=== PATIENT | female | born 1980 | race Caucasian/White ===

== ENCOUNTER → 2018-12-04 20:02 | Outpatient (CLI) | payer OTHER, SELFPAY ==
--- NOTE | 2018-12-04 20:16 | XR_ITS ---
EXAM: XR lumbar spine 6V w bending HISTORY: ITS.REASON: lOW BACK PAIN ORDERING PHYSICIAN: Juju Goldstein PATIENT AGE: 38 years COMPARISON: None FINDINGS: Normal alignment. No fracture or dislocation. No lytic or blastic change. There is mild degenerative disc disease at L5-S1 Incidental vascular calcification noted of the aorta. IMPRESSION: Mild degenerative disc disease L5-S1
== END ==
PROVIDERS: PCP Nurse Practitioner Family; Visit Provider Nurse Practitioner Family
DX: M54.5 Low back pain (principal)
CPT/HCPCS: 72114

== ENCOUNTER → 2019-02-17 08:51 | Outpatient (CLI) | payer OTHER, SELFPAY ==
--- NOTE | 2019-02-17 08:56 | XR_ITS ---
XR hand RT min 3V HISTORY: Posttraumatic pain, follow-up fracture ITS.REASON: 3 views ORDERING PHYSICIAN: Mary Lou Sethi MD PATIENT AGE: 38 years COMPARISON: 02/02/2019 FINDINGS: Comminuted nondisplaced fracture involves the distal aspect of the fifth metacarpal with mild radial and palmar angulation of the distal fracture fragment not significant change. No other abnormalities apparent. IMPRESSION: No change nondisplaced comminuted mildly angulated fracture of the distal aspect of the fifth metacarpal/boxer's fracture
== END ==
PROVIDERS: PCP Nurse Practitioner Family; Visit Provider Orthopaedic Surgery
DX: S62.339A Displaced fracture of neck of unspecified metacarpal bone, initial encounter for closed fracture (principal)
CPT/HCPCS: 73130

== ENCOUNTER → 2019-02-24 10:15 | Outpatient (CLI) | payer OTHER, SELFPAY ==
--- NOTE | 2019-02-24 10:23 | XR_ITS ---
XR hand RT min 3V HISTORY: Follow-up fracture ITS.REASON: rt hand boxer fx followup ORDERING PHYSICIAN: Mary Lou Sethi MD PATIENT AGE: 38 years COMPARISON: 02/17/2019 FINDINGS: Mildly impacted non-displaced fracture involves the distal aspect of the fifth metacarpal consistent with a boxer's fracture unchanged. The distal fracture fragment is angulated toward the radius. IMPRESSION: No change nondisplaced impacted boxer's fracture fifth metacarpal
== END ==
PROVIDERS: PCP Nurse Practitioner Family; Visit Provider Orthopaedic Surgery
DX: S62.331A Displaced fracture of neck of second metacarpal bone, left hand, initial encounter for closed fracture (principal)
CPT/HCPCS: 73130

== ENCOUNTER 2019-03-24 09:00 | Outpatient (RCR) | payer OTHER, SELFPAY | END 2019-04-21 11:14 | disposition home or self-care (01) | LOC: OT 09:00 | PROVIDERS: Visit Provider Physician Assistant Medical | DX: S62.339A Displaced fracture of neck of unspecified metacarpal bone, initial encounter for closed fracture (principal) | CPT/HCPCS: 97110; 97140; 97165 ==

== ENCOUNTER 2020-08-16 13:59 | Emergency (ER) | payer OTHER, SELFPAY ==
[2020-08-16 14:50] VITALS: BP 199/118; PULSE 79; RESP 14; TEMP 36.8; O2SAT 98; BMI 28.0
--- NOTE | 2020-08-16 15:08 | HMH.EDUTC ---
[facility] Disposition Clinical Impression: Viral syndrome, Exposure to COVID-19 virus Pharyngitis Qualifiers: Pharyngitis/tonsillitis etiology: unspecified etiology Qualified Code(s): J02.9 - Acute pharyngitis, unspecified Disposition: Home, Self-Care Condition on Discharge: Good Instructions: Preventing the Spread of Coronavirus Discharge Instructions Additional Instructions: Drink plenty of fluids. Take tylenol for pain or fever. Return if you begin to have difficulty breathing. Follow up with your regular doctor. GO TO THE ER FOR ANY WORSENING SYMPTOMS Prescriptions: Benzonatate [Tessalon Perle 100mg Cap] 100 mg PO TIDP PRN #30 cap PRN Reason: Cough [facility] Azithromycin [Z-Isrrael 250mg Tab*] 250 mg PO UD DOSE PK #6 tab Transmission Status: Received by [facility] Referrals: Valerie Khanna APRN [Primary Care Provider] - Forms: Work/School Release Time of Disposition: 15:17 Medical Decision Making - Medical Records Medical records reviewed: No: I reviewed the patient's medical records. - [place] Inquiry Pt receiving controlled substance: No Vital Signs: 08/16/20 14:50 08/16/20 15:27 Temperature 98.3 F 98.3 F Temperature Source Oral Pulse Rate 79 Pulse Rate [Right Brachial] 79 Respiratory Rate 14 14 Blood Pressure 199/118 H Blood Pressure [Right Arm] 199/118 H Blood Pressure Mean [Right Arm] 145 Blood Pressure Source [Right Arm] Automatic Cuff Blood Pressure Position [Right Arm] Sitting 02 Sat by Pulse Oximetry 98 Oxygen Delivery Method Room Air Orders (Tests/Meds): ORDERS Category Date Time Status Covid-19 Nasal PCR Sendout Subhash Routine Lab 08/16/20 14:45 Received [facility] HPI - General Stated complaint: cough,sore throat,runny nose,achey Time Seen by Provider: 08/16/20 15:08 Mode of Arrival: Ambulatory Source of Information: Patient Limitations: No Limitations Description of Symptoms (Recalled from Triage Doc. by RN): PATIENT REQUESTING COVID TEST D/T EXPOSURE HEENT Symptoms (Recalled from RN notes): No Resp Symptoms (Recalled from RN notes): No Skin Symptoms (Recalled from RN notes): No MS Symptoms (Recalled from RN notes): No Functional Status (Recalled from RN notes): WNL - History of Present Illness Provider Complaint: She c/o sinus congestion, sore throat, cough, and right ear pain for the past 2 days. She denies any documented covid exposure. - Related Data Previous Rx's Medication Instructions Recorded Azithromycin [Z-Isrrael 250mg Tab*] 250 mg PO UD DOSE PK #6 tab 08/16/20 Benzonatate [Tessalon Perle 100mg 100 mg PO TIDP PRN #30 cap 08/16/20 Cap] Allergies Allergy/AdvReac Type Severity Reaction Status Date / Time Penicillins [PENICILLINS] Allergy Mild Verified 02/24/19 11:17 - Worker's Comp Is this a Worker's Comp case?: No [facility] History - Hepatitis A Screen Drug use history?: No High risk sexual behaviors?: No History of sexually transmitted infection?: No Currently employed?: No Childcare worker?: No Do you have indoor plumbing?: Yes Do you have electricity?: Yes Attestation statement:: This patient has been screened for Hepatitis A risk factors. I have reviewed the patient's past medical history: Yes - Social History Smoking Status: Current every day smoker Tobacco Type: cigarettes # Packs/Day (cigarettes): 1 Alcohol Intake: never Occupational Status: other ROS Obtained: Yes All systems reviewed & no additional complaints - Constitutional Constitutional: Reports system reviewed and no additional complaints, except as docu - Eyes Eyes: Reports system reviewed and no additional complaints, except as docu - ENT Ears, Nose, Mouth, and Throat: Reports system reviewed and no additional complaints, except as docu - Cardiovascular Cardiovascular: Reports system reviewed and no additional complaints, except as docu - Respiratory Respiratory: Yes system jesus
[2020-08-16 15:27] VITALS: BP 199/118; PULSE 79; RESP 14; TEMP 36.8; O2SAT 98
[2020-08-18 15:55] LABS: Covid-19 Nasal PCR Sendout Lex Not Detected
== END 2020-08-16 15:29 | disposition home or self-care (01) ==
PROVIDERS: Emergency Provider Nurse Practitioner Family; PCP Nurse Practitioner
DX: Z20.828 Contact with and (suspected) exposure to other viral communicable diseases (principal); B34.9 Viral infection, unspecified; F17.210 Nicotine dependence, cigarettes, uncomplicated; Z88.0 Allergy status to penicillin
CPT/HCPCS: 99201; U0004

== ENCOUNTER 2021-07-18 09:00 | Outpatient (RCR) | payer OTHER, SELFPAY | END 2021-08-15 11:24 | disposition home or self-care (01) | LOC: PT.CARL 09:00 | PROVIDERS: PCP Nurse Practitioner; Visit Provider Orthopaedic Surgery | DX: M54.50 Low back pain, unspecified (principal) | CPT/HCPCS: 97010; 97014; 97110; 97140; 97163; G0283 ==

== ENCOUNTER 2022-07-25 14:24 | Emergency (ER) | payer OTHER, SELFPAY ==
[2022-07-25 16:00] VITALS: BP 141/76; PULSE 61; RESP 18; TEMP 36.8; O2SAT 97; BMI 29.9
--- NOTE | 2022-07-25 16:21 | EXP.UTC ---
Discharge Plan Disposition Patient Disposition: Home, Self-Care Condition: Good Prescriptions Prescriptions: New meclizine 25 mg tablet 25 mg PO TID PRN (Reason: dizziness) Qty: 30 0RF azithromycin [Zithromax Z-Isrrael] 250 mg tablet See Rx Instructions .ROUTE .COMPLEX 5 Days Qty: 6 0RF Rx Instructions: For 250 mg dose pack: take 500 mg today (day 1), then 250 mg for 4 days (days 2-5) methylprednisolone [Medrol (Isrrael)] 4 mg tablets,dose pack See Rx Instructions .Route .COMPLEX 6 Days Qty: 21 0RF Rx Instructions: taper pack; No Action azithromycin 250 MG tablet 250 mg PO UD DOSE PK Qty: 6 0RF Rx Instructions: Take two (2) tablets today, then one (1) tablet days #2 thru #5 benzonatate 100 MG capsule 100 mg PO TIDP PRN (Reason: Cough) Qty: 30 0RF Referrals Follow up/Referrals: Ellen Fox [Primary Care Provider] - See instructions Activity Restrictions/Add. Instructions Additional Instructions/Restrictions: *Monitor Temp, Over the counter Motrin or Tylenol as directed/as needed Tylenol every 4 hours and Motrin every 6 hours (as long as your family doctor has told you that you can take it) for fever or pain. and straight to ER if unable to lower temp less than 101.0 after medication given *Warm salt water gargles may help to soothe the throat *Throat Lozenges? *Warm fluids like tea with honey may help to soothe the throat? *Sleep elevated *Humidifier/Vaporizer *Flonase 2 sprays in each nostril daily but be aware that it may take 2-3 days before you notice improvement *Bromfed may cause drowsiness. Know how it effects you (your child) before driving, caring for small child, or sending your child to school. Not other antihistamines/allergy medications while taking bromfed Your throat swab was sent for culture. Those results are typically sent to your primary care. Be sure to follow up in 2-3 days with your family doctor/primary care physician if no improvement so they can review those result and treat if necessary. If you don?t have a primary care doctor, I recommend you get one but in the mean time, you will have to return to a walk in clinic Follow up IMMEDIATELY for new or worsening symptoms or no Noticeable improvement over the next 48-72 hours. 911 for difficulty breathing or swallowing Clinical Impressions Clinical Impression: Otitis media Stand Alone Forms Stand Alone Forms: Work/School Release Instructions Patient Instructions: Middle Ear Infection, Vertigo Discharge ED Provider: Kylah Quan [facility] HPI General Stated complaint: dizzy, diarrhea Mode of Arrival: Ambulatory Source of Information: Patient Limitations: No Limitations Time Seen by Provider: 07/25/22 16:21 Description of Symptoms (Recalled from Triage Doc. by RN): PATIENT STATES SHE HAS BEEN SICK FOR APPROX 1 WEEK. SHE REPORTS SHE RETURNED TO WORK TODAY AND BECAME DIZZY AND ALMOST PASSED OUT HEENT Symptoms (Recalled from RN notes): Yes Resp Symptoms (Recalled from RN notes): No Skin Symptoms (Recalled from RN notes): No MS Symptoms (Recalled from RN notes): No Functional Status (Recalled from RN notes): WNL History of Present Illness Provider Complaint: Patient states that her son had flu about a week ago and she wasnt feeling well on Sunday States that she didnt feel well over the weekend but thought she was feeling better today and went to work States that she was having some pain and pressure in her left ear and while at work she started feeling bad again and felt dizzy like she was going to pass out but she sit down and she felt better States feels like she may have the flu or ear infection Related Data Previous Rx's Medication Instructions Recorded azithromycin 250 mg tablet 250 mg PO UD DOSE PK #6 tabs 08/16/20 benzonatate 100 mg capsule 100 mg PO TIDP PRN Cough #30 caps 08/16/20 azithromycin 250 mg tablet See Rx Instructions PO .COMPLEX 5 07/25/22 (Zithromax Z-Isrrael) days #
[2022-07-25 16:46] LABS: UTC Influenza A Antigen Negative (Negative); UTC Influenza B Antigen Negative (Negative)
[2022-07-25 16:54] VITALS: BP 141/76; PULSE 61; RESP 18; TEMP 36.8; O2SAT 97
== END 2022-07-25 16:56 | disposition home or self-care (01) ==
PROVIDERS: Emergency Provider Nurse Practitioner; PCP Nurse Practitioner Family
DX: H66.92 Otitis media, unspecified, left ear (principal); R42 Dizziness and giddiness; R19.7 Diarrhea, unspecified; I10 Essential (primary) hypertension; E78.5 Hyperlipidemia, unspecified; F17.210 Nicotine dependence, cigarettes, uncomplicated; Z79.52 Long term (current) use of systemic steroids; Z79.899 Other long term (current) drug therapy; Z88.0 Allergy status to penicillin; Z87.440 Personal history of urinary (tract) infections
CPT/HCPCS: 87804; 99213; G0463

== ENCOUNTER 2023-01-17 08:25 | Emergency (ER) | payer OTHER, SELFPAY ==
[2023-01-17 08:51] VITALS: BP 141/89; PULSE 76; RESP 18; TEMP 36.8; O2SAT 98; BMI 32.7
--- NOTE | 2023-01-17 09:18 | EXP.UTC ---
Discharge Plan Disposition Patient Disposition: Home, Self-Care Condition: Good Prescriptions Prescriptions: New cyclobenzaprine 10 mg tablet 10 mg PO TID PRN (Reason: muscle spasm) Qty: 12 0RF methylprednisolone [Medrol (Isrrael)] 4 mg tablets,dose pack See Rx Instructions .Route .COMPLEX 6 Days Qty: 21 0RF Rx Instructions: taper pack; No Action meclizine 25 mg tablet 25 mg PO TID PRN (Reason: dizziness) Qty: 30 0RF azithromycin [Zithromax Z-Isrrael] 250 mg tablet See Rx Instructions .ROUTE .COMPLEX 5 Days Qty: 6 0RF Rx Instructions: For 250 mg dose pack: take 500 mg today (day 1), then 250 mg for 4 days (days 2-5) methylprednisolone [Medrol (Isrrael)] 4 mg tablets,dose pack See Rx Instructions .Route .COMPLEX 6 Days Qty: 21 0RF Rx Instructions: taper pack; azithromycin 250 MG tablet 250 mg PO UD DOSE PK Qty: 6 0RF Rx Instructions: Take two (2) tablets today, then one (1) tablet days #2 thru #5 benzonatate 100 MG capsule 100 mg PO TIDP PRN (Reason: Cough) Qty: 30 0RF Referrals Follow up/Referrals: Valerie Khanna APRN [Primary Care Provider] - See instructions Activity Restrictions/Add. Instructions Additional Instructions/Restrictions: *Take Ibuprofen as prescribed with meal as needed for pain/inflammation *Not additional anti-inflammatory like motrin, aleve, advil with the above amount of ibuprofen. You can still take Tylenol every 4 hours as needed if you need something else for pain *Ice 20 minutes every 2 hours for the first 48 hours after the initial injury followed by moist heat every 20 minutes 3-4 times a day to affected area *Muscle relaxer every 8 hours as needed for muscle spasms but remember, it WILL cause drowsiness You cannot take it and work, drive, operate machinery or care for small children. *Keep this area active, no movement leads to more stiffness, However take it easy and avoid heavy lifting pushing or pulling *Follow up with you family doctor if no improvement for further treatment Clinical Impressions Clinical Impression: Low back pain with left-sided sciatica Qualifiers: Chronicity: unspecified Back pain laterality: left Qualified Code(s): M54.42 - Lumbago with sciatica, left side Stand Alone Forms Stand Alone Forms: Work/School Release Instructions Patient Instructions: Low Back Pain, DI for Sciatica, DI for Back Pain With Sciatica Discharge ED Provider: Kylah Quan [facility] General Stated complaint: Back pain Mode of Arrival: Ambulatory Source of Information: Patient Limitations: No Limitations Time Seen by Provider: 01/17/23 09:19 Description of Symptoms (Recalled from Triage Doc. by RN): pt states she is having lower L sharp back pain radiating down her leg. pt states she has a hx of sciatica. HEENT Symptoms (Recalled from RN notes): No Resp Symptoms (Recalled from RN notes): No Skin Symptoms (Recalled from RN notes): No MS Symptoms (Recalled from RN notes): Yes Functional Status (Recalled from RN notes): wnl History of Present Illness Provider Complaint: Patient states that she has a history of sciatica States that for the last few days she has been having sharp like pain in her left lower back/buttock area that goes into her her left upper leg States that it feels like it did when she had sciatica States that she is out of her muscle relaxers but took 800mg of Ibuprofen this morning prior to arrival Related Data Previous Rx's Medication Instructions Recorded azithromycin 250 mg tablet 250 mg PO UD DOSE PK #6 tabs 08/16/20 benzonatate 100 mg capsule 100 mg PO TIDP PRN Cough #30 caps 08/16/20 azithromycin 250 mg tablet See Rx Instructions PO .COMPLEX 5 07/25/22 (Zithromax Z-Isrrael) days #6 tabs meclizine 25 mg tablet 25 mg PO TID PRN dizziness #30 tabs 07/25/22 methylprednisolone 4 mg tablets in See Rx Instructions .Route 07/25/22 a dose pack (Medrol (Isrrael)) .COMPLEX 6 days #21 tabs cyclobenzaprine 10 mg tablet 10 mg PO TI
[2023-01-17 09:23] LABS: Apearance,Urine Clear (Clear); Bilirubin,Urine Negative (Negative); Blood, Urine Negative (Negative); Color,Urine Yellow (Yellow); Glucose,Urine (UA) Negative (Negative); Ketones,Urine Negative (Negative); PH,Urine 6.5 (5.0-8.5); Protein,Urine Negative (Negative); UTC Leukocyte Esterase,Urine Negative (Negative); UTC Nitrate,Urine Negative (Negative); Urobilinogen,Urine 0.2 EU/dl (0.2)
[2023-01-17 09:45] VITALS: BP 141/89; PULSE 73; RESP 18; TEMP 36.8
== END 2023-01-17 09:59 | disposition home or self-care (01) ==
PROVIDERS: Emergency Provider Nurse Practitioner; PCP Nurse Practitioner
DX: M54.42 Lumbago with sciatica, left side (principal); I10 Essential (primary) hypertension; E78.5 Hyperlipidemia, unspecified; F17.210 Nicotine dependence, cigarettes, uncomplicated
CPT/HCPCS: 81003; 96372; 99212; 99214; G0463

== ENCOUNTER 2024-05-28 02:36 | Emergency (ER) | payer OTHER, SELFPAY ==
[2024-05-28] VITALS (14 sets, daily range): BP systolic 176–228; BP diastolic 92–118; PULSE 65–88; RESP 14–22; TEMP 36.4–37.1; O2SAT 96–99; BMI 28.8
--- NOTE | 2024-05-28 02:35 | ECG_ITS ---
APPROVED REPORT Exam: Resting ECG HR:85 bpm ECG Measurements Heart Rate 85 AXES IN 159 P 63 QRSd 89 QRS 29 QT 377 T 32 QTc 419 Conclusion SINUS RHYTHM MINIMAL ST DEPRESSION [0.025+ mV ST DEPRESSION] BORDERLINE ECG No STEMI Electronically signed by : PELON ZUÑIGA, 05/28/2024 06:32:37
--- NOTE | 2024-05-28 02:42 | XR_ITS ---
PROCEDURE INFORMATION: Exam: XR Chest Exam date and time: 05/28/2024 2:44 AM Age: 43 years old Clinical indication: Pain; Chest pressure; Additional info: Cp TECHNIQUE: Imaging protocol: Radiologic exam of the chest. Views: 2 views. COMPARISON: No relevant prior studies available. FINDINGS: Tubes, catheters and devices: Overlying monitoring leads. Lungs: Few bilateral lower lung field linear opacities likely atelectatic. No lobar consolidation. Pleural spaces: No pleural effusion. No pneumothorax. Heart/Mediastinum: Cardiac silhouette not enlarged. Bones/joints: Bones unremarkable. IMPRESSION: No evidence of pneumonia. Few bilateral lower lung linear opacities most likely secondary to atelectasis.
[2024-05-28] MEDS: LABETALOL 20MG/4ML SYRINGE 10 MG IV ×2 (02:49→03:25)
[2024-05-28] MEDS: ASPIRIN 81MG CHEWABLE TABLET 324 MG PO (02:49)
--- NOTE | 2024-05-28 02:49 | [facility].EDCP ---
Discharge Plan Disposition Patient Disposition: Home, Self-Care Condition: Good Prescriptions Prescriptions: New hydrochlorothiazide 25 mg tablet 25 mg PO DAILY Qty: 14 0RF No Action meclizine 25 mg tablet 25 mg PO TID PRN (Reason: dizziness) Qty: 30 0RF azithromycin [Zithromax Z-Isrrael] 250 mg tablet See Rx Instructions .ROUTE .COMPLEX 5 Days Qty: 6 0RF Rx Instructions: For 250 mg dose pack: take 500 mg today (day 1), then 250 mg for 4 days (days 2-5) methylprednisolone [Medrol (Isrrael)] 4 mg tablets,dose pack See Rx Instructions .Route .COMPLEX 6 Days Qty: 21 0RF Rx Instructions: taper pack; azithromycin 250 MG tablet 250 mg PO UD DOSE PK Qty: 6 0RF Rx Instructions: Take two (2) tablets today, then one (1) tablet days #2 thru #5 benzonatate 100 MG capsule 100 mg PO TIDP PRN (Reason: Cough) Qty: 30 0RF cyclobenzaprine 10 mg tablet 10 mg PO TID PRN (Reason: muscle spasm) Qty: 12 0RF methylprednisolone [Medrol (Isrrael)] 4 mg tablets,dose pack See Rx Instructions .Route .COMPLEX 6 Days Qty: 21 0RF Rx Instructions: taper pack; Referrals Follow up/Referrals: Provider,Referral, MD [Primary Care Provider] - See instructions Activity Restrictions/Add. Instructions Additional Instructions/Restrictions: You were evaluated in the ER and are appropriate for discharge at this time. Take your metoprolol twice daily, morning and night. You already received a dose of this in the ER this morning. Continue taking your other home medications as prescribed. Also take the newly prescribed hydrochlorothiazide as directed. Follow-up with the cardiology office with Conchis Walters at 10:30 AM tomorrow 05/29/2024. Their phone number is [phone]. Their office is in the specialty clinic here in the hospital. Also follow-up with your primary care doctor in a few days to discuss your symptoms and your new medication changes. Return to the ER with new, worsening, or otherwise concerning symptoms. Clinical Impressions Clinical Impression: Chest pain, Hypertension Print Language Print Language: Vietnamese Discharge ED Provider: Hayder Bal General Chief Complaint: Chest Pain Stated Complaint: Chest Pain Time Seen by Provider: 05/28/24 02:41 Mode of Arrival: Ambulatory Source of Information: Patient Limitations: No Limitations Description of Symptoms (Recalled from ER Triage Doc. by RN): Patient presents to ED with chest pain that started around 0130 tonight. Patient states it is mostly in her right chest but will radiate to her back/left side of chest. Patient denies any injury. History of Present Illness HPI narrative: 43-year-old female with history of hypertension presents to the ER with complaints of chest pain starting approximately an hour prior to arrival. Patient states it woke her up with pain in the right side of her chest radiating to her back into the left side of the chest. Patient states she got up when the pain woke her up, went downstairs and took an antacid and ibuprofen. Did not initially provide relief so she came to the ER for evaluation. Patient reports taking metoprolol as well as some other medication for her blood pressure. She states she did take her medications tonight like she is supposed to. Patient states since arriving in the ER her pain has started to improve. She does not have worse pain with deep inspiration but did note that her pain was worse with activity. Patient states she had similar episode approximately 5 years ago and was evaluated in [place] where she had a normal stress test. Patient did report associated nausea with her symptoms earlier but the nausea has since resolved. No fevers, cough, dysuria, hematuria, shortness of breath, dizziness, or other associated symptoms. Related Data Previous Rx's ?Medication ?Instructions ?Recorded azithromycin 250 mg tablet 250 mg PO UD DOSE PK #6 tabs 08/16/20 benzonatate 100 mg capsule 100 mg PO TIDP PRN Cough #30 caps 08/16/20 azithromycin 250 mg tablet See Rx Instructions PO .COMPLEX 5 07/25/22 (Zithromax Z-Isrrael) days #6 tabs meclizine 25 mg tablet 25 mg PO TID PRN dizziness #30 tabs 07/25/22 methylprednisolone 4 mg tablets in See Rx Instructions .Route 07/25/22 a dose pack (Medrol (Isrrael)) .COMPLEX 6 days #21 tabs cyclobenzaprine 10 mg tablet 10 mg PO TID PRN muscle spasm #12 01/17/23 tabs methylprednisolone 4 mg tablets in See Rx Instructions .Route 01/17/23 a dose pack (Medrol (Isrrael)) .COMPLEX 6 days #21 tabs hydrochlorothiazide 25 mg tablet 25 mg PO DAILY #14 tabs 05/28/24 Allergies Allergy/AdvReac Type Severity Reaction Status Date / Time Penicillins [PENICILLINS] Allergy Mild Verified 01/17/23 08:56 [facility] Disclaimer: The information contained in this section may have been updated after the patient was seen, as this information can be updated by other users. Medical History (Updated 05/28/24 @ 06:25 by Hayder Bal MD) Urinary tract infection Hyperlipidemia Hypertension Social History (Updated 07/25/22 @ 16:14 by Lizzie Lassiter RN) Smoking Status: Current every day smoker tobacco type: cigarettes packs per day: 1 alcohol intake: never current occupational status: other Travel in the last 8 weeks: None ROS Obtained: Yes All systems reviewed & no additional complaints except as documented Positive ROS per HPI Physical Exam General General appearance: alert and in no apparent distress Head Head exam: atraumatic and normocephalic Eye Eye exam: Present PERRL and EOMI ENT ENT exam: Present mucous membranes moist Neck Neck exam: Present normal inspection and full ROM Chest Chest inspection: Present symmetric chest wall rise; Absent tenderness Respiratory Respiratory exam: Present normal lung sounds bilaterally; Absent respiratory distress, wheezes or stridor Cardiovascular Cardiovascular exam: Present regular rate and normal rhythm Abdominal Exam Abdominal exam: Present soft; Absent distention, tenderness, guarding or rebound Extremities Exam Extremities exam: Present full ROM and other (2+ pulses in all extremities); Absent edema Neurological Exam Neurological exam: Present alert and oriented X3; Absent motor sensory deficit Psychiatric Psychiatric exam: Present normal affect and normal mood Skin Skin exam: Present warm and dry HEART Score HEART Score HEART Score assessment performed?: Yes History (anamnesis): Slightly suspicious ECG: Non-specific disturbance Age: 45-65 years Risk factors: 1-2 risk factors Troponin: </= normal limit HEART Score: 3 Critical Care Critical Care Time Critical Care Time: Yes Attestation: On 05/28/24, the high probability of a clinically significant, sudden or life threatening deterioration of the following system(s) (cardiac) required my full and direct attention, intervention and personal management. The time I documented below is in addition to time spent performing reported procedures but includes the following listed in this critical care notation. Total Time Total Critical Care Time: 35 Medical Decision Making Medical Records Medical records reviewed: Yes I reviewed the patient's medical records. MR Comment: Patient evaluated in urgent care for left low back pain in January 2023 prescribed cyclobenzaprine and Medrol pack at that time. Patient also has a history of boxer's fracture in 2019. [place] Inquiry Pt receiving controlled substance: No Vital Signs Vital Signs: 05/28/24 02:37 05/28/24 02:49 05/28/24 02:59 Temperature 97.6 F Temperature Source Oral Pulse Rate 75 Pulse Rate [Right Brachial] 88 Respiratory Rate 18 14 Blood Pressure 228/118 H 195/103 H Blood Pressure [Right Arm] 228/115 H Blood Pressure Mean 158 Blood Pressure Mean [Right Arm] 152 Blood Pressure Source Blood Pressure Source [Right Arm] Automatic Cuff Blood Pressure Position Blood Pressure Position [Right Arm] Supine 02 Sat by Pulse Oximetry 99 98 Oxygen Delivery Method Room Air 05/28/24 03:22 05/28/24 03:22 05/28/24 03:25 Temperature Temperature Source Pulse Rate 68 Pulse Rate [Right Brachial] Respiratory Rate 18 Blood Pressure 208/106 H 208/106 H 208/106 H Blood Pressure [Right Arm] Blood Pressure Mean 133 Blood Pressure Mean [Right Arm] Blood Pressure Source Blood Pressure Source [Right Arm] Blood Pressure Position Blood Pressure Position [Right Arm] 02 Sat by Pulse Oximetry 97 Oxygen Delivery Method 05/28/24 03:31 05/28/24 03:54 05/28/24 03:57 Temperature Temperature Source Pulse Rate 67 65 Pulse Rate [Right Brachial] Respiratory Rate 18 17 Blood Pressure 188/95 H 196/96 H 196/96 H Blood Pressure [Right Arm] Blood Pressure Mean 126 125 Blood Pressure Mean [Right Arm] Blood Pressure Source Blood Pressure Source [Right Arm] Blood Pressure Position Blood Pressure Position [Right Arm] 02 Sat by Pulse Oximetry 97 98 Oxygen Delivery Method 05/28/24 04:00 05/28/24 04:30 05/28/24 05:00 Temperature Temperature Source Pulse Rate 66 69 70 Pulse Rate [Right Brachial] Respiratory Rate 21 22 17 Blood Pressure 182/102 H 176/92 H 176/100 H Blood Pressure [Right Arm] Blood Pressure Mean 120 125 Blood Pressure Mean [Right Arm] Blood Pressure Source Blood Pressure Source [Right Arm] Blood Pressure Position Blood Pressure Position [Right Arm] 02 Sat by Pulse Oximetry 98 96 96 Oxygen Delivery Method 05/28/24 05:30 05/28/24 05:41 Temperature Temperature Source Pulse Rate 66 72 Pulse Rate [Right Brachial] Respiratory Rate 20 20 Blood Pressure 179/107 H 186/94 H Blood Pressure [Right Arm] Blood Pressure Mean 131 Blood Pressure Mean [Right Arm] Blood Pressure Source Manual Cuff/ Auscultation Blood Pressure Source [Right Arm] Blood Pressure Position Supine Blood Pressure Position [Right Arm] 02 Sat by Pulse Oximetry 97 97 Oxygen Delivery Method Room Air Lab Data Labs: Lab Results 05/28/24 02:40: WBC 13.2 H, RBC 5.27, Hgb 16.4 H, Hct 51.3 H, MCV 97.4, MCH 31.1, MCHC 31.9, RDW 13.8, Plt Count 225, MPV 9.2, Neut % (Auto) 61.5, Lymph % (Auto) 29.1, [place] % (Auto) 6.3, Eos % (Auto) 2.0, Baso % (Auto) 1.1, Neut # (Auto) 8.1 H, Lymph # (Auto) 3.8, [place] # (Auto) 0.8, Eos # (Auto) 0.3, Baso # (Auto) 0.2, PT 10.0 L, INR 0.88 L, Sodium 138, Potassium 3.1 L, Chloride 109 H, Carbon Dioxide 25, Anion Gap 7.1, BUN 11, Creatinine 0.70, Estimated Creat Clear 138, Estimated GFR 90, Est GFR ( Amer) 109, Glucose 126 H, Calcium 9.1, Total Bilirubin 0.5, AST 26, ALT 30, Alkaline Phosphatase 94, Troponin I < 0.01, Total Protein 7.6, Albumin 4.3, Globulin 3.3 H, Albumin/Globulin Ratio 1.3 05/28/24 05:40: Troponin I < 0.01 05/28/24 02:40 05/28/24 02:40 Response Orders (Tests/Meds): ED MEDICATIONS Discontinued Medications Generic Name Dose Route Start Last Admin Trade Name Freq PRN Reason Stop Dose Admin Amlodipine Besylate 5 mg 05/28/24 05:46 05/28/24 05:50 Amlodipine 10mg Tablet PO 05/28/24 05:47 Not Given ONCE ONE Amlodipine Besylate 5 mg 05/28/24 05:49 05/28/24 05:50 Amlodipine 5mg Tablet PO 05/28/24 05:50 5 mg ONCE ONE Administration Aspirin 324 mg 05/28/24 02:42 05/28/24 02:49 Aspirin 81mg Chewable Tablet PO 05/28/24 02:43 324 mg ONCE ONE Administration Labetalol HCl 10 mg 05/28/24 02:42 05/28/24 02:49 Labetalol 20mg/4ml Syringe IV 05/28/24 02:43 10 mg ONCE ONE Administration Labetalol HCl 10 mg 05/28/24 03:22 05/28/24 03:25 Labetalol 20mg/4ml Syringe IV 05/28/24 03:23 10 mg ONCE ONE Administration Metoprolol Tartrate 50 mg 05/28/24 05:46 05/28/24 05:49 Metoprolol Tartrate 50mg Tablet PO 05/28/24 05:47 50 mg ONCE ONE Administration Potassium Chloride 40 meq 05/28/24 03:24 05/28/24 03:25 Potassium Chloride 20meq Tab PO 05/28/24 03:25 40 meq ONCE ONE Administration ORDERS Category Date Time Status XR chest 2V Stat Exams 05/28/24 02:42 Completed CMP [Comprehensive Metabolic Panel] Stat Lab 05/28/24 02:40 Completed Complete Blood Count Auto Diff Stat Lab 05/28/24 02:40 Completed PT INR [Prothrombin Time INR] Stat Lab 05/28/24 02:40 Completed Troponin I Q3H Lab 05/28/24 02:40 Completed Troponin I Q3H Lab 05/28/24 05:40 Completed Troponin I Q3H Lab 05/28/24 08:45 Ordered [facility] Narrative Medical Decision Narrative: In summary, this 43-year-old female presents to the emergency department today with chest pain in the setting of comorbidities of hypertension which increases her overall morbidity and risk of cardiac event. On initial evaluation patient is hypertensive but otherwise stable, well-appearing, cardiopulmonary exam is reassuring, no peripheral edema, no chest wall tenderness, remainder of exam benign. Differential diagnosis includes but is not limited to ACS, I considered PE however patient is PERC negative and does not require further workup of this at this time, hypertensive urgency/emergency, endorgan damage, also considered arrhythmia, electrolyte abnormality, esophageal spasm. Based on these concerns, I ordered cardiac workup, serum labs. ECG personally interpreted demonstrates normal sinus rhythm, rate 85, normal axis, normal DE and QTc, trace ST depressions in the inferior leads as well as lead V5, V6, however these are extremely subtle, no STEMI. Patient received aspirin, IV labetalol for treatment. Labetalol was administered for concerns of significant hypertension causing symptoms. After labetalol, patient's blood pressure improved to 197 systolic initially, however shortly thereafter was back above 200 and patient received another dose of labetalol. She did report resolved pain after the first dose. Labs personally reviewed demonstrate mild leukocytosis, hemoglobin slightly elevated at 16.4, normal platelets, mild hypokalemia, patient is receiving oral repletion, initial troponin undetectably low at less than 0.01, CMP otherwise nonactionable. Patient placed into ED observation at 0325 for serial troponins to rule out evolving AK and to preclude unnecessary admission. XR personally interpreted demonstrates no acute intrathoracic abnormality, see radiology read for final interpretation. After second dose of labetalol, patient has maintained blood pressures in the upper 180s systolics. She continues to be asymptomatic. I further reviewed medications with her, she states she takes losartan 100 mg nightly, metoprolol 50 mg in the morning, amlodipine 5 mg in the morning, as well as atorvastatin and daily aspirin. Patient received a dose of metoprolol and amlodipine in the ER. Repeat troponin also undetectably low at less than 0.01. Since patient had difficulty control hypertension in the ER and was symptomatic from her hypertension despite being compliant with her home medications, I called Dr. Avalos and had a discussion with him over the phone regarding her current medications. He recommends patient increase her metoprolol to twice daily and adding hydrochlorothiazide 25 mg daily as well as outpatient follow-up with the cardiology clinic at 10:30 AM tomorrow 05/29/2024 with Conchis Walters. Patient is appropriate for discharge at this time. She continues to be asymptomatic. During observation in the ER she had no concerning changes in her vitals. Patient was given instructions on symptomatic management, instructions about her new prescription changes, follow up instructions, and return precautions for the emergency department. Patient indicated understanding and was discharged in stable condition. Total time in ED observation 3 hours.
[2024-05-28 02:55] LABS: Basophils # 0.2 K/mm3 (0-0.2); Basophils % 1.1 % (0.1-2.0); Eosinophils # 0.3 K/mm3 (0.0-0.4); Hematocrit 51.3 % (37.0-47.0); Hemoglobin 16.4 g/dL (12.2-16.2); Lymphocytes # 3.8 K/mm3 (0.7-4.5); Lymphocytes % 29.1 % (10-50); Mean Corpuscular HGB Conc 31.9 g/dL (31.8-35.4); Mean Corpuscular Hemoglobin 31.1 pg (27.0-31.2); Mean Corpuscular Volume 97.4 fl (81-99); Mean Platelet Volume 9.2 fl (7.4-10.4); Monocytes # 0.8 K/mm3 (0.1-1.0); Monocytes % 6.3 % (1.7-9.3); Neutrophils # 8.1 K/mm3 (1.8-7.8); Neutrophils % 61.5 % (37.0-80.0); Platelet Count 225 K/mm3 (142-424); Red Blood Count 5.27 M/mm3 (4.20-5.40); Red Cell Distribution Width 13.8 % (11.5-17.5); White Blood Count 13.2 K/mm3 (4.8-10.8)
[2024-05-28 02:57] LABS: Albumin Level 4.3 g/dl (3.5-5.0); Chloride 109 mmol/L (98-107); Potassium 3.1 mmoL/L (3.5-5.1); Sodium 138 mmol/L (136-145)
[2024-05-28 03:00] LABS: Alanine Aminotransferase 30 U/L (12-78); Albumin/Globulin Ratio 1.3 (1.1-1.8); Alkaline Phosphatase 94 U/L (38-126); Anion Gap 7.1 mEq/L (5-15); Aspartate Amino Transferase 26 U/L (14-36); Bilirubin,Total 0.5 mg/dl (0.2-1.3); Blood Urea Nitrogen 11 mg/dl (7-17); Calcium 9.1 mg/dl (8.4-10.2); Carbon Dioxide 25 mmol/L (22.0-30.0); Creatinine Clearance Estimated 138 mL/min (50-200); Estimated Glomerular Filt Rate 90 ml/min (>60); GFR (African American) 109 ML/MIN (>60); Globulin 3.3 g/dL (1.3-3.2); Glucose 126 mg/dl (74-100); INR 0.88 (0.9-1.1); Total Protein,Serum 7.6 g/dl (6.3-8.2)
[2024-05-28 03:16] LABS: Troponin I < 0.01 ng/ml (0.00-0.034)
[2024-05-28] MEDS: POTASSIUM CHLORIDE 20MEQ TAB 40 MEQ PO (03:25)
[2024-05-28] MEDS: METOPROLOL TARTRATE 50MG TABLET 50 MG PO (05:49)
[2024-05-28] MEDS: AMLODIPINE 5MG TABLET 5 MG PO (05:50)
[2024-05-28 06:08] LABS: Troponin I < 0.01 ng/ml (0.00-0.034)
== END 2024-05-28 06:31 | disposition home or self-care (01) ==
PROVIDERS: Emergency Provider Emergency Medicine
DX: E87.6 Hypokalemia (principal); R07.9 Chest pain, unspecified; I10 Essential (primary) hypertension; E78.5 Hyperlipidemia, unspecified; F17.210 Nicotine dependence, cigarettes, uncomplicated
CPT/HCPCS: 71046; 80053; 84484; 85025; 85610; 93005; 96374; 96376; 99284

== ENCOUNTER 2024-06-05 13:33 | Outpatient (CLI) | payer OTHER, SELFPAY ==
--- NOTE | 2024-06-05 13:35 | CA_ITS ---
APPROVED REPORT EXAM: Comprehensive 2D, Doppler, and color-flow Echocardiogram Charter Coordinator: Shannen Pinto CRT Ht: 5 ft 8 in Wt: 199lbs BSA: 2.04 BP: 174/93 mmHg Indications: Abnormal ECG, Chest Pain, Dizziness and Vertigo, Fatigue, Hyperlipidemia, Hypertension/HDD, smoker 2D Dimensions Left Atrium 3.77 cm LVEF (Chavez's) 55.70 % LVOT 2.12 cm (M/F) 1.5-2.5 LV Volume 77.40 mL LA Volume 41.50 mL LA Volume Index 20.30 mL/m2 (M/F) 16-34 EF AP4 59.60 % EF AP2 57.0 % EF BP 55.7 % GL Strain -17.2 % M-Mode Dimensions RVDd 2.04 cm (0.9-2.6) LVDd 5.05 cm (3.5-5.7) Ao Diam 3.08 cm (2.0-3.7) LVDs 3.18 cm (3.5-5.7) IVSd 1.31 cm (0.6-1.1) PWd 0.95 cm (0.6-1.1) EF (Teich) 66.70% FS 37.00% EDV (Teich) 121.00 mL TAPSE 2.79 (<1.7) ESV (Teich) 40.30 mL LV Diastology MED E' 8.4 (>= 7 cm/sec) MED A' 12.60 cm/s LAT E' 7.7 (>= 10 cm/sec) LAT A' 9.20 cm/s Aortic Valve AoV Peak Peter. 158.0 (50-130 cm/s) AO Peak GR. 10.10 mmHg Tricuspid Valve TR P. Velocity 248.00 cm/s RAP Estimate 10.00 mmHg RVSP 34.60 mmHg Left Ventricle The left ventricle is normal size. The left ventricular systolic function is normal. The left ventricular ejection fraction is within the normal range. There is normal left ventricular wall thickness. There is normal LV segmental wall motion. The left ventricular diastolic function is normal. LVEF is 55%. Right Ventricle The right ventricle is normal size. The right ventricular systolic function is normal. Atria The left atrium size is normal. The right atrium size is normal. There is no Doppler evidence of interatrial shunt. Aortic Valve The aortic valve opens well. There is no aortic valvular stenosis. No aortic regurgitation is present. Mitral Valve The mitral valve is normal in structure. No evidence of mitral valve stenosis. There is no mitral valve regurgitation noted. Tricuspid Valve The tricuspid valve leaflets are thin and pliable. Trace tricuspid regurgitation. There is insufficient TR jet to estimate RVSP. Pulmonic Valve The pulmonary valve is normal in structure. Trace pulmonic regurgitation. Great Vessels The aortic root is normal in size. The ascending aorta is normal in size. IVC is normal in size and collapses >50% with inspiration. Pericardium There is no pericardial effusion. Other Information Study Quality: Adequate Conclusion Normal biventricular systolic function. No significant valvular stenosis or regurgitation. Electronically signed by : Chelsea Gimenez MD 06/08/2024 01:48:22
== END 2024-06-05 23:59 | disposition home or self-care (01) ==
LOC: RT 13:33
PROVIDERS: PCP Nurse Practitioner; Visit Provider Nurse Practitioner Family
DX: R07.89 Other chest pain (principal); R94.31 Abnormal electrocardiogram [ECG] [EKG]; R42 Dizziness and giddiness; I99.8 Other disorder of circulatory system
CPT/HCPCS: 93306

== ENCOUNTER 2024-06-10 11:41 | Outpatient (CLI) | payer OTHER, SELFPAY ==
--- NOTE | 2024-06-10 11:42 | CT_ITS ---
APPROVED REPORT Administrative Staff Supervisor: CLINICAL INDICATION Chest Pain TECHNIQUE Image Acquisition: A 128 slice MDCT scanner ([employer] View) was used for data acquisition. A noncontrast coronary calcium scan was performed. A CT attenuation threshold of 130 Hounsfield units (HU) was used for the detection of calcium in contiguous voxels of 1 sq mm in area to be counted as individual lesions. Bolus tracking in the ascending aorta with a threshold of 180 HU was performed. Immediately afterwards, ECG synchronized cardiac CT was then performed from the cardiac base to apex using retrospective gating with ECG tube current modulation. A total of 85 mL of Isovue 370 mg/mL contrast medium was administered at 5 mL/sec followed by a saline flush using a biphasic injection protocol. A tube voltage of 120 KVp was used. The patient received the following medications prior to the cardiac CT. 0.8 mg of sublingual nitroglycerin The average heart rate at the time of acquisition was 58 bpm and regular. Image Reconstruction Transaxial images were reconstructed at 0.67 mm slide thickness. Data was reviewed interactively on an advanced workstation capable of 2 and 3-dimensional displays in all conventional reconstruction formats, including multiplanar reformations, maximum intensity projections, curved multiplanar reformations, and volume rendered reconstructions. When applicable, selected routine images describing the relevant coronary anatomy and pathology were saved and sent to PACS. Complications None Technical Quality Overall image quality was good. Coronary artery opacification was adequate. Total DLP (Dose-Length Product) is 1933.4 mGy-cm. The reported value represents the total of one or more individual components during the CT acquisition of this date and at this time, and as such, the same value may appear in more than one CT report depending on the interpreting/reporting physicians. COMPARISON None FINDINGS CT Coronary Calcium Scoring LMA (Left Main Artery) = 0 LAD (Left Anterior Descending) = 89 LCX (Left Coronary Circumflex) = 33 RCA (Right Coronary Artery) = 3 Total Calcium Score = 126 using the AJ-130 method. The observed calcium score of 126 is at 99th percentile for subjects of the same age, sex, and race/ethnicity. The interpretation of the calcium heart score is based on the following continuum*: 0 = no calcified plaque detected (risk of coronary artery disease is very low ??? less than 5%) 1-10 = calcium detected in extremely minimal levels (risk of coronary diseases is still low ??? less than 10%) 11-100 = mild levels of plaque detected with certainty (mild or minimal narrowing of heart arteries is likely) 101-400 = definite,at least moderate levels of plaque detected (relatively high risk of a heart attack within 3-5 years) >401-999 = extensive levels of plaque detected (high risk of heart attack, high levels of vascular disease are present, high likelihood of at least one significant coronary narrowing) *The calcium heart score quantifies the burden of coronary calcification/plaque in the coronary arteries. The calcium heart score is not able to evaluate the presence or burden of non-calcified (i.e. soft) plaque. There is also moderate calcification in the descending thoracic aorta. Coronary CT Angiography The coronary arterial system is right dominant. Quantitative Stenosis Grading: Left Main (LM): The left main originates normally from the left sinus of Valsalva. The LM bifurcates into the left anterior descending artery and left circumflex artery. The LM is patent with no evidence of atherosclerosis. Left Anterior Descending (LAD) and Diagonal Branches: The LAD gives off 2 diagonal branch(es). There is mixed calcified/noncalcified plaque in the proximal LAD segment at the bifurcation with the first diagonal branch, with up to 50-70% luminal stenosis. There is no evidence of LAD-myocardial bridge. Left Circumflex (LCX) and Obtuse Marginals (OM): The LCX gives off 1 Obtuse Marginal (OM) branch(es). There is mixed calcified/noncalcified plaque in the proximal LCx segment with up to 70-90% luminal stenosis. Right Coronary Artery (RCA): The RCA originates normally from the right sinus of Valsalva. The RCA gives off a posterior descending artery (PDA) and posterolateral (PL) branches. There is a focus of calcified plaque in the proximal RCA segment, with no evidence of luminal stenosis. Non-Coronary Cardiac Findings: Analysis of the left ventricular (LV) structure and function was performed after 3-D reconstruction of the LV from axial images, with user-corrected automatic contouring for assessment of LV volumes and user-defined reconstruction from oblique planes for measurement of 3-D cardiac structure and function. -The left ventricle systolic function is normal. -There is no left atrial appendage filling defect. Two right pulmonary veins and two left pulmonary veins drain normally into the left atrium. -No pericardial thickening or calcification. -Central and branch pulmonary arteries in the [id number] are unremarkable. -Thoracic aorta within the visualized thoracic aortic-branches in the [id number] is unremarkable. Extracardiac Structures No significant extra-cardiac findings. Note, however, that this study is focused on the cardiac findings. IMPRESSION -Presence of coronary calcification with an Agatston score = 126 using the AJ-130 method. -The observed calcium score of 126 is at 99th percentile for subjects of the same age, sex, and race/ethnicity. -Moderate to severe plaque in the proximal LAD and proximal LCx segments, with possible flow-limiting atherosclerosis. -CAD-RADS 4A. Management recommendations per ACC/AHA guidelines*, as clinically appropriate. -Moderate calcification in the descending thoracic aorta. *Recommendations: CAD RADS 0: Reassurance. Consider non-atherosclerotic causes of chest pain. CAD RADS 1: Consider non-atherosclerotic causes of chest pain. Consider preventive therapy and risk factor modification. CAD RADS 2: Consider non-atherosclerotic causes of chest pain. Consider preventive therapy and risk factor modification, particularly for patients with nonobstructive plaque in multiple segments. CAD RADS 3: Consider further functional testing. Consider symptom-guided anti-ischemic and preventive pharmacotherapy as well as risk factor modification per published guideline statements. CAD RADS 4A: Consider further functional testing or invasive coronary angiography with revascularization per published guideline statements. Consider symptom-guided anti-ischemic and preventive pharmacotherapy as well as risk factor modification per published guideline statements. CAD RADS 4B: Invasive coronary angiography recommended with revascularization per published guideline statements. Consider symptom-guided anti-ischemic and preventive pharmacotherapy as well as risk factor modification per published guideline statements. CAD RADS 5: Consider invasive angiography and/or viability assessment with revascularization per published guideline statements. Consider symptom-guided anti-ischemic and preventive pharmacotherapy as well as risk factor modification per published guideline statements. CRITICAL RESULT None COMMUNICATION Per this written report The coronary and cardiac findings of this CCTA were reviewed, reported, and signed by Toni Gimenez MD (Tire Mechanic) Conclusion Electronically signed by : Chelsea Gimenez MD 06/11/2024 13:03:19
[2024-06-10 11:49] VITALS: BMI 24.3
[2024-06-10 11:58] VITALS: BP 159/68; PULSE 68; RESP 16; O2SAT 98
[2024-06-10] MEDS: METOPROLOL TARTRATE 25MG TABLET *IVABRADINE+METOPROLOL REGIMINE 25 MG PO (12:04)
[2024-06-10 12:08] LABS: Urine Pregnancy, HCG Qual. Negative (Negative)
[2024-06-10 12:16] LABS: Chloride 113 mmol/L (98-107); Potassium 3.3 mmoL/L (3.5-5.1); Sodium 139 mmol/L (136-145)
[2024-06-10 12:19] LABS: Anion Gap 5.3 mEq/L (5-15); Blood Urea Nitrogen 17 mg/dl (7-17); Calcium 9.3 mg/dl (8.4-10.2); Carbon Dioxide 24 mmol/L (22.0-30.0); Creatinine Clearance Estimated 102 mL/min (50-200); Estimated Glomerular Filt Rate 78 ml/min (>60); GFR (African American) 94 ML/MIN (>60); Glucose 99 mg/dl (74-100)
[2024-06-10 12:34] VITALS: BP 172/91; PULSE 62; RESP 16; O2SAT 95
[2024-06-10] MEDS: NITROGLYCERIN 0.4MG SL TABLET 0.8 MG SL (12:34)
[2024-06-10 12:37] VITALS: BP 164/102; PULSE 60; RESP 16; O2SAT 97
[2024-06-10 12:40] VITALS: BP 143/81; PULSE 64; RESP 16; O2SAT 96
[2024-06-10 12:43] VITALS: BP 137/73
[2024-06-10] MEDS: SODIUM CHLORIDE 0.9% 10ML SYR (RAD ONLY) 10 ML IV (12:52)
[2024-06-10] MEDS: IOPAMIDOL-370 (76%);100ML BOTTLE 85 ML IV (12:52)
[2024-06-10] MEDS: 0.9 % SODIUM CHLORIDE 50 ML VIAL IV (12:52)
[2024-06-10 12:56] VITALS: BP 143/83; PULSE 54; RESP 16; O2SAT 97
== END 2024-06-10 12:59 | disposition home or self-care (01) ==
PROVIDERS: PCP Physician Assistant; Visit Provider Nurse Practitioner Family
DX: R07.89 Other chest pain (principal); R94.31 Abnormal electrocardiogram [ECG] [EKG]; R42 Dizziness and giddiness; I99.8 Other disorder of circulatory system
CPT/HCPCS: 75574; 80048; 81025; Q9967

== ENCOUNTER 2024-07-10 08:23 | Day surgery (SDC) | payer OTHER, SELFPAY ==
[2024-07-10] VITALS (13 sets, daily range): BP systolic 121–156; BP diastolic 61–93; PULSE 51–72; RESP 16–18; TEMP 36.9; O2SAT 92–99; BMI 30.2
--- NOTE | 2024-07-10 07:16 | IR_ITS ---
APPROVED REPORT Patient Location: Outpatient Press Cutter: Andrew Parish, RT (R) PROCEDURES Left heart catheterization Left ventriculogram Selective coronary angiogram Bilateral selective renal angiogram Drug-eluting stent deployment to the first obtuse marginal artery INDICATION Abnormal CCTA, Angina pectoris, History of malignant hypertension suspected renal artery stenosis with renovascular hypertension Informed consent was obtained prior to the procedure. COMPLICATIONS NONE Estimated Blood Loss: LESS THAN 10 ML TECHNIQUE One percent lidocaine used to anesthetize the right anterior aspect of the wrist. The right radial artery was accessed via the Seldinger technique. A 6 [place]an sheath was placed in the right radial artery. 2.5 mg of Verapamil, 800 mcg of nitroglycerin, 1mg Lidocaine and 5000 U Heparin were given through the arterial sheath. Due to tortuosity in the antecubital region the catheter would not pass through that area. Because of this 1% lidocaine was used anesthetize the right groin the right femoral artery was accessed via the center technique and a 4 [place]an sheath is placed in the right femoral artery. A JL 4 JR4 catheter was used to perform left heart catheterization left ventriculogram selective coronary angiography as well as bilateral selective renal angiography. At the end of the procedure the 4 [place]an sheath was exchanged for a 6 [place]an sheath therapeutic Was administered giving a therapeutic ACT and a JL 4 guide catheter was placed in the left main artery followed by a Choice PT extra-support wire placed down the circumflex artery. A 2.5 x 22 mm Edson frontier stent was deployed at 16 cherry reducing the severe stenosis to 0%. ABBY-3 flow was present before and after the procedure. At the end the procedure the apparatus was removed the groin is reprepped closure change sheath was removed and hemostasis was achieved using Perclose device patient was transferred to the postop holding in stable condition ANGIOGRAPHIC RESULTS The left main artery Normal The left anterior descending artery Has a proximal concentric smooth 30% stenosis. The mid LAD then has a concentric 50% stenosis immediately after a large second diagonal artery. There is an additional mid vessel 30% stenosis along a tortuous bend. The first diagonal artery is medium in size and has an ostial 30% stenosis while a much larger caliber second diagonal artery has an ostial proximal concentric 60 to 70% stenosis. The second diagonal artery is nearly the same size as the mid LAD. The circumflex artery Is a nondominant yet still large vessel with a long concentric 30% proximal stenosis. A large first obtuse marginal artery has a proximal concentric 70% stenosis The right coronary artery Is a dominant vessel and has proximal 10 to 20% stenoses with distal 10% luminal regularities The CALLAHAN ventriculogram reveals Hyperdynamic at 70% The left ventricular end-diastolic pressure Elevated at 25 mmHg Bilateral renal arteries are singular and normal IMPRESSION Moderate to severe disease in the mid LAD involving a large second diagonal artery as described above which is best managed medically for the time being unless recalcitrant angina Severe disease in a large first obtuse marginal artery with successful stenting reducing the lesion to 0% with 1 drug-eluting stent Hyperdynamic ventricle Elevated LVEDP PLAN 1. Effient and aspirin 2. Recommend medical management for the mid LAD and large second diagonal artery. Bifurcating stents would be required in the LAD is not at the point where it requires revascularization. Currently patient's blood pressure remains elevated as does her LVEDP. There should be significant room to better control blood pressure and maximize antianginal medications and treating these lesions medically. If patient fails medical management revascularization can be considered in the future 3. Cardiac rehabilitation 4. Avoidance of tobacco products 5. LDL less than 55 to achieve this high-intensity statin Electronically signed by : Hipolito Avalos MD 07/10/2024 11:57:15
[2024-07-10 09:06] LABS: Basophils # 0.2 K/mm3 (0-0.2); Basophils % 1.3 % (0.1-2.0); Eosinophils # 0.4 K/mm3 (0.0-0.4); Hematocrit 49.1 % (37.0-47.0); Hemoglobin 16.7 g/dL (12.2-16.2); Lymphocytes # 3.1 K/mm3 (0.7-4.5); Lymphocytes % 27.6 % (10-50); Mean Corpuscular Hemoglobin 31.3 pg (27.0-31.2); Mean Corpuscular Volume 91.9 fl (81-99); Mean Platelet Volume 8.2 fl (7.4-10.4); Monocytes # 0.8 K/mm3 (0.1-1.0); Monocytes % 6.6 % (1.7-9.3); Neutrophils % 61.4 % (37.0-80.0); Platelet Count 226 K/mm3 (142-424); Red Blood Count 5.34 M/mm3 (4.20-5.40); Red Cell Distribution Width 13.6 % (11.5-17.5); White Blood Count 11.3 K/mm3 (4.8-10.8)
[2024-07-10 09:26] LABS: Chloride 108 mmol/L (98-107); Potassium 3.9 mmoL/L (3.5-5.1); Sodium 140 mmol/L (136-145)
[2024-07-10 09:28] LABS: Blood Urea Nitrogen 15 mg/dl (7-17); Creatinine Clearance Estimated 145 mL/min (50-200); Estimated Glomerular Filt Rate 90 ml/min (>60); GFR (African American) 109 ML/MIN (>60)
[2024-07-10 09:29] LABS: Anion Gap 9.9 mEq/L (5-15); Carbon Dioxide 26 mmol/L (22.0-30.0); Glucose 107 mg/dl (74-100)
[2024-07-10 10:25] LABS: HCG Qualitative, Serum Negative (Negative)
[2024-07-10] MEDS: diphenhydrAMINE 50MG/ML VIAL 50 MG IV (10:48)
[2024-07-10] MEDS: LIDOCAINE 1% 10ML MDV 20 ML IJ (10:48)
[2024-07-10] MEDS: VERAPAMIL 2.5MG/ML 2ML VIAL 2.5 MG IV (10:48)
[2024-07-10] MEDS: HEPARIN 1,000 UNITS/ML 10ML VIAL (CATH LAB) 10000 UNIT IV ×3 (10:48→11:43)
[2024-07-10] MEDS: HEPARIN 1,000 UNITS/500ML NS (CATH LAB) 3000 UNIT IV (10:49)
[2024-07-10] MEDS: NITROGLYCERIN 800MCG/8ML SYR (CATH LAB) 800 MCG IA (10:49)
[2024-07-10] MEDS: 0.9 % SODIUM CHLORIDE 500 ML 25 ML IV (10:50)
[2024-07-10] MEDS: PRASUGREL 10MG TAB 60 MG PO (11:39)
[2024-07-10] MEDS: MIDAZOLAM HCL 1MG/ML 5ML VIAL 1 MG IV (11:40)
[2024-07-10] MEDS: FENTANYL 100MCG/2ML VIAL 50 MCG IV (11:41)
[2024-07-10 13:44] LABS: CATHL Activated Clotting Time 223 SEC (74-125)
[2024-07-10] MEDS: IOPAMIDOL-370 (76%);100ML BOTTLE 105 ML IV (13:53)
== END 2024-07-10 14:55 | disposition home or self-care (01) ==
PROVIDERS: PCP Nurse Practitioner; Visit Provider Internal Medicine
DX: I25.118 Atherosclerotic heart disease of native coronary artery with other forms of angina pectoris (principal); I10 Essential (primary) hypertension; Z79.899 Other long term (current) drug therapy; I70.1 Atherosclerosis of renal artery; I15.0 Renovascular hypertension; F17.210 Nicotine dependence, cigarettes, uncomplicated; E78.5 Hyperlipidemia, unspecified; R93.1 Abnormal findings on diagnostic imaging of heart and coronary circulation; R06.02 Shortness of breath; Z82.49 Family history of ischemic heart disease and other diseases of the circulatory system
CPT/HCPCS: 36252; 80048; 84703; 85025; 85347; 92928; 93458; 99152; 99153; C1725; C1760; C1769; C1874; C1894; C9600; J1200; J1644; J2250; J3010; Q9967

== ENCOUNTER 2024-07-24 10:06 | Outpatient (CLI) | payer OTHER, SELFPAY ==
[2024-07-24 10:52] LABS: Basophils # 0.1 K/mm3 (0-0.2); Basophils % 0.9 % (0.1-2.0); Eosinophils # 0.3 K/mm3 (0.0-0.4); Eosinophils % 2.6 % (0.1-12.0); Hemoglobin 15.7 g/dL (12.2-16.2); Lymphocytes # 3.1 K/mm3 (0.7-4.5); Lymphocytes % 25.6 % (10-50); Mean Corpuscular HGB Conc 34.2 g/dL (31.8-35.4); Mean Corpuscular Hemoglobin 31.4 pg (27.0-31.2); Mean Corpuscular Volume 91.9 fl (81-99); Mean Platelet Volume 7.8 fl (7.4-10.4); Monocytes # 0.9 K/mm3 (0.1-1.0); Monocytes % 7.1 % (1.7-9.3); Neutrophils # 7.8 K/mm3 (1.8-7.8); Neutrophils % 63.9 % (37.0-80.0); Platelet Count 258 K/mm3 (142-424); Red Cell Distribution Width 13.7 % (11.5-17.5); White Blood Count 12.2 K/mm3 (4.8-10.8)
[2024-07-24 11:09] LABS: Anion Gap 11.2 mEq/L (5-15); Blood Urea Nitrogen 10 mg/dl (7-17); Calcium 9.2 mg/dl (8.4-10.2); Carbon Dioxide 24 mmol/L (22.0-30.0); Chloride 109 mmol/L (98-107); Estimated Glomerular Filt Rate 108 ml/min (>60); GFR (African American) 131 ML/MIN (>60); Glucose 80 mg/dl (74-100); Potassium 4.2 mmoL/L (3.5-5.1); Sodium 140 mmol/L (136-145)
== END 2024-07-24 23:59 | disposition home or self-care (01) ==
PROVIDERS: PCP Nurse Practitioner; Visit Provider Nurse Practitioner Family
DX: I25.118 Atherosclerotic heart disease of native coronary artery with other forms of angina pectoris (principal); R53.83 Other fatigue; I10 Essential (primary) hypertension; E78.2 Mixed hyperlipidemia; Z72.0 Tobacco use
CPT/HCPCS: 36415; 80048; 85025

== ENCOUNTER 2024-07-30 09:22 | Outpatient (RCR) | payer OTHER, SELFPAY | END 2024-07-30 23:59 | disposition home or self-care (01) | LOC: PT 09:22 | PROVIDERS: Visit Provider Internal Medicine | DX: Z98.890 Other specified postprocedural states (principal); Z95.5 Presence of coronary angioplasty implant and graft | CPT/HCPCS: 93798 ==

== ENCOUNTER 2024-08-20 11:50 | Outpatient (CLI) | payer OTHER, SELFPAY ==
[2024-08-20 13:07] LABS: Alanine Aminotransferase 16 U/L (12-78); Albumin Level 4.3 g/dl (3.5-5.0); Alkaline Phosphatase 66 U/L (38-126); Anion Gap 15.6 mEq/L (5-15); Aspartate Amino Transferase 26 U/L (14-36); Bilirubin,Direct 0.6 mg/dl (0.0-0.4); Bilirubin,Indirect 0.2 mg/dL (0.0-0.9); Bilirubin,Total 0.8 mg/dl (0.2-1.3); Bilirubin,Unconjugated 0.2 mg/dL (0.0-1.1); Blood Urea Nitrogen 17 mg/dl (7-17); Calcium 9.5 mg/dl (8.4-10.2); Carbon Dioxide 22 mmol/L (22.0-30.0); Chloride 105 mmol/L (98-107); Chol/HDL Ratio 6.9 (1-3.5); Cholesterol 257 mg/dl (140-200); Estimated Glomerular Filt Rate 68 ml/min (>60); GFR (African American) 82 ML/MIN (>60); Glucose 109 mg/dl (74-100); HDL Cholesterol 37 mg/dl (40-60); Potassium 4.6 mmoL/L (3.5-5.1); Sodium 138 mmol/L (136-145); Total Protein,Serum 7.2 g/dl (6.3-8.2); Triglycerides 176 mg/dl (30-150); VLDL Cholesterol 35 mg/dL (0-40)
[2024-08-20 13:17] LABS: Direct LDL Cholesterol 189.11 mg/dL (100-129)
== END 2024-08-20 23:59 | disposition home or self-care (01) ==
PROVIDERS: PCP Nurse Practitioner; Visit Provider Nurse Practitioner Family
DX: R06.83 Snoring (principal); I10 Essential (primary) hypertension; E78.2 Mixed hyperlipidemia; I25.118 Atherosclerotic heart disease of native coronary artery with other forms of angina pectoris; Z72.0 Tobacco use
CPT/HCPCS: 36415; 80048; 80061; 80076

== ENCOUNTER 2024-08-25 09:17 | Outpatient (CLI) | payer OTHER, SELFPAY ==
[2024-08-25 10:08] LABS: Chloride 107 mmol/L (98-107); Potassium 3.9 mmoL/L (3.5-5.1); Sodium 139 mmol/L (136-145)
[2024-08-25 10:11] LABS: Alanine Aminotransferase 17 U/L (12-78); Alkaline Phosphatase 75 U/L (38-126); Anion Gap 11.9 mEq/L (5-15); Aspartate Amino Transferase 22 U/L (14-36); Bilirubin,Direct 0.4 mg/dl (0.0-0.4); Bilirubin,Indirect 0.1 mg/dL (0.0-0.9); Bilirubin,Total 0.5 mg/dl (0.2-1.3); Blood Urea Nitrogen 21 mg/dl (7-17); Carbon Dioxide 24 mmol/L (22.0-30.0); Chol/HDL Ratio 5.8 (1-3.5); Cholesterol 193 mg/dl (140-200); Estimated Glomerular Filt Rate 60 ml/min (>60); GFR (African American) 73 ML/MIN (>60); HDL Cholesterol 33 mg/dl (40-60); Total Protein,Serum 6.7 g/dl (6.3-8.2); Triglycerides 135 mg/dl (30-150); VLDL Cholesterol 27 mg/dL (0-40)
[2024-08-25 10:12] LABS: Calcium 9.5 mg/dl (8.4-10.2); Glucose 92 mg/dl (74-100)
[2024-08-25 10:28] LABS: Direct LDL Cholesterol 139.26 mg/dL (100-129)
== END 2024-08-25 23:59 | disposition home or self-care (01) ==
LOC: LAB 09:17
PROVIDERS: Nurse Practitioner Family; PCP Nurse Practitioner; Visit Provider Nurse Practitioner
DX: R06.83 Snoring (principal); I25.118 Atherosclerotic heart disease of native coronary artery with other forms of angina pectoris; R06.02 Shortness of breath; R42 Dizziness and giddiness; E78.2 Mixed hyperlipidemia; R94.31 Abnormal electrocardiogram [ECG] [EKG]; I15.0 Renovascular hypertension; I11.9 Hypertensive heart disease without heart failure; Z72.0 Tobacco use
CPT/HCPCS: 36415; 80048; 80061; 80076

== ENCOUNTER → 2024-10-13 09:50 | Outpatient (CLI) | payer OTHER, SELFPAY | LOC: SL 10-16 09:51 | PROVIDERS: Visit Provider Nurse Practitioner Family | DX: R06.83 Snoring (principal); I10 Essential (primary) hypertension; E78.2 Mixed hyperlipidemia; I25.118 Atherosclerotic heart disease of native coronary artery with other forms of angina pectoris | CPT/HCPCS: G0399 ==

== ENCOUNTER 2024-10-14 12:40 | Outpatient (CLI) | payer OTHER, SELFPAY ==
--- NOTE | 2024-10-14 | CA_ITS ---
APPROVED REPORT Exam: Pharmacologic Technologist: Pepper Jarvis Ht: 5 ft 8 in Wt: 203 lbs BSA: 2.06 m2 HR: 70 bpm BP: 147/86 mmHg Stress Test Details Test: Lexiscan HR Resting HR: 70 bpm Max Heart Rate (APMHR): 175.227610 bpm Max HR Achieved: 99 bpm Target HR (85% APMHR): 148.096273 bpm % of APMHR: 56.57 Recovery HR: 83 bpm BP Resting BP: 147.0/86.0 mmHg Max BP: 147.0/86.0 mmHg Recovery BP: 133.0/79.0 mmHg ECG Resting ECG: Sinus rhythm Stress ECG Conclusion Symptoms: Nausea, dyspnea Arrhythmias/Ectopy: - ST-T Changes: Less than [address] depression. Conclusion: EKG portion unremarkable due to Lexiscan infusion. Electronically signed by : Chelsea Gimenez MD 10/15/2024 11:32:33
--- NOTE | 2024-10-14 12:46 | NM_ITS ---
APPROVED REPORT Exam: Nuclear Stress Test Indication: chest pain..soa..fatigue Patient Location: Outpatient Stress Tech: Pepper Jarvis NM Tech:Ashleigh Mariscal, ARRT, RT (R)(N) Ht: 5 ft 8 in Wt: 200 lbs Bra Size: 38c HR: 71 bpm BP: 147/86 mmHg BSA: 2.04 m2 TID: 1.26 BMI: 30.4 History: chest pain..soa..fatigue Procedure: Patient received 0.4 mg of intravenous Lexiscan, resting heart rate 71 bpm, resting blood pressure 147/86 mmHg, with Lexiscan maximum heart rate achieved was 104 bpm which is 85 % of the maximum predicted heart rate and blood pressure was 145/76 mmHg. With Lexiscan, patient denied any complaint of chest pain. Cardiac Stress and Resting SPECT Images: Cardiac Stress and Resting SPECT images were obtained using technetium 99m Myoview 32.1 mCi stress and 10.56 mCi at rest. Resting and stress imaging in supine and prone positions demonstrate no evidence of fixed or reversible perfusion defects. There is increase in transient ischemic dilatation ratio (TID 1.26), suggestive of possible multivessel disease or balanced ischemia. Gated imaging demonstrates normal global and regional LV systolic function. LVEF is calculated at 64%. Conclusion: No evidence of fixed or reversible perfusion defects. There is increase in transient ischemic dilatation ratio (TID 1.26), suggestive of possible multivessel disease or balanced ischemia. Gated imaging demonstrates normal global and regional LV systolic function. LVEF is calculated at 64%. Electronically signed by : Chelsea Gimenez MD 10/15/2024 11:25:41
[2024-10-14] MEDS: ISOTOPE MYOVIEW (PER STUDY) 1 DOSE IV (13:56)
[2024-10-14] MEDS: SODIUM CHLORIDE 0.9% 10ML SYR (RAD ONLY) 10 ML IV ×2 (13:56)
[2024-10-14] MEDS: REGADENOSON 0.4MG/5ML SYRINGE 0.4 MG IV (13:56)
== END 2024-10-14 23:59 | disposition home or self-care (01) ==
LOC: RAD 12:41
PROVIDERS: PCP Nurse Practitioner; Visit Provider Nurse Practitioner Family
DX: I25.10 Atherosclerotic heart disease of native coronary artery without angina pectoris (principal); R06.02 Shortness of breath
CPT/HCPCS: 78452; 93017; 93018; A9502; J2785

== ENCOUNTER 2024-11-04 08:08 | Day surgery (SDC) | payer OTHER, SELFPAY ==
[2024-11-04] VITALS (17 sets, daily range): BP systolic 85–155; BP diastolic 50–97; PULSE 58–78; RESP 18–20; O2SAT 90–97; BMI 31.3
--- NOTE | 2024-11-04 07:21 | IR_ITS ---
APPROVED REPORT Patient Location: Outpatient Computer Installation Engineer: Andrew Parish, RT (R) PROCEDURES Left heart catheterization Left ventriculogram Selective coronary angiogram Drug-eluting stent deployment to the proximal LAD extending into the second diagonal artery Angioplasty to the mid LAD INDICATION Known coronary artery disease, Worsening angina pectoris, Abnormal Myoview Informed consent was obtained prior to the procedure. COMPLICATIONS None Estimated Blood Loss: Less than 10 mls TECHNIQUE One percent lidocaine was used to anesthetize the right groin. The right femoral artery was accessed via the Seldinger technique. A 4-Scottish sheath was placed in the right femoral artery. The JL-4 and JR-4 catheter was also used to perform left heart catheterization left ventriculogram and selective coronary angiogram. At the end of the diagnostic angiogram therapeutic heparin was administered giving a therapeutic ACT and the guide catheter was placed in the left main artery followed by wire down the LAD and diagonal artery. A 2.5 x 26 mm Edson frontier stent was placed in the proximal LAD extending into the second diagonal artery and then deployed at 18 cherry. An additional 2.75 x 12 mm noncompliant balloon was then deployed in the ostial proximal segment of the first diagonal artery at 22 cherry to post dilate. A wire was then placed back through the side struts and into the LAD proper. A 2.5 x 12 mm compliant balloon was then deployed at 15 cherry to open the struts going into the LAD. An additional 3 mm x 12 mm noncompliant balloon was then deployed at 24 and then 26 cherry in the proximal portion of the 2.5 mm stent within the LAD. Excellent angiograph results were obtained with ABBY-3 flow being present before and after the procedure. At the end of the procedure the apparatus was removed the sheath was removed and hemostasis was achieved using TR banding patient was transferred to the postop holding in stable condition ANGIOGRAPHIC RESULTS The left main artery Normal The left anterior descending artery Is proximally normal and then gives rise to a small first diagonal artery which has an ostial 50% stenosis followed by a larger second diagonal artery which has a proximal concentric 80 to 90% stenosis. The LAD then has 40 to 50% stenosis distal to the second diagonal artery followed by an additional 30% stenosis along a tortuous bend The circumflex artery Is nondominant and has proximal concentric 40% stenosis with a stent in the large first obtuse marginal artery which is widely patent free of in-stent restenosis with excellent proximal distal transitioning. The circumflex artery does give rise to a small ramus intermedius which is widely patent The right coronary artery Is dominant and has proximal 20% stenosis The CALLAHAN ventriculogram reveals Normal 65% The left ventricular end-diastolic pressure 10 mmHg IMPRESSION Coronary disease as described above Successful stenting of the proximal LAD extending into a large second diagonal artery severe disease reduced to 0% with 1 drug-eluting stent Angioplasty to the mid LAD Normal ejection fraction Normal LVEDP PLAN 1. Dual antiplatelet therapy 2. Cardiac rehabilitation 3. Avoidance of tobacco products 4. Risk factor modification 5. LDL less than 55 to be achieved with high intensity statin Electronically signed by : Hipolito Avalos MD 11/04/2024 11:48:05
[2024-11-04 08:44] LABS: Basophils # 0.1 K/mm3 (0-0.2); Basophils % 0.4 % (0.1-2.0); Eosinophils # 0.4 K/mm3 (0.0-0.4); Eosinophils % 3.3 % (0.1-12.0); Hematocrit 44.8 % (37.0-47.0); Lymphocytes # 3.3 K/mm3 (0.7-4.5); Lymphocytes % 28.3 % (10-50); Mean Corpuscular HGB Conc 33.5 g/dL (31.8-35.4); Mean Corpuscular Hemoglobin 31.4 pg (27.0-31.2); Mean Corpuscular Volume 93.7 fl (81-99); Mean Platelet Volume 10.6 fl (7.4-10.4); Monocytes % 8.9 % (1.7-9.3); Neutrophils # 6.8 K/mm3 (1.8-7.8); Neutrophils % 58.5 % (37.0-80.0); Platelet Count 215 K/mm3 (142-424); Red Blood Count 4.78 M/mm3 (4.20-5.40); Red Cell Distribution Width 13.5 % (11.5-17.5); White Blood Count 11.6 K/mm3 (4.8-10.8)
[2024-11-04 09:22] LABS: Chloride 105 mmol/L (98-107)
[2024-11-04 09:23] LABS: Potassium 3.4 mmoL/L (3.5-5.1); Sodium 139 mmol/L (136-145)
[2024-11-04 09:26] LABS: Anion Gap 10.4 mEq/L (5-15); Blood Urea Nitrogen 12 mg/dl (7-17); Calcium 8.7 mg/dl (8.4-10.2); Carbon Dioxide 27 mmol/L (22.0-30.0); Creatinine Clearance Estimated 130 mL/min (50-200); Estimated Glomerular Filt Rate 77 ml/min (>60); GFR (African American) 93 ML/MIN (>60); Glucose 103 mg/dl (74-100)
[2024-11-04] MEDS: HEPARIN 1,000 UNITS/500ML NS (CATH LAB) 3000 UNIT IV (09:56)
[2024-11-04] MEDS: diphenhydrAMINE 50MG/ML VIAL 50 MG IV (09:56)
[2024-11-04] MEDS: 0.9 % SODIUM CHLORIDE 500 ML 25 ML IV (10:05)
[2024-11-04] MEDS: FENTANYL 100MCG/2ML VIAL 50 MCG IV (10:16)
[2024-11-04] MEDS: MIDAZOLAM HCL 1MG/ML 5ML VIAL 1 MG IV (10:16)
[2024-11-04] MEDS: LIDOCAINE 1% 10ML MDV 20 ML IJ (10:20)
[2024-11-04] MEDS: HEPARIN 1,000 UNITS/ML 10ML VIAL (CATH LAB) 10000 UNIT IV (10:35)
[2024-11-04] MEDS: PRASUGREL 10MG TAB 10 MG PO (11:00)
[2024-11-04] MEDS: ASPIRIN 81MG CHEWABLE TABLET 81 MG PO (11:00)
[2024-11-04] MEDS: IOPAMIDOL-370 (76%);100ML BOTTLE 110 ML IV (12:28)
[2024-11-04 12:42] LABS: CATHL Activated Clotting Time 369 SEC (74-125)
[2024-11-04] MEDS: ONDANSETRON 4MG/2ML VIAL 4 MG IV (14:36)
== END 2024-11-04 15:05 | disposition home or self-care (01) ==
PROVIDERS: PCP Nurse Practitioner; Visit Provider Internal Medicine
DX: I25.118 Atherosclerotic heart disease of native coronary artery with other forms of angina pectoris (principal); I77.1 Stricture of artery; I10 Essential (primary) hypertension; F17.210 Nicotine dependence, cigarettes, uncomplicated; E78.5 Hyperlipidemia, unspecified; Z79.899 Other long term (current) drug therapy
CPT/HCPCS: 80048; 85025; 85347; 92928; 92929; 93458; 99152; 99153; C1725; C1760; C1769; C1874; C1894; C9600; C9601; J1200; J1644; J2250; J2405; J3010; Q9967

== ENCOUNTER 2024-11-11 09:58 | Outpatient (CLI) | payer OTHER, SELFPAY ==
[2024-11-11 10:59] LABS: Basophils # 0.1 K/mm3 (0-0.2); Basophils % 0.5 % (0.1-2.0); Eosinophils # 0.5 K/mm3 (0.0-0.4); Hematocrit 43.3 % (37.0-47.0); Hemoglobin 14.2 g/dL (12.2-16.2); Lymphocytes # 3.4 K/mm3 (0.7-4.5); Lymphocytes % 25.8 % (10-50); Mean Corpuscular HGB Conc 32.8 g/dL (31.8-35.4); Mean Corpuscular Hemoglobin 31.1 pg (27.0-31.2); Mean Platelet Volume 10.8 fl (7.4-10.4); Monocytes % 7.8 % (1.7-9.3); Neutrophils # 8.1 K/mm3 (1.8-7.8); Neutrophils % 61.5 % (37.0-80.0); Platelet Count 241 K/mm3 (142-424); Red Blood Count 4.56 M/mm3 (4.20-5.40); Red Cell Distribution Width 13.6 % (11.5-17.5); White Blood Count 13.2 K/mm3 (4.8-10.8)
[2024-11-11 11:17] LABS: Chloride 105 mmol/L (98-107); Potassium 3.8 mmoL/L (3.5-5.1); Sodium 138 mmol/L (136-145)
[2024-11-11 11:20] LABS: Anion Gap 13.8 mEq/L (5-15); Blood Urea Nitrogen 13 mg/dl (7-17); Calcium 9.1 mg/dl (8.4-10.2); Carbon Dioxide 23 mmol/L (22.0-30.0); Estimated Glomerular Filt Rate 77 ml/min (>60); GFR (African American) 93 ML/MIN (>60); Glucose 96 mg/dl (74-100)
== END 2024-11-11 23:59 | disposition home or self-care (01) ==
LOC: LAB 09:58
PROVIDERS: PCP Nurse Practitioner; Visit Provider Internal Medicine
DX: Z95.5 Presence of coronary angioplasty implant and graft (principal)
CPT/HCPCS: 36415; 80048; 85025

== ENCOUNTER 2024-11-18 12:43 | Outpatient (RCR) | payer OTHER, SELFPAY | END 2025-02-24 14:00 | disposition home or self-care (01) | LOC: CR 12:43 | PROVIDERS: Visit Provider Nurse Practitioner Family | DX: I25.118 Atherosclerotic heart disease of native coronary artery with other forms of angina pectoris (principal) ==

== ENCOUNTER 2024-11-25 13:13 | Emergency (ER) | payer OTHER, SELFPAY ==
[2024-11-25] VITALS (15 sets, daily range): BP systolic 103–135; BP diastolic 59–92; PULSE 57–74; RESP 15–22; TEMP 36.7; O2SAT 95–99; BMI 30.4
--- NOTE | 2024-11-25 13:17 | XR_ITS ---
FINAL REPORT CLINICAL HISTORY: CP, SOA COMPARISON: None FINDINGS: A single portable view of the chest was obtained. The heart size and pulmonary vascularity are within normal limits. The mediastinum is within normal limits. No acute pulmonary abnormality is identified. The bony thorax is intact. IMPRESSION: No active cardiopulmonary disease. Reviewed, Interpreted and Dictated by Villa Stoctkon MD Transcribed by Marissa Mariano Authenticated and [facility]
--- NOTE | 2024-11-25 13:17 | ECG_ITS ---
APPROVED REPORT Exam: Resting ECG HR:70 bpm ECG Measurements Heart Rate 70 AXES AZ 159 P 63 QRSd 80 QRS 64 QT 386 T 62 QTc 406 Conclusion SINUS RHYTHM MINIMAL ST DEPRESSION [0.025+ mV ST DEPRESSION] BORDERLINE ECG Electronically signed by : GRACIELA REYES, 11/28/2024 10:59:31
--- NOTE | 2024-11-25 13:18 | ED_ITS ---
Discharge Plan Disposition Patient Disposition: Home, Self-Care Condition: Good Prescriptions Prescriptions: No Action ibuprofen 800 mg tablet 800 mg PO ONCE aspirin 81 mg tablet,delayed release (DR/EC) 81 mg PO DAILY pantoprazole [Protonix] 40 mg tablet,delayed release (DR/EC) 40 mg PO DAILY Qty: 30 5RF amlodipine [Norvasc] 5 mg tablet 5 mg PO DAILY Qty: 30 2RF isosorbide mononitrate 60 mg tablet extended release 24 hr 60 mg PO DAILY Qty: 90 2RF ranolazine 1,000 mg tablet extended release 12 hr 1,000 mg PO BID Qty: 60 5RF furosemide [Lasix] 40 mg tablet 20 mg PO DAILY Qty: 30 5RF metoprolol succinate 50 mg tablet extended release 24 hr 75 mg PO BID 30 Days Qty: 90 5RF meclizine 25 mg tablet 25 mg PO TID PRN (Reason: dizziness) Qty: 90 0RF rosuvastatin [Crestor] 40 mg tablet 40 mg PO DAILY Qty: 30 5RF valsartan 320 mg tablet 320 mg PO DAILY Qty: 30 11RF spironolactone 25 mg tablet See Rx Instructions .ROUTE .COMPLEX Qty: 90 3RF Dose Instruction: TAKE 1 TABLET BY MOUTH DAILY Rx Instructions: TAKE 1 TABLET BY MOUTH DAILY prasugrel HCl [Effient] 10 mg Tablet 10 mg PO DAILY Qty: 30 6RF Referrals Follow up/Referrals: Valerie Khanna APRN [Primary Care Provider] - See instructions Toni Gimenez MD [Staff Physician] - See instructions (Dr. Avalos follow-up in clinic at 1 PM tomorrow for chest pain recent stent placement) Activity Restrictions/Add. Instructions Additional Instructions/Restrictions: Follow-up with cardiology tomorrow in clinic continue to take all medications as prescribed return to the emergency department any worsening chest pain or shortness of breath. Clinical Impressions Clinical Impression: Chest pain Print Language Print Language: Colombian Discharge ED Provider: Sg Flores General Adult HPI <[address] - Last Filed: 11/25/24 17:38> General Chief complaint: Chest Pain Stated complaint: CP Time Seen by Provider: 11/25/24 13:15 Mode of Arrival: Ambulatory Source of Information: Patient Limitations: No Limitations History of Present Illness HPI narrative: 44-year-old female presents to the emergency department with chest pain that is located centrally/substernally, with some occasional radiation down to the patient's left shoulder and left arm, wrapped it is a burning , currently a 4 out of 10 pain. Patient states the pain started yesterday morning while she was washing dishes , she denies any fever or chills, does admit to hot flashes , admits to shortness of breath, denies any abdominal pain nausea vomiting constipation diarrhea no urinary type symptomatology, no melena no hematemesis, no hemoptysis, maximal pain was an 8 out of 10 yesterday. Patient has other past coronary artery stent was placed in July 2024, on dual antiplatelet therapy with Plavix and aspirin daily, other past medical history consistent with hypertension, hyperlipidemia, current everyday smoker, GERD, Onset (ago): day(s) Related Data Home Medications ?Medication ?Instructions ?Recorded ?Confirmed aspirin 81 mg tablet,delayed 81 mg PO DAILY 05/29/24 11/26/24 release ibuprofen 800 mg tablet 800 mg PO ONCE 05/29/24 11/26/24 Previous Rx's ?Medication ?Instructions ?Recorded prasugrel HCl 10 mg tablet 10 mg PO DAILY #30 tabs 07/10/24 (Effient) ranolazine 1,000 mg 1,000 mg PO BID #60 tabs 08/12/24 tablet,extended release,12 hr rosuvastatin 40 mg tablet (Crestor) 40 mg PO DAILY #30 tabs 08/20/24 furosemide 40 mg tablet (Lasix) 20 mg (1/2 x 40 mg) PO DAILY #30 08/25/24 tabs amlodipine 5 mg tablet (Norvasc) 5 mg PO DAILY #30 tabs 09/02/24 pantoprazole 40 mg tablet,delayed 40 mg PO DAILY #30 tabs 09/02/24 release (Protonix) isosorbide mononitrate 60 mg 60 mg PO DAILY #90 tabs 10/08/24 tablet,extended release 24 hr valsartan 320 mg tablet 320 mg PO DAILY #30 tabs 10/20/24 spironolactone 25 mg tablet See Rx Instructions .Route 11/11/24 .COMPLEX #90 tabs meclizine 25 mg tablet 25 mg PO TID PRN dizziness #90 tabs 11/26/24 metoprolol succinate 50 mg 75 mg (1.5 x 50 mg) PO BID 30 days 11/26/24 tablet,extended release 24 hr #90 tabs Allergies Allergy/AdvReac Type Severity Reaction Status Date / Time Penicillins (PENICILLINS) Allergy Mild Unknown Verified 11/26/24 13:30 allergy reaction isosorbide AdvReac Intermediate Headache Verified 11/26/24 13:30 PFSH <[address] - Last Filed: 11/25/24 17:38> [facility] Disclaimer: The information contained in this section may have been updated after the patient was seen, as this information can be updated by other users. Medical History (Updated 11/26/24 @ 13:56 by Tripp Yang RN) Vertigo Near syncope Coronary artery disease SOB (shortness of breath) on exertion Typical angina Abnormal findings on diagnostic imaging of heart and coronary circulation Urinary tract infection Hyperlipidemia Hypertension Surgical History S/P cardiac cath Social History Smoking Status: Current every day smoker tobacco type: cigarettes packs per day: 1 alcohol intake: never current occupational status: other Travel in the last 8 weeks: None Other Medical History Have you received the Flu Vaccine for this season: No Have you received the Pneumonia Vaccine: No <[address] - Last Filed: 11/25/24 17:38> ROS Obtained: Yes All systems reviewed & no additional complaints except as documented Physical Exam <[address] - Last Filed: 11/25/24 17:38> General General appearance: alert and in no apparent distress Head Head exam: atraumatic and normocephalic Eye Eye exam: Present normal appearance, PERRL and EOMI Neck Neck exam: Present full ROM; Absent meningismus Chest Chest inspection: Present normal inspection Respiratory Respiratory exam: Absent respiratory distress, wheezes, stridor, accessory muscle use or prolonged expiratory phase Cardiovascular Cardiovascular exam: Present normal rhythm and other (Pulses equal and symmetric in bilateral upper and lower extremities) Abdominal Exam Abdominal exam: Absent distention, tenderness, guarding, rebound or rigidity Extremities Exam Extremities exam: Absent edema Neurological Exam Neurological exam: Present alert Psychiatric Psychiatric exam: Present normal affect Skin Skin exam: Present warm and dry Medical Decision Making <[address] - Last Filed: 11/25/24 17:38> Medical Records Medical records reviewed: Yes I reviewed the patient's medical records. Screening: Per USPSTF and CDC recommendations, given the prevalence of disease in our region, it is our hospital?s policy to screen for HIV and viral Hepatitis for all patients aged 18 and over and those with ongoing risk factors. [place] Inquiry Pt receiving controlled substance: No [place] was queried for this patient: No Vital Signs: 11/25/24 13:20 11/25/24 14:05 11/25/24 14:30 Temperature 98.1 F Temperature Source Oral Pulse Rate 58 L 60 Pulse Rate [Left] 74 Respiratory Rate 18 16 Blood Pressure 103/59 L 119/69 Blood Pressure [Right Arm] 120/80 Blood Pressure Mean 80 Blood Pressure Mean [Right Arm] 93 Blood Pressure Source [Right Arm] Automatic Cuff Blood Pressure Position [Right Arm] Sitting 02 Sat by Pulse Oximetry 99 96 Oxygen Delivery Method Room Air Room Air 11/25/24 15:00 11/25/24 15:01 11/25/24 15:16 Temperature Temperature Source Pulse Rate 64 62 62 Pulse Rate [Left] Respiratory Rate 21 21 18 Blood Pressure 131/79 116/67 122/79 Blood Pressure [Right Arm] Blood Pressure Mean Blood Pressure Mean [Right Arm] Blood Pressure Source [Right Arm] Blood Pressure Position [Right Arm] 02 Sat by Pulse Oximetry 95 95 96 Oxygen Delivery Method Room Air Room Air Room Air 11/25/24 15:30 11/25/24 15:45 11/25/24 16:01 Temperature Temperature Source Pulse Rate 60 63 62 Pulse Rate [Left] Respiratory Rate 15 15 16 Blood Pressure 134/78 127/79 122/78 Blood Pressure [Right Arm] Blood Pressure Mean Blood Pressure Mean [Right Arm] Blood Pressure Source [Right Arm] Blood Pressure Position [Right Arm] 02 Sat by Pulse Oximetry 97 98 95 Oxygen Delivery Method Room Air Room Air Room Air 11/25/24 16:30 11/25/24 16:45 11/25/24 17:00 Temperature Temperature Source Pulse Rate 61 60 59 L Pulse Rate [Left] Respiratory Rate 21 22 Blood Pressure 118/92 H 125/88 122/82 Blood Pressure [Right Arm] Blood Pressure Mean Blood Pressure Mean [Right Arm] Blood Pressure Source [Right Arm] Blood Pressure Position [Right Arm] 02 Sat by Pulse Oximetry 97 96 97 Oxygen Delivery Method Room Air Room Air Room Air 11/25/24 17:15 11/25/24 17:30 11/25/24 17:48 Temperature 98.1 F Temperature Source Pulse Rate 58 L 57 L 61 Pulse Rate [Left] Respiratory Rate 19 17 16 Blood Pressure 135/82 122/83 132/78 Blood Pressure [Right Arm] Blood Pressure Mean 106 104 Blood Pressure Mean [Right Arm] Blood Pressure Source [Right Arm] Blood Pressure Position [Right Arm] 02 Sat by Pulse Oximetry 97 99 Oxygen Delivery Method Room Air Room Air Lab Data Lab results reviewed: Yes I reviewed the patient's lab results. Lab Results 11/25/24 13:41: WBC 13.3 H, RBC 4.63, Hgb 14.4, Hct 43.3, MCV 93.5, MCH 31.1, MCHC 33.3, RDW 13.3, Plt Count 257, MPV 10.5 H, Neut % (Auto) 58.8, Lymph % (Auto) 27.2, Dawes % (Auto) 9.3, Eos % (Auto) 4.0, Baso % (Auto) 0.3, Neut # (Auto) 7.8, Lymph # (Auto) 3.6, Dawes # (Auto) 1.2 H, Eos # (Auto) 0.5 H, Baso # (Auto) 0.0, PT 10.5, INR 0.93, D-Dimer 0.41, Sodium 135 L, Potassium 3.9, Chloride 107, Carbon Dioxide 20 L, Anion Gap 11.9, BUN 14, Creatinine 0.90, Estimated Creat Clear 112, Estimated GFR 67, Est GFR ( Amer) 82, Glucose 104 H, Calcium 8.9, Magnesium 1.9, Total Bilirubin 0.3, AST 51 H, ALT 22, Alkaline Phosphatase 74, Total Creatine Kinase 65, Troponin I < 0.01, Total Protein 7.0, Albumin 4.3, Globulin 2.7, Albumin/Globulin Ratio 1.6, Lipase 81, HCV Ab BRODIE w/Rflx PCR Qn Negative, HIV Ag/Ab Combo Qual Negative 11/25/24 16:16: Troponin I < 0.01 11/25/24 13:41 11/25/24 13:41 Orders (Tests/Meds): ED MEDICATIONS Discontinued Medications Generic Name Dose Route Start Last Admin Trade Name Freq PRN Reason Stop Dose Admin Morphine Sulfate 2 mg 11/25/24 16:00 11/25/24 16:24 Morphine 2mg/Ml Syringe IV 11/25/24 16:01 2 mg ONCE ONE Administration Ondansetron HCl 4 mg 11/25/24 16:01 11/25/24 16:24 Ondansetron 4mg/2ml Vial IV 11/25/24 16:02 4 mg ONCE ONE Administration ORDERS Category Date Time Status XR chest portable Stat Exams 11/25/24 13:17 Completed CK [Creatine Kinase] Stat Lab 11/25/24 13:41 Completed Complete Blood Count Auto Diff Stat Lab 11/25/24 13:41 Completed Comprehensive Metabolic Panel Stat Lab 11/25/24 13:41 Completed D-Dimer Stat Lab 11/25/24 13:41 Completed HIV Combo Stat Lab 11/25/24 13:41 Completed Hepatitis C Ab Qual. W/ RFX Stat Lab 11/25/24 13:41 Completed Lipase Stat Lab 11/25/24 13:41 Completed Magnesium Stat Lab 11/25/24 13:41 Completed PT INR [Prothrombin Time INR] Stat Lab 11/25/24 13:41 Completed Troponin I Q3H Lab 11/25/24 16:16 Completed Troponin I Stat Lab 11/25/24 13:41 Completed HEART Score History (anamnesis): Slightly suspicious ECG: Normal Age: 45-65 years Risk factors: 3 or more risk factors Troponin: </= normal limit HEART Score: 3 Medical Decision Narrative: 44-year-old female presents to the emergency department with chest pain, differential diagnosis to include but not limited to, ACS, cardiac arrhythmia, electrolyte disturbance, GERD, gastritis, pneumothorax, PE, pneumonia, costochondritis, anxiety type reaction, panic attack. I discussed patient case with attending physician Dr. Flores. Obtain basic laboratory studies, troponin and proBNP, EKG, chest x-ray, D-dimer, coagulation studies, for further evaluation/characterization, if 2 mg IV morphine for pain, and 4 mg IV Zofran for nausea. I along with the attending physician reviewed the patient's EKG at 1318, NSR at 70 bpm OH interval within normals, QT interval within normal limits, there is some minimal ST depression present in several leads however no contiguous lead, no ST elevations concerning for STEMI at this time. CBC is noted for minimal leukocytosis at 13.3, was unremarkable CBC. Coagulation studies within normal limits. D-dimer 0.41, negative for VTE or PE Reviewed the patient's chest x-ray along the corresponding radiologic report no active cardiopulmonary disease. Second troponin is within normal limits. Reexamination of the patient at approximately 5:25 PM, patient is currently chest pain-free and, 0 out of 10 chest pain. Discussed this patient's case with Dr. Avalos the on-call learning support specialist at 5:29 PM he recommends follow-up in the cardiology clinic tomorrow, if 2 troponins and EKGs are negative she is cleared to be discharged home. Will continue all her medications as prescribed. Patient voiced understanding agree with current treatment plan/discharge plan. Patient is otherwise remained hemodynamically stable without her time in the emergency department is currently chest pain-free upon discharge. Heart score is 3. <Sg Flores MD - Last Filed: 11/27/24 18:04> Vital Signs: 11/25/24 13:20 11/25/24 14:05 11/25/24 14:30 Temperature 98.1 F Temperature Source Oral Pulse Rate 58 L 60 Pulse Rate [Left] 74 Respiratory Rate 18 16 Blood Pressure 103/59 L 119/69 Blood Pressure [Right Arm] 120/80 Blood Pressure Mean 80 Blood Pressure Mean [Right Arm] 93 Blood Pressure Source [Right Arm] Automatic Cuff Blood Pressure Position [Right Arm] Sitting 02 Sat by Pulse Oximetry 99 96 Oxygen Delivery Method Room Air Room Air 11/25/24 15:00 11/25/24 15:01 11/25/24 15:16 Temperature Temperature Source Pulse Rate 64 62 62 Pulse Rate [Left] Respiratory Rate 21 21 18 Blood Pressure 131/79 116/67 122/79 Blood Pressure [Right Arm] Blood Pressure Mean Blood Pressure Mean [Right Arm] Blood Pressure Source [Right Arm] Blood Pressure Position [Right Arm] 02 Sat by Pulse Oximetry 95 95 96 Oxygen Delivery Method Room Air Room Air Room Air 11/25/24 15:30 11/25/24 15:45 11/25/24 16:01 Temperature Temperature Source Pulse Rate 60 63 62 Pulse Rate [Left] Respiratory Rate 15 15 16 Blood Pressure 134/78 127/79 122/78 Blood Pressure [Right Arm] Blood Pressure Mean Blood Pressure Mean [Right Arm] Blood Pressure Source [Right Arm] Blood Pressure Position [Right Arm] 02 Sat by Pulse Oximetry 97 98 95 Oxygen Delivery Method Room Air Room Air Room Air 11/25/24 16:30 11/25/24 16:45 11/25/24 17:00 Temperature Temperature Source Pulse Rate 61 60 59 L Pulse Rate [Left] Respiratory Rate 21 22 Blood Pressure 118/92 H 125/88 122/82 Blood Pressure [Right Arm] Blood Pressure Mean Blood Pressure Mean [Right Arm] Blood Pressure Source [Right Arm] Blood Pressure Position [Right Arm] 02 Sat by Pulse Oximetry 97 96 97 Oxygen Delivery Method Room Air Room Air Room Air 11/25/24 17:15 11/25/24 17:30 11/25/24 17:48 Temperature 98.1 F Temperature Source Pulse Rate 58 L 57 L 61 Pulse Rate [Left] Respiratory Rate 19 17 16 Blood Pressure 135/82 122/83 132/78 Blood Pressure [Right Arm] Blood Pressure Mean 106 104 Blood Pressure Mean [Right Arm] Blood Pressure Source [Right Arm] Blood Pressure Position [Right Arm] 02 Sat by Pulse Oximetry 97 99 Oxygen Delivery Method Room Air Room Air Lab Data Lab Results 11/25/24 13:41: WBC 13.3 H, RBC 4.63, Hgb 14.4, Hct 43.3, MCV 93.5, MCH 31.1, MCHC 33.3, RDW 13.3, Plt Count 257, MPV 10.5 H, Neut % (Auto) 58.8, Lymph % (Auto) 27.2, Dawes % (Auto) 9.3, Eos % (Auto) 4.0, Baso % (Auto) 0.3, Neut # (Auto) 7.8, Lymph # (Auto) 3.6, Dawes # (Auto) 1.2 H, Eos # (Auto) 0.5 H, Baso # (Auto) 0.0, PT 10.5, INR 0.93, D-Dimer 0.41, Sodium 135 L, Potassium 3.9, Chloride 107, Carbon Dioxide 20 L, Anion Gap 11.9, BUN 14, Creatinine 0.90, Estimated Creat Clear 112, Estimated GFR 67, Est GFR ( Amer) 82, Glucose 104 H, Calcium 8.9, Magnesium 1.9, Total Bilirubin 0.3, AST 51 H, ALT 22, Alkaline Phosphatase 74, Total Creatine Kinase 65, Troponin I < 0.01, Total Protein 7.0, Albumin 4.3, Globulin 2.7, Albumin/Globulin Ratio 1.6, Lipase 81, HCV Ab BRODIE w/Rflx PCR Qn Negative, HIV Ag/Ab Combo Qual Negative 11/25/24 16:16: Troponin I < 0.01 Orders (Tests/Meds): ED MEDICATIONS Discontinued Medications Generic Name Dose Route Start Last Admin Trade Name Freq PRN Reason Stop Dose Admin Morphine Sulfate 2 mg 11/25/24 16:00 11/25/24 16:24 Morphine 2mg/Ml Syringe IV 11/25/24 16:01 2 mg ONCE ONE Administration Ondansetron HCl 4 mg 11/25/24 16:01 11/25/24 16:24 Ondansetron 4mg/2ml Vial IV 11/25/24 16:02 4 mg ONCE ONE Administration ORDERS Category Date Time Status XR chest portable Stat Exams 11/25/24 13:17 Completed CK [Creatine Kinase] Stat Lab 11/25/24 13:41 Completed Complete Blood Count Auto Diff Stat Lab 11/25/24 13:41 Completed Comprehensive Metabolic Panel Stat Lab 11/25/24 13:41 Completed D-Dimer Stat Lab 11/25/24 13:41 Completed HIV Combo Stat Lab 11/25/24 13:41 Completed Hepatitis C Ab Qual. W/ RFX Stat Lab 11/25/24 13:41 Completed Lipase Stat Lab 11/25/24 13:41 Completed Magnesium Stat Lab 11/25/24 13:41 Completed PT INR [Prothrombin Time INR] Stat Lab 11/25/24 13:41 Completed Troponin I Q3H Lab 11/25/24 16:16 Completed Troponin I Stat Lab 11/25/24 13:41 Completed ECG Data Tracing #1: I reviewed this ECG and interpreted as documented below: (Sinus rhythm [address] depression lateral and inferior leads. No reciprocal elevations. OH 159, QRS 80, QTc 406) HEART Score HEART Score: 3 Medical Decision Narrative: 44-year-old female presents to the emergency department with chest pain, differential diagnosis to include but not limited to, ACS, cardiac arrhythmia, electrolyte disturbance, GERD, gastritis, pneumothorax, PE, pneumonia, costochondritis, anxiety type reaction, panic attack. I discussed patient case with attending physician Dr. Flores. Obtain basic laboratory studies, troponin and proBNP, EKG, chest x-ray, D-dimer, coagulation studies, for further evaluation/characterization, if 2 mg IV morphine for pain, and 4 mg IV Zofran for nausea. I along with the attending physician reviewed the patient's EKG at 1318, NSR at 70 bpm OH interval within normals, QT interval within normal limits, there is some minimal ST depression present in several leads however no contiguous lead, no ST elevations concerning for STEMI at this time. CBC is noted for minimal leukocytosis at 13.3, was unremarkable CBC. Coagulation studies within normal limits. D-dimer 0.41, negative for VTE or PE Reviewed the patient's chest x-ray along the corresponding radiologic report no active cardiopulmonary disease. Second troponin is within normal limits. Reexamination of the patient at approximately 5:25 PM, patient is currently chest pain-free and, 0 out of 10 chest pain. Discussed this patient's case with Dr. Avalos the on-call learning support specialist at 5:29 PM he recommends follow-up in the cardiology clinic tomorrow, if 2 troponins and EKGs are negative she is cleared to be discharged home. Will continue all her medications as prescribed. Patient voiced understanding agree with current treatment plan/discharge plan. Patient is otherwise remained hemodynamically stable without her time in the emergency department is currently chest pain-free upon discharge. Heart score is 3. I was consulted by the DANIELLE, and we discussed the complexity of the problems being addressed. I approved the treatment and management plan for this patient's care in the emergency department, thus performing a substantive portion of the medical decision making. Sukhwinder Gutierrez MD I was consulted by the DANIELLE, and we discussed the complexity of the problems being addressed. I approved the treatment and management plan for this patient's care in the Emergency Department, thus performing a substantive portion of the medical decision making. Sg Flores MD <Sukhwinder Gutierrez MD - Last Filed: 11/25/24 23:33> Vital Signs: 11/25/24 13:20 11/25/24 14:05 11/25/24 14:30 Temperature 98.1 F Temperature Source Oral Pulse Rate 58 L 60 Pulse Rate [Left] 74 Respiratory Rate 18 16 Blood Pressure 103/59 L 119/69 Blood Pressure [Right Arm] 120/80 Blood Pressure Mean 80 Blood Pressure Mean [Right Arm] 93 Blood Pressure Source [Right Arm] Automatic Cuff Blood Pressure Position [Right Arm] Sitting 02 Sat by Pulse Oximetry 99 96 Oxygen Delivery Method Room Air Room Air 11/25/24 15:00 11/25/24 15:01 11/25/24 15:16 Temperature Temperature Source Pulse Rate 64 62 62 Pulse Rate [Left] Respiratory Rate 21 21 18 Blood Pressure 131/79 116/67 122/79 Blood Pressure [Right Arm] Blood Pressure Mean Blood Pressure Mean [Right Arm] Blood Pressure Source [Right Arm] Blood Pressure Position [Right Arm] 02 Sat by Pulse Oximetry 95 95 96 Oxygen Delivery Method Room Air Room Air Room Air 11/25/24 15:30 11/25/24 15:45 11/25/24 16:01 Temperature Temperature Source Pulse Rate 60 63 62 Pulse Rate [Left] Respiratory Rate 15 15 16 Blood Pressure 134/78 127/79 122/78 Blood Pressure [Right Arm] Blood Pressure Mean Blood Pressure Mean [Right Arm] Blood Pressure Source [Right Arm] Blood Pressure Position [Right Arm] 02 Sat by Pulse Oximetry 97 98 95 Oxygen Delivery Method Room Air Room Air Room Air 11/25/24 16:30 11/25/24 16:45 11/25/24 17:00 Temperature Temperature Source Pulse Rate 61 60 59 L Pulse Rate [Left] Respiratory Rate 21 22 Blood Pressure 118/92 H 125/88 122/82 Blood Pressure [Right Arm] Blood Pressure Mean Blood Pressure Mean [Right Arm] Blood Pressure Source [Right Arm] Blood Pressure Position [Right Arm] 02 Sat by Pulse Oximetry 97 96 97 Oxygen Delivery Method Room Air Room Air Room Air 11/25/24 17:15 11/25/24 17:30 11/25/24 17:48 Temperature 98.1 F Temperature Source Pulse Rate 58 L 57 L 61 Pulse Rate [Left] Respiratory Rate 19 17 16 Blood Pressure 135/82 122/83 132/78 Blood Pressure [Right Arm] Blood Pressure Mean 106 104 Blood Pressure Mean [Right Arm] Blood Pressure Source [Right Arm] Blood Pressure Position [Right Arm] 02 Sat by Pulse Oximetry 97 99 Oxygen Delivery Method Room Air Room Air Lab Data Lab Results 11/25/24 13:41: WBC 13.3 H, RBC 4.63, Hgb 14.4, Hct 43.3, MCV 93.5, MCH 31.1, MCHC 33.3, RDW 13.3, Plt Count 257, MPV 10.5 H, Neut % (Auto) 58.8, Lymph % (Auto) 27.2, Dawes % (Auto) 9.3, Eos % (Auto) 4.0, Baso % (Auto) 0.3, Neut # (Auto) 7.8, Lymph # (Auto) 3.6, Dawes # (Auto) 1.2 H, Eos # (Auto) 0.5 H, Baso # (Auto) 0.0, PT 10.5, INR 0.93, D-Dimer 0.41, Sodium 135 L, Potassium 3.9, Chloride 107, Carbon Dioxide 20 L, Anion Gap 11.9, BUN 14, Creatinine 0.90, Estimated Creat Clear 112, Estimated GFR 67, Est GFR ( Amer) 82, Glucose 104 H, Calcium 8.9, Magnesium 1.9, Total Bilirubin 0.3, AST 51 H, ALT 22, Alkaline Phosphatase 74, Total Creatine Kinase 65, Troponin I < 0.01, Total Protein 7.0, Albumin 4.3, Globulin 2.7, Albumin/Globulin Ratio 1.6, Lipase 81, HCV Ab BRODIE w/Rflx PCR Qn Negative, HIV Ag/Ab Combo Qual Negative 11/25/24 16:16: Troponin I < 0.01 Orders (Tests/Meds): ED MEDICATIONS Discontinued Medications Generic Name Dose Route Start Last Admin Trade Name Freq PRN Reason Stop Dose Admin Morphine Sulfate 2 mg 11/25/24 16:00 11/25/24 16:24 Morphine 2mg/Ml Syringe IV 11/25/24 16:01 2 mg ONCE ONE Administration Ondansetron HCl 4 mg 11/25/24 16:01 11/25/24 16:24 Ondansetron 4mg/2ml Vial IV 11/25/24 16:02 4 mg ONCE ONE Administration ORDERS Category Date Time Status XR chest portable Stat Exams 11/25/24 13:17 Completed CK [Creatine Kinase] Stat Lab 11/25/24 13:41 Completed Complete Blood Count Auto Diff Stat Lab 11/25/24 13:41 Completed Comprehensive Metabolic Panel Stat Lab 11/25/24 13:41 Completed D-Dimer Stat Lab 11/25/24 13:41 Completed HIV Combo Stat Lab 11/25/24 13:41 Completed Hepatitis C Ab Qual. W/ RFX Stat Lab 11/25/24 13:41 Completed Lipase Stat Lab 11/25/24 13:41 Completed Magnesium Stat Lab 11/25/24 13:41 Completed PT INR [Prothrombin Time INR] Stat Lab 11/25/24 13:41 Completed Troponin I Q3H Lab 11/25/24 16:16 Completed Troponin I Stat Lab 11/25/24 13:41 Completed HEART Score HEART Score: 3 Medical Decision Narrative: 44-year-old female presents to the emergency department with chest pain, differential diagnosis to include but not limited to, ACS, cardiac arrhythmia, electrolyte disturbance, GERD, gastritis, pneumothorax, PE, pneumonia, costochondritis, anxiety type reaction, panic attack. I discussed patient case with attending physician Dr. Flores. Obtain basic laboratory studies, troponin and proBNP, EKG, chest x-ray, D-dimer, coagulation studies, for further evaluation/characterization, if 2 mg IV morphine for pain, and 4 mg IV Zofran for nausea. I along with the attending physician reviewed the patient's EKG at 1318, NSR at 70 bpm OH interval within normals, QT interval within normal limits, there is some minimal ST depression present in several leads however no contiguous lead, no ST elevations concerning for STEMI at this time. CBC is noted for minimal leukocytosis at 13.3, was unremarkable CBC. Coagulation studies within normal limits. D-dimer 0.41, negative for VTE or PE Reviewed the patient's chest x-ray along the corresponding radiologic report no active cardiopulmonary disease. Second troponin is within normal limits. Reexamination of the patient at approximately 5:25 PM, patient is currently chest pain-free and, 0 out of 10 chest pain. Discussed this patient's case with Dr. Avalos the on-call learning support specialist at 5:29 PM he recommends follow-up in the cardiology clinic tomorrow, if 2 troponins and EKGs are negative she is cleared to be discharged home. Will continue all her medications as prescribed. Patient voiced understanding agree with current treatment plan/discharge plan. Patient is otherwise remained hemodynamically stable without her time in the emergency department is currently chest pain-free upon discharge. Heart score is 3. I was consulted by the DANIELLE, and we discussed the complexity of the problems being addressed. I approved the treatment and management plan for this patient's care in the emergency department, thus performing a substantive portion of the medical decision making. Sukhwinder Gutierrez MD Critical Care <[address] - Last Filed: 03/11/25 17:38> Critical Care Time Critical Care Time: No
[2024-11-25 13:54] LABS: Basophils % 0.3 % (0.1-2.0); Eosinophils # 0.5 K/mm3 (0.0-0.4); Hematocrit 43.3 % (37.0-47.0); Hemoglobin 14.4 g/dL (12.2-16.2); Lymphocytes # 3.6 K/mm3 (0.7-4.5); Lymphocytes % 27.2 % (10-50); Mean Corpuscular HGB Conc 33.3 g/dL (31.8-35.4); Mean Corpuscular Hemoglobin 31.1 pg (27.0-31.2); Mean Corpuscular Volume 93.5 fl (81-99); Mean Platelet Volume 10.5 fl (7.4-10.4); Monocytes # 1.2 K/mm3 (0.1-1.0); Monocytes % 9.3 % (1.7-9.3); Neutrophils # 7.8 K/mm3 (1.8-7.8); Neutrophils % 58.8 % (37.0-80.0); Platelet Count 257 K/mm3 (142-424); Red Blood Count 4.63 M/mm3 (4.20-5.40); Red Cell Distribution Width 13.3 % (11.5-17.5); White Blood Count 13.3 K/mm3 (4.8-10.8)
[2024-11-25 14:01] LABS: INR 0.93 (0.9-1.1); Prothrombin Time 10.5 seconds (10.1-12.5)
[2024-11-25 14:18] LABS: D-Dimer 0.41 ug/mL (0.0-0.5)
--- NOTE | 2024-11-25 15:14 | PC.NURSE ---
Called lab to check on CMP/Trop labs that have yet to result; lab reports they are just now placing blood on analyzer. Fadi Paula RN and SIXTO Schmidt aware of this issue.
[2024-11-25 15:23] LABS: Albumin Level 4.3 g/dl (3.5-5.0); Chloride 107 mmol/L (98-107); Potassium 3.9 mmoL/L (3.5-5.1); Sodium 135 mmol/L (136-145)
[2024-11-25 15:26] LABS: Alanine Aminotransferase 22 U/L (12-78); Albumin/Globulin Ratio 1.6 (1.1-1.8); Alkaline Phosphatase 74 U/L (38-126); Anion Gap 11.9 mEq/L (5-15); Aspartate Amino Transferase 51 U/L (14-36); Bilirubin,Total 0.3 mg/dl (0.2-1.3); Blood Urea Nitrogen 14 mg/dl (7-17); Calcium 8.9 mg/dl (8.4-10.2); Carbon Dioxide 20 mmol/L (22.0-30.0); Creatine Kinase 65 U/L (30-135); Creatinine Clearance Estimated 112 mL/min (50-200); Estimated Glomerular Filt Rate 67 ml/min (>60); GFR (African American) 82 ML/MIN (>60); Globulin 2.7 g/dL (1.3-3.2); Glucose 104 mg/dl (74-100); Lipase 81 U/L (23-300)
[2024-11-25 15:27] LABS: Magnesium 1.9 mg/dl (1.6-2.3)
[2024-11-25 15:43] LABS: Troponin I < 0.01 ng/ml (0.00-0.034)
--- NOTE | 2024-11-25 16:18 | PC.NURSE ---
2nd trop sent to lab
[2024-11-25] MEDS: ONDANSETRON 4MG/2ML VIAL 4 MG IV (16:24)
[2024-11-25] MEDS: MORPHINE 2MG/ML SYRINGE 2 MG IV (16:24)
[2024-11-25 17:17] LABS: Troponin I < 0.01 ng/ml (0.00-0.034)
[2024-11-25 20:12] LABS: HIV Combo NEGATIVE (Negative)
[2024-11-25 20:20] LABS: Hepatitis C Ab Qual. W/ RFX NEGATIVE (Negative)
== END 2024-11-25 17:49 | disposition home or self-care (01) ==
PROVIDERS: Physician Assistant; Emergency Provider Emergency Medicine; PCP Nurse Practitioner
DX: R07.9 Chest pain, unspecified (principal); R06.02 Shortness of breath; R23.2 Flushing; F17.210 Nicotine dependence, cigarettes, uncomplicated
CPT/HCPCS: 71045; 80053; 82550; 83690; 83735; 84484; 85025; 85378; 85610; 86803; 87389; 93005; 96374; 96375; 99284; J2270; J2405

== ENCOUNTER 2024-12-04 07:31 | Outpatient (CLI) | payer OTHER, SELFPAY ==
--- NOTE | 2024-12-04 | CA_ITS ---
APPROVED REPORT Exam: Pharmacologic Technologist: Mary Talley Ht: 5 ft 8 in Wt: 206 lbs BSA: 2.07 m2 HR: 61 bpm BP: 151/82 mmHg Rhythm: SR Medical History Cardiac Risk Factors: HTN, Hyperlipidemia, Smoking Stress Test Details HR Resting HR: 61 bpm Max Heart Rate (APMHR): 174 bpm Max HR Achieved: 98 bpm Target HR (85% APMHR): 148 bpm % of APMHR: 56 Recovery HR: 84 bpm BP Resting BP: 151.0/82.0 mmHg Max BP: 141.0/85.0 mmHg Recovery BP: 121.0/76.0 mmHg ECG Resting ECG: SR Stress ECG: No significant ST changes Stress ECG Conclusion During agustin protocol pt experinced SOA, nausea, dizziness, and abdominal pain. ST changes: < 0.[address] depression Ectopy: None Conclusion: Lexiscan administration demonstrating no evidence of significant ST changes Electronically signed by : Chelsea Gimenez MD 12/07/2024 21:24:00
--- NOTE | 2024-12-04 07:34 | NM_ITS ---
APPROVED REPORT Exam: Nuclear Stress Test Indication: chest pain..soa..palpitations..fatigue Patient Location: Outpatient Stress Tech: Mary Talley [place] Tech:Nancy Sanchez YANN RT(R)(N) Ht: 5 ft 8 in Wt: 200 lbs Bra Size: 38c HR: 70 bpm BP: 156/82 mmHg BSA: 2.04 m2 TID: 1.44 BMI: 30.4 History: chest pain..soa..palpitations..fatigue Procedure: Patient received 0.4 mg of intravenous Lexiscan, resting heart rate 70 bpm, resting blood pressure 156/82 mmHg, with Lexiscan maximum heart rate achieved was 94 bpm which is 85 % of the maximum predicted heart rate and blood pressure was 145/81 mmHg. With Lexiscan, patient denied any complaint of chest pain. Cardiac Stress and Resting SPECT Images: Cardiac Stress and Resting SPECT images were obtained using technetium 99m Myoview 30.6 mCi stress and 10.04 mCi at rest. Resting and stress imaging in supine and prone positions demonstrate no evidence of fixed or reversible perfusion defects. There is increase in transit ischemic dilatation ratio (TID 1.44), suggestive of possible multivessel disease or balanced ischemia. Gated imaging demonstrates normal global and regional LV systolic function. LVEF is calculated at 59%. Conclusion: No evidence of fixed or reversible perfusion defects. There is increase in transit ischemic dilatation ratio (TID 1.44), suggestive of possible multivessel disease or balanced ischemia. Gated imaging demonstrates normal global and regional LV systolic function. LVEF is calculated at 59%. In the setting of young age, presence of TID on nuclear stress testing with otherwise normal LV systolic function, further evaluation noninvasively with CCTA suggested prior to proceeding with invasive coronary angiography, if clinically feasible and indicated. Electronically signed by : Chelsea Gimenez MD 12/07/2024 21:13:07
--- NOTE | 2024-12-04 07:42 | CA_ITS ---
APPROVED REPORT EXAM: Comprehensive 2D, Doppler, and color-flow Echocardiogram Butcher Scullion: Lorena French RDCS Ht: 5 ft 8 in Wt: 206lbs BSA: 2.07 BP: 121/75 mmHg Indications: CP,SOA M-Mode Dimensions RVDd 1.98 cm (0.9-2.6) LA Diam 3.47 cm (1.9-4.0) LVDd 5.81 cm (3.5-5.7) LVDs 4.00 cm (3.5-5.7) IVSd 0.77 cm (0.6-1.1) PWd 1.05 cm (0.6-1.1) EF (Teich) 58.10% FS 31.20% EDV (Teich) 167.20 mL TAPSE 2.06 (<1.7) ESV (Teich) 70.00 mL LV Diastology E Decel Time 167 (160-240 msec) E/A Ratio 1.5 Mitral Valve MV E Max Peter. 74.0 (40-130 cm/s) MV A Velocity 48.0 (40-130 cm/s) E/A Ratio 1.54 MV PHT 49.0 ms Left Ventricle The left ventricle is normal size. The left ventricular systolic function is normal. The left ventricular ejection fraction is within the normal range. There is normal left ventricular wall thickness. There is normal LV segmental wall motion. The left ventricular diastolic function is normal. LVEF is 55%. Right Ventricle The right ventricle is normal size. The right ventricular systolic function is normal. Atria The left atrium size is normal. The right atrium size is normal. There is no Doppler evidence of interatrial shunt. Aortic Valve Aortic valve opens well. There is no aortic valvular stenosis. No aortic regurgitation is present. Mitral Valve The mitral valve is normal in structure. No evidence of mitral valve stenosis. Trace mitral regurgitation. Tricuspid Valve Tricuspid valve is grossly normal in structure and function. Trace tricuspid regurgitation. There is insufficient TR jet to estimate RVSP. Pulmonic Valve The pulmonary valve is normal in structure. Trace pulmonic regurgitation. Great Vessels The aortic root is normal in size. IVC is normal in size and collapses >50% with inspiration. Pericardium There is no pericardial effusion. Other Information Study Quality: Adequate Conclusion Normal biventricular systolic function. No significant valvular stenosis or regurgitation. Electronically signed by : Chelsea Gimenez MD 12/09/2024 01:15:55
[2024-12-04] MEDS: REGADENOSON 0.4MG/5ML SYRINGE 0.4 MG IV (09:27)
[2024-12-04] MEDS: SODIUM CHLORIDE 0.9% 10ML SYR (RAD ONLY) 10 ML IV ×2 (09:28)
[2024-12-04] MEDS: ISOTOPE MYOVIEW (PER STUDY) 1 DOSE IV (09:28)
== END 2024-12-04 23:59 | disposition home or self-care (01) ==
LOC: RAD 07:32
PROVIDERS: PCP Nurse Practitioner; Visit Provider Internal Medicine
DX: I25.118 Atherosclerotic heart disease of native coronary artery with other forms of angina pectoris (principal); R06.02 Shortness of breath; R94.31 Abnormal electrocardiogram [ECG] [EKG]
CPT/HCPCS: 78452; 93017; 93018; 93306; A9502; J2785

== ENCOUNTER 2024-12-17 08:33 | Day surgery (SDC) | payer OTHER, SELFPAY ==
[2024-12-17] VITALS (11 sets, daily range): BP systolic 115–172; BP diastolic 70–97; PULSE 62–88; RESP 16–20; O2SAT 92–97; BMI 32.2
--- NOTE | 2024-12-17 07:13 | IR_ITS ---
APPROVED REPORT Patient Location: Outpatient PROCEDURES Right radial arterial access Right retrograde radial artery angiogram left heart catheterization Left ventriculogram Selective coronary angiogram Intravascular ultrasound the proximal right coronary artery Drug-eluting stent deployment to the proximal dominant right coronary INDICATION Coronary artery disease, Angina pectoris, Abnormal stress test, MLA of 2.6 in the proximal dominant right coronary, Informed consent was obtained prior to the procedure. COMPLICATIONS NONE Estimated Blood Loss: LESS THAN 10 ML TECHNIQUE One percent lidocaine used to anesthetize the right anterior aspect of the wrist. The right radial artery was accessed via the Seldinger technique. A 6 Cymraes sheath was placed in the right radial artery. 2.5 mg of Verapamil, 800 mcg of nitroglycerin, 1mg Lidocaine and 5000 U Heparin were given through the arterial sheath. The papa catheter was advanced however would not go beyond the mid radial artery. Retrograde angiography was performed which demonstrated vessel was small tortuous and I felt access would not be simple therefore this access site was abandoned and it was decided to perform groin angiography One percent lidocaine was used to anesthetize the right groin. The right femoral artery was accessed via the Seldinger technique. A 4-Cymraes sheath was placed in the right femoral artery. The JL-4 and JR-4 catheter was also used to perform left heart catheterization left ventriculogram and selective coronary angiogram. At the end the diagnostic procedure the 4 Cymraes sheath was exchanged for a 6 Cymraes sheath and therapeutic heparin is administered giving a therapeutic ACT. A 6 Cymraes JR4 guide catheter was placed in the right coronary followed by Choice PT extra-support wire placed distally. Intravascular ultrasound probe was advanced which demonstrated an eccentric plaque in the proximal dominant right coronary artery producing an MLA of 2.6 mm???. Because of this a 4 mm x 22 mm [place] frontier stent was placed in the proximal right coronary artery at 20 cherry reducing the stenosis. Intravascular ultrasound probe was then readvanced which demonstrated excellent stent apposition and expansion with excellent distal transitioning. At the end of the procedure the apparatus was removed groin is reprepped closure change sheath was removed and hemostasis was achieved using Perclose device patient was transferred to the postop putting in stable condition ANGIOGRAPHIC RESULTS The left main artery Normal The left anterior descending artery Has stents in the proximal segment which are widely patent free of in-stent restenosis with excellent proximal distal transitioning. There is a stent in the ostial proximal diagonal artery which is widely patent with excellent distal transitioning The circumflex artery Nondominant with a proximal smooth 20% stenosis and a 30% ostial stenosis and a large first obtuse marginal artery The right coronary artery Large and dominant and has an angiographic ambiguous TZ possible napkin ringlike lesion which proved to have a stenosis of 80%. The remaining vessel has 20% stenoses is massively large and dominant The CALLAHAN ventriculogram reveals Hyperdynamic at 70% The left ventricular end-diastolic pressure Severely elevated at 30 to 35 mmHg IMPRESSION Widely patent proximal LAD stent extending into the mid LAD and bifurcating into a large first diagonal artery Severe stenosis and a massively large dominant right coronary artery with successful stenting reducing the lesion to 0% with 1 drug-eluting stent Hyperdynamic ventricle Severely elevated LVEDP PLAN 1. Dual antiplatelet therapy 2. Recommend sleep study 3. Cardiac rehabilitation 4. LDL less than 55 to achieve that high intensity statin 5. Avoidance of tobacco products Electronically signed by : Hipolito Avalos MD 12/17/2024 11:26:02
[2024-12-17 09:07] LABS: Basophils # 0.1 K/mm3 (0-0.2); Basophils % 0.5 % (0.1-2.0); Eosinophils # 0.7 K/mm3 (0.0-0.4); Eosinophils % 4.7 % (0.1-12.0); Hematocrit 47.7 % (37.0-47.0); Hemoglobin 15.9 g/dL (12.2-16.2); Lymphocytes # 3.5 K/mm3 (0.7-4.5); Lymphocytes % 23.1 % (10-50); Mean Corpuscular HGB Conc 33.3 g/dL (31.8-35.4); Mean Corpuscular Hemoglobin 31.6 pg (27.0-31.2); Mean Corpuscular Volume 94.8 fl (81-99); Mean Platelet Volume 10.9 fl (7.4-10.4); Monocytes # 1.1 K/mm3 (0.1-1.0); Monocytes % 7.3 % (1.7-9.3); Neutrophils # 9.6 K/mm3 (1.8-7.8); Neutrophils % 63.8 % (37.0-80.0); Platelet Count 256 K/mm3 (142-424); Red Blood Count 5.03 M/mm3 (4.20-5.40); Red Cell Distribution Width 13.6 % (11.5-17.5)
[2024-12-17 09:10] LABS: MANUAL DIFFERENTIAL MANUAL DIFFERENTIAL (MANUAL DIFF)
[2024-12-17 09:28] LABS: Eosinophils % 7 % (0-3); HCG Qualitative, Serum Negative (Negative); Lymphocytes % 29 % (10-50); Monocytes % 7 % (2-9); Neutrophils % 57 % (42-76); Platelet Estimate Normal; RBC Morphology Normal; Total Cells Counted 100
[2024-12-17 09:31] LABS: Chloride 105 mmol/L (98-107); Sodium 140 mmol/L (136-145)
[2024-12-17 09:34] LABS: Blood Urea Nitrogen 19 mg/dl (7-17); Calcium 9.3 mg/dl (8.4-10.2); Carbon Dioxide 25 mmol/L (22.0-30.0); Creatinine Clearance Estimated 119 mL/min (50-200); Estimated Glomerular Filt Rate 67 ml/min (>60); GFR (African American) 82 ML/MIN (>60); Glucose 100 mg/dl (74-100)
[2024-12-17] MEDS: LIDOCAINE 1% 10ML MDV 20 ML IJ (10:43)
[2024-12-17] MEDS: HEPARIN 1,000 UNITS/ML 10ML VIAL (CATH LAB) 10000 UNIT IV (10:43)
[2024-12-17] MEDS: VERAPAMIL 2.5MG/ML 2ML VIAL 2.5 MG IV (10:43)
[2024-12-17] MEDS: HEPARIN 1,000 UNITS/500ML NS (CATH LAB) 3000 UNIT IV (10:43)
[2024-12-17] MEDS: diphenhydrAMINE 50MG/ML VIAL 50 MG IV (10:43)
[2024-12-17] MEDS: 0.9 % SODIUM CHLORIDE 500 ML 25 ML IV (10:44)
[2024-12-17] MEDS: NITROGLYCERIN 800MCG/8ML SYR (CATH LAB) 800 MCG IA (10:44)
[2024-12-17] MEDS: MIDAZOLAM HCL 1MG/ML 5ML VIAL 1 MG IV (11:19)
[2024-12-17] MEDS: FENTANYL 100MCG/2ML VIAL 50 MCG IV (11:19)
[2024-12-17] MEDS: IOPAMIDOL-370 (76%);100ML BOTTLE 100 ML IV (14:41)
[2024-12-17 14:43] LABS: CATHL Activated Clotting Time 346 SEC (74-125)
== END 2024-12-17 14:33 | disposition home or self-care (01) ==
LOC: CATHLAB 08:34
PROVIDERS: PCP Nurse Practitioner; Visit Provider Internal Medicine
DX: I25.118 Atherosclerotic heart disease of native coronary artery with other forms of angina pectoris (principal); R06.02 Shortness of breath; R93.1 Abnormal findings on diagnostic imaging of heart and coronary circulation; R94.31 Abnormal electrocardiogram [ECG] [EKG]; F17.210 Nicotine dependence, cigarettes, uncomplicated; Z88.0 Allergy status to penicillin; Z88.8 Allergy status to other drugs, medicaments and biological substances; Z95.5 Presence of coronary angioplasty implant and graft; Z79.899 Other long term (current) drug therapy; I77.1 Stricture of artery
CPT/HCPCS: 80048; 84703; 85007; 85025; 85027; 85347; 92928; 92978; 93458; 99152; 99153; C1725; C1760; C1769; C1874; C1894; C9600; J1200; J1644; J3010; Q9967

== ENCOUNTER 2024-12-24 10:33 | Outpatient (CLI) | payer OTHER, SELFPAY ==
[2024-12-24 11:28] LABS: Basophils # 0.1 K/mm3 (0-0.2); Basophils % 0.4 % (0.1-2.0); Eosinophils # 0.5 K/mm3 (0.0-0.4); Hematocrit 43.3 % (37.0-47.0); Hemoglobin 14.6 g/dL (12.2-16.2); Lymphocytes # 3.2 K/mm3 (0.7-4.5); Mean Corpuscular HGB Conc 33.7 g/dL (31.8-35.4); Mean Corpuscular Hemoglobin 31.3 pg (27.0-31.2); Mean Corpuscular Volume 92.9 fl (81-99); Mean Platelet Volume 10.5 fl (7.4-10.4); Monocytes % 8.2 % (1.7-9.3); Neutrophils # 7.4 K/mm3 (1.8-7.8); Neutrophils % 60.9 % (37.0-80.0); Platelet Count 263 K/mm3 (142-424); Red Blood Count 4.66 M/mm3 (4.20-5.40); Red Cell Distribution Width 13.3 % (11.5-17.5); White Blood Count 12.1 K/mm3 (4.8-10.8)
[2024-12-24 12:21] LABS: Anion Gap 18.8 mEq/L (5-15); Blood Urea Nitrogen 17 mg/dl (7-17); Calcium 9.3 mg/dl (8.4-10.2); Carbon Dioxide 19 mmol/L (22.0-30.0); Chloride 105 mmol/L (98-107); Estimated Glomerular Filt Rate 67 ml/min (>60); GFR (African American) 82 ML/MIN (>60); Glucose 104 mg/dl (74-100); Potassium 3.8 mmoL/L (3.5-5.1); Sodium 139 mmol/L (136-145)
== END 2024-12-24 23:59 | disposition home or self-care (01) ==
LOC: LAB 10:34
PROVIDERS: PCP Nurse Practitioner; Visit Provider Internal Medicine
DX: Z95.5 Presence of coronary angioplasty implant and graft (principal)
CPT/HCPCS: 36415; 80048; 85025

== ENCOUNTER 2024-12-31 10:59 | Outpatient (CLI) | payer OTHER, SELFPAY ==
[2024-12-31 11:54] LABS: Albumin Level 4.1 g/dl (3.5-5.0)
[2024-12-31 11:54] LABS: Chloride 111 mmol/L (98-107)
[2024-12-31 11:55] LABS: Potassium 3.9 mmoL/L (3.5-5.1); Sodium 141 mmol/L (136-145)
[2024-12-31 11:57] LABS: Alanine Aminotransferase 18 U/L (12-78); Alkaline Phosphatase 76 U/L (38-126); Aspartate Amino Transferase 20 U/L (14-36); Bilirubin,Direct 0.1 mg/dl (0.0-0.4); Bilirubin,Indirect 0.4 mg/dL (0.0-0.9); Bilirubin,Total 0.5 mg/dl (0.2-1.3); Bilirubin,Unconjugated 0.4 mg/dL (0.0-1.1); Chol/HDL Ratio 3.2 (1-3.5); Cholesterol 118 mg/dl (140-200); HDL Cholesterol 37 mg/dl (40-60); Total Protein,Serum 7.1 g/dl (6.3-8.2); Triglycerides 124 mg/dl (30-150); VLDL Cholesterol 25 mg/dL (0-40)
[2024-12-31 11:58] LABS: Anion Gap 11.9 mEq/L (5-15); Blood Urea Nitrogen 17 mg/dl (7-17); Calcium 9.1 mg/dl (8.4-10.2); Carbon Dioxide 22 mmol/L (22.0-30.0); Estimated Glomerular Filt Rate 67 ml/min (>60); GFR (African American) 82 ML/MIN (>60); Glucose 102 mg/dl (74-100)
[2024-12-31 12:09] LABS: Direct LDL Cholesterol 63.11 mg/dL (100-129)
== END 2024-12-31 23:59 | disposition home or self-care (01) ==
LOC: LAB 11:00
PROVIDERS: Nurse Practitioner Family; PCP Nurse Practitioner; Visit Provider Internal Medicine
DX: R07.9 Chest pain, unspecified (principal); E78.2 Mixed hyperlipidemia; I10 Essential (primary) hypertension; I25.118 Atherosclerotic heart disease of native coronary artery with other forms of angina pectoris
CPT/HCPCS: 36415; 80048; 80061; 80076

== ENCOUNTER 2025-01-06 13:45 | Inpatient (IN) | payer OTHER, SELFPAY ==
[2025-01-06] VITALS (53 sets, daily range): BP systolic 109–179; BP diastolic 44–96; PULSE 50–77; RESP 16–22; TEMP 36.7–36.8; O2SAT 93–98; BMI 31.3
--- NOTE | 2025-01-06 11:08 | IR_ITS ---
APPROVED REPORT Patient Location: Emergent Curb Attendant: Andrew Parish, RT (R) PROCEDURES Left heart catheterization Left ventriculogram Selective coronary angiogram Intravascular ultrasound to the dominant right coronary artery Drug-eluting stent deployment to the ostial dominant right coronary artery followed by additional drug-eluting stent deployment to the proximal and mid dominant right coronary INDICATION Acute ST elevation inferior lateral myocardial infarction, Coronary artery disease, Atherosclerotic plaque SCAI INDICATION Dynamic EKG abnormalities. Patient was picked up by EMS and had a normal telemetry strip in field EKG. She then developed chest pain which demonstrated profound and massive ST elevation in leads II, III, aVF, V3 through 6. Based on this a STEMI alert was notified. Patient was brought directly to the Slasher Machine Operator and had no elevation at the time she arrived and was pain-free. Nevertheless cardiac catheterization was performed due to the reported ST elevation myocardial infarction Informed consent was obtained prior to the procedure. COMPLICATIONS NONE Estimated Blood Loss: LESS THAN 10 ML TECHNIQUE One percent lidocaine was used to anesthetize the right groin. The right femoral artery was accessed via the Seldinger technique. A 6-[place] sheath was placed in the right femoral artery. The JL-4 and JR-4 catheter was also used to perform left heart catheterization left ventriculogram and selective coronary angiogram. At the end the diagnostic angiogram therapeutic heparin was administered given a therapeutic ACT and the guide cath was placed in the right coronary followed by Choice PT extra-support wire placed distally. Intravascular sound probe was advanced which demonstrated moderate atheromatous plaque in the ostial proximal segment. There was also additional plaque in the proximal right coronary artery distal to the stent. The stent itself was widely patent with excellent stent apposition and expansion. There was moderate plaque proximal to the RV marginal branch. During the IVUS there was intense spasm in the proximal segment which mimicked the ST elevation myocardial infarction experienced on the EKG in the ambulance. 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 Because of this a 4 mm x 38 mm [place] frontier stent was placed distal to the stent and deployed at 18 cherry in order to reduce all of the plaque and extend into a normal segment. An additional 4 mm x 12 mm [place] frontier stent was placed in the ostial segment which overlapped the stent placed a few weeks ago and then deployed at 20 cherry. Repeat IVUS demonstrated excellent stent apposition with no exposed plaque to the proximal and midportion. Distally at the transition the vessel was widely patent with no plaque. Patient tolerated the procedure well. Then the procedure the apparatus was removed the patient was transferred to the postop putting her in stable condition for sheath removal ANGIOGRAPHIC RESULTS The left main artery Normal The left anterior descending artery Is proximally patent and has mid vessel luminal regularities. The diagonal artery has a stent in the ostial proximal segment which is widely patent and free of in-stent restenosis the remaining mid right coronary artery has a concentric 20% stenosis along a tortuous bend The circumflex artery Is nondominant and patent with a mid vessel 30 to 40% stenosis preceding an obtuse marginal artery stent which is widely patent with excellent distal transitioning The right coronary artery Is dominant and has an ostial 30% plaque followed by widely patent proximal stent which then has additional 30% plaque proven to be at least moderate and concentric by IVUS The CALLAHAN ventriculogram reveals Hyperdynamic 70 to 75% with a small amount of apical obliteration The left ventricular end-diastolic pressure Less than 10 mmHg IMPRESSION Aborted inferior lateral ST elevation myocardial infarction ST elevation myocardial infarction perhaps secondary to recalcitrant Prinzmetal angina versus possible coronary vasospasm at a moderate atheromatous plaque Hyperdynamic ventricle Normal LVEDP which is an interval change from previous heart cath PLAN 1. Continue Effient and aspirin 2. Discontinue bupropion. Patient is on 150 mg twice daily. There are reported cases where this can produce severe coronary vasospasm and mimic ST elevation myocardial infarction. This medicine should be discontinued 3. Continue nitrates and calcium channel blockers 4. There has been a significant interval change in patient's LVEDP with the addition of Bumex. Check creatinine to make sure patient does not become hypovolemic and adjust diuretics accordingly 5. Absolute avoidance of tobacco products 6. Patient is experiencing either a combination of Prinzmetal angina, spasm at a moderate atheromatous plaque possibly tobacco induced, versus coronary vasospasm from bupropion. Bupropion should be discontinued as should avoidance of fall first and secondhand tobacco smoke Electronically signed by : Hipolito Avalos MD 01/06/2025 13:36:15
[2025-01-06] MEDS: HEPARIN 1,000 UNITS/500ML NS (CATH LAB) 3000 UNIT IV (11:23)
[2025-01-06] MEDS: diphenhydrAMINE 50MG/ML VIAL 50 MG IV (11:24)
[2025-01-06] MEDS: 0.9 % SODIUM CHLORIDE 500 ML 25 ML IV (11:24)
[2025-01-06] MEDS: LIDOCAINE 1% 10ML MDV 10 ML IJ (11:24)
[2025-01-06] MEDS: HEPARIN 1,000 UNITS/ML 10ML VIAL (CATH LAB) 5000 UNIT IV (11:58)
[2025-01-06] MEDS: NITROGLYCERIN 800MCG/8ML SYR (CATH LAB) 800 MCG IA (11:58)
[2025-01-06] MEDS: MIDAZOLAM HCL 1MG/ML 5ML VIAL 1 MG IV (12:34)
[2025-01-06] MEDS: FENTANYL 100MCG/2ML VIAL 25 MCG IV (12:34)
[2025-01-06] MEDS: PRASUGREL 10MG TAB 10 MG PO (12:35)
[2025-01-06 12:37] LABS: Basophils % 0.2 % (0.1-2.0); Eosinophils # 0.2 Kmm3 (0.0-0.4); Eosinophils % 1.1 % (0.1-12.0); Hematocrit 42.8 % (37.0-47.0); Hemoglobin 14.5 g/dL (12.2-16.2); Lymphocytes # 1.6 K/mm3 (0.7-4.5); Lymphocytes % 9.5 % (10-50); Mean Corpuscular HGB Conc 33.9 g/dL (31.8-35.4); Mean Corpuscular Hemoglobin 31.2 pg (27.0-31.2); Mean Platelet Volume 11.1 fl (7.4-10.4); Monocytes # 0.8 K/mm3 (0.1-1.0); Neutrophils # 14.1 K/mm3 (1.8-7.8); Neutrophils % 83.8 % (37.0-80.0); Nucleated Red Blood Cells # 0 10^3/uL; Nucleated Red Blood Cells % 0 %; Platelet Count 186 K/mm3 (142-424); Red Blood Count 4.65 M/mm3 (4.20-5.40); Red Cell Distribution Width 13.2 % (11.5-17.5); Red Cell Distribution Width-SD 44.8 fL; White Blood Count 16.9 K/mm3 (4.8-10.8)
[2025-01-06 12:51] LABS: Chloride 111 mmol/L (98-107)
[2025-01-06 12:52] LABS: Potassium 4.4 mmoL/L (3.5-5.1); Sodium 139 mmol/L (136-145)
[2025-01-06 12:54] LABS: Blood Urea Nitrogen 24 mg/dl (7-17); Creatinine Clearance Estimated 118 mL/min (50-200); Estimated Glomerular Filt Rate 67 ml/min (>60); GFR (African American) 82 ML/MIN (>60)
[2025-01-06 12:55] LABS: Anion Gap 11.4 mEq/L (5-15); Calcium 9.1 mg/dl (8.4-10.2); Carbon Dioxide 21 mmol/L (22.0-30.0); Glucose 130 mg/dl (74-100)
--- NOTE | 2025-01-06 13:08 | SUR.PHASEII ---
ACT 258
[2025-01-06] MEDS: IOPAMIDOL-370 (76%);100ML BOTTLE 110 ML IV (13:21)
--- NOTE | 2025-01-06 13:41 | EXP.CARD.CON ---
History of Present Illness History of Present Illness Consult date: 01/06/25 Requesting physician: Louis Navarrete Consult reason: chest pain Chief complaint: STEMI Additional Medical History:: 1. CAD A. CCTA, 05/2024, CAC 126 with mod-severe plaque in prox LAD and prox Cx B. Cardiac cath, 07/10/2024, GONSALO to large first OM. Mod-severe disease mid LAD best treated with medical therapy. Hyperdynamic EF at 70% with LVEDP 25 mmHg. Bilateral renal arteries singular and normal C. Recurrent angina despite norvasc, isosorbide and ranexa D. Subhash myoview, 10/2024, TID of 1.26 with EF of 64% E. C, 10/2024, GONSALO to prox LAD extending into large second diagonal, plain angioplasty of mid LAD. EF 65%. LVEDP 10 mm Hg. F. Subhash myoview, 11/2024, TID of 1.44. EF 59%. G. [facility], 12/17/2024, GONSALO to RCA. Patent LAD stenting extending into the mid LAD and bifurcating into large first diagonal. EF 70% with LVEDP 30-35 mmHg. H. Norvasc and Lasix stopped. Verapamil and Bumex started 12/24/24 with increase in Aldactone. I. STEMI, 01/06/2025, resulting in 2 GONSALO to RCA due to Prinzmetal's angina on top of moderate CAD producing significant obstruction/symptoms/EKG changes. 2. Tobacco use 3. HTN/HHD A. Echo, 05/2024, normal biventricular systolic function, no significant valve disease. B. Echo, 11/2024, normal biventricular systolic function, no significant valve disease. 4. Hyperlipidemia A. On statin therapy History of present illness: Valerie Reese is a 44-year-old female with a medical history significant for CAD with stents, current tobacco smoker, hypertension, hyperlipidemia, GERD who presented via EMS today for progressive chest pains. 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 Dr. Avalos recommended discontinuing Wellbutrin, continue CCB and nitrates. Patient has had multiple stents since June 2024, with smoking as likely culprit. Patient is now very motivated to discontinue smoking. Dr. Avalos recommended admission and monitoring. The above per Dr. Navarrete Events as noted above confirmed with patient. 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 [facility] Disclaimer: The information contained in this section may have been updated after the patient was seen, as this information can be updated by other users. Medical History Diastolic dysfunction Elevated left ventricular end-diastolic pressure (LVEDP) Borderline diabetes Tobacco user Vertigo Near syncope Coronary artery disease SOB (shortness of breath) on exertion Typical angina Abnormal findings on diagnostic imaging of heart and coronary circulation Urinary tract infection Hyperlipidemia Hypertension Surgical History S/P cardiac cath Social History (Updated 01/06/25 @ 16:34 by Phyllis Hanson RN) Smoking Status: Current every day smoker tobacco type: cigarettes packs per day: 1 alcohol intake: never current occupational status: other Travel in the last 8 weeks: None Have you lived/traveled outside US in past 30 days?: No Contact w/someone who lives/traveled outside US past 30 days?: No Exposure to someone with infectious disease in past 14 days?: No Do you have a fever (greater than 100.4 F or 38 C)?: No Have you tested positive for COVID-19: No Exposed to someone with COVID-19 in past 14 days?: No Do you have a sore throat?: No Do you have a cough?: No Do you have any weakness?: No Are you experiencing any nausea/vomitting?: No Do you have any diarrhea?: No Are you experiencing any unusual bleeding?: No Do you have any muscle aches/pain?: No Do you have any abdominal pain?: No Are you experiencing loss of taste or smell?: No Review of Systems Review of Systems Review of systems:: pertinent systems reviewed and negative unless documented below *Cardiovascular Cardiovascular: Reports chest pain Exam Data for Last 24 hours Vital signs and Labs for Last 24 Hours: Pulse Resp BP Pulse Ox O2 Del Method 62 18 133/76 95 Room Air 01/06/25 13:35 01/06/25 13:35 01/06/25 13:35 01/06/25 13:35 01/06/25 13:35 Laboratory Results - last 24 hr 01/06/25 12:30: WBC 16.9 H, RBC 4.65, Hgb 14.5, Hct 42.8, MCV 92.0, MCH 31.2, MCHC 33.9, RDW 13.2, Plt Count 186, MPV 11.1 H, Neut % (Auto) 83.8 H, Lymph % (Auto) 9.5 L, Bladen % (Auto) 5.0, Eos % (Auto) 1.1, Baso % (Auto) 0.2, Neut # (Auto) 14.1 H, Lymph # (Auto) 1.6, Bladen # (Auto) 0.8, Eos # (Auto) 0.2, Baso # (Auto) 0.0, Sodium 139, Potassium 4.4, Chloride 111 H, Carbon Dioxide 21 L, Anion Gap 11.4, BUN 24 H, Creatinine 0.90, Estimated Creat Clear 118, Estimated GFR 67, Est GFR ( Amer) 82, Glucose 130 H, Calcium 9.1 I & O for Last 24 hours: Intake & Output 01/04/25 01/05/25 01/06/25 01/07/25 11:59 11:59 11:59 11:59 Weight 211 lb 10.3 oz Constitutional Constitutional: no acute distress *Routine Respiratory Exam Respiratory: Present CTA bilaterally *Routine Cardiovascular Exam Cardiovascular: Present RRR; Absent murmur, gallop or rubs Meds Home Medications and Allergies Home Medications ?Medication ?Instructions ?Recorded ?Confirmed ?Type aspirin 81 mg tablet,delayed 81 mg PO DAILY 05/29/24 01/06/25 History release prasugrel HCl 10 mg tablet 10 mg PO DAILY #30 tabs 07/10/24 01/06/25 Rx (Effient) rosuvastatin 40 mg tablet (Crestor) 40 mg PO DAILY #30 tabs 08/20/24 01/06/25 Rx pantoprazole 40 mg tablet,delayed 40 mg PO DAILY #30 tabs 09/02/24 01/06/25 Rx release (Protonix) valsartan 320 mg tablet 320 mg PO DAILY #30 tabs 02/03/25 04/22/25 Rx metoprolol succinate 50 mg 75 mg (1.5 x 50 mg) PO BID 30 days 11/26/24 01/06/25 Rx tablet,extended release 24 hr #90 tabs bupropion HCl 150 mg tablet,12 hr 150 mg PO BID #87 tabs 12/24/24 01/06/25 Rx sustained-release (Wellbutrin SR) ranolazine 500 mg tablet,extended 500 mg PO BID #180 tabs 12/24/24 01/06/25 Rx release,12 hr verapamil 240 mg 24 hr 240 mg PO DAILY #90 caps 12/24/24 01/06/25 Rx capsule,extended release bumetanide 2 mg tablet 2 mg PO DAILY #30 tabs 12/31/24 01/06/25 Rx spironolactone 100 mg tablet 100 mg PO DAILY #30 tabs 12/31/24 01/06/25 Rx (Aldactone) isosorbide mononitrate 60 mg 60 mg PO BID #60 tabs 01/06/25 Rx tablet,extended release 24 hr meclizine 25 mg tablet 25 mg PO TIDP PRN dizziness 01/06/25 01/06/25 History nicotine 1 patch transdermal Q24H 01/06/25 01/06/25 History 21mg/24hr-14mg/24hr-7mg/24hr daily transderm patches,sequentl New Prescriptions to Start Prescriptions: isosorbide mononitrate Hipolito Avalos Allergies Allergy/AdvReac Type Severity Reaction Status Date / Time Penicillins (PENICILLINS) Allergy Mild Unknown Verified 12/31/24 11:25 allergy reaction Assessment and Plan *Assessment and plan (1) STEMI (ST elevation myocardial infarction): Status: Acute Qualifiers: Involved coronary artery: right coronary artery Qualified Code(s): I21.11 - ST elevation (STEMI) myocardial infarction involving right coronary artery Category: Medical Code(s): I21.3 - ST elevation (STEMI) myocardial infarction of unspecified site (2) Tobacco user: Status: Acute Category: Social Hx Code(s): Z72.0 - Tobacco use (3) Hypertension: Status: Acute Qualifiers: Hypertension type: primary hypertension Qualified Code(s): I10 - Essential (primary) hypertension Category: Medical Code(s): I10 - Essential (primary) hypertension (4) Hyperlipidemia: Status: Acute Qualifiers: Hyperlipidemia type: mixed hyperlipidemia Qualified Code(s): E78.2 - Mixed hyperlipidemia Category: Medical Code(s): E78.5 - Hyperlipidemia, unspecified (5) Borderline diabetes: Status: Acute Category: Medical Code(s): R73.03 - Prediabetes (6) Elevated left ventricular end-diastolic pressure (LVEDP): Status: Acute Category: Medical Code(s): R94.30 - Abnormal result of cardiovascular function study, unspecified (7) Diastolic dysfunction: Status: Acute Category: Medical Code(s): I51.89 - Other ill-defined heart diseases Plan 1. STEMI -GONSALO to RCA -ASA and effient -check echo from today -stop verapamil -start norvasc and metoprolol -continue isosorbide mononitrate 60 mg daily and ranexa 500 mg twice daily -continue valsartan 2. Tobacco use -continue buproprion 3. Hyperlipidemia -continue Crestor 40 mg daily 4. HTN/HHD -continue valsartan 320 mg daily - Add metoprolol succinate 25 mg daily and Norvasc 5 mg daily - Continue Bumex that reduced to 1 mg daily and spironolactone reduced to 50 mg daily Monitor for a total of 48 hours Follow renal functions and adjust blood pressure meds as needed
--- NOTE | 2025-01-06 13:55 | HMH.PHAINT1 ---
Pharmacy Intervention Comments: MEDICATION RECONCILIATION COMPLETED ON PATIENT USING EXTERNAL FILL HISTORY FROM PHARMACY AND LIST FROM CARDIOLOGY OFFICE. -GANGA BARRETO, SAMID
[2025-01-06 14:14] LABS: CATHL Activated Clotting Time 365 SEC (74-125)
[2025-01-06] MEDS: PROTAMINE SULFATE 50MG/5ML VIAL (CATH LAB) 20 MG IV (14:40)
[2025-01-06] MEDS: METOPROLOL SUCCINATE XL 25MG TABLET 25 MG PO (16:08)
[2025-01-06] MEDS: AMLODIPINE 5MG TABLET 5 MG PO (16:08)
[2025-01-06] MEDS: ISOSORBIDE MONO 60MG TAB.ER.24H 60 MG PO (16:10)
[2025-01-06] MEDS: ACETAMINOPHEN 325MG TAB 650 MG PO (16:18)
[2025-01-06] MEDS: NICOTINE 21MG/24HR PATCH 21 MG TD (17:27)
--- NOTE | 2025-01-06 17:55 | P.HP_ITS ---
History of Present Illness *Admission Date: 01/06/25 *Reason for visit:: STEMI *History of present illness: Valerie Reese is a 44-year-old female with a medical history significant for CAD with stents, current tobacco smoker, hypertension, hyperlipidemia, GERD who presented via EMS today for progressive chest pains. 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 Dr. Avalos recommended discontinuing Wellbutrin, continue CCB and nitrates. Patient has had multiple stents since June 2024, with smoking as likely culprit. Patient is now very motivated to discontinue smoking. Dr. Avalos recommended admission and monitoring. [facility] Disclaimer: The information contained in this section may have been updated after the patient was seen, as this information can be updated by other users. Medical History Diastolic dysfunction Elevated left ventricular end-diastolic pressure (LVEDP) Borderline diabetes Tobacco user Vertigo Near syncope Coronary artery disease SOB (shortness of breath) on exertion Typical angina Abnormal findings on diagnostic imaging of heart and coronary circulation Urinary tract infection Hyperlipidemia Hypertension Surgical History S/P cardiac cath Social History (Updated 01/06/25 @ 16:34 by Phyllis Hanson RN) Smoking Status: Current every day smoker tobacco type: cigarettes packs per day: 1 alcohol intake: never current occupational status: other Travel in the last 8 weeks: None Have you lived/traveled outside US in past 30 days?: No Contact w/someone who lives/traveled outside US past 30 days?: No Exposure to someone with infectious disease in past 14 days?: No Do you have a fever (greater than 100.4 F or 38 C)?: No Have you tested positive for COVID-19: No Exposed to someone with COVID-19 in past 14 days?: No Do you have a sore throat?: No Do you have a cough?: No Do you have any weakness?: No Are you experiencing any nausea/vomitting?: No Do you have any diarrhea?: No Are you experiencing any unusual bleeding?: No Do you have any muscle aches/pain?: No Do you have any abdominal pain?: No Are you experiencing loss of taste or smell?: No Other Medical History Have you received the Flu Vaccine for this season: No Have you received the Pneumonia Vaccine: No Meds Home Medications and Allergies Home Medications ?Medication ?Instructions ?Recorded ?Confirmed ?Type aspirin 81 mg tablet,delayed 81 mg PO DAILY 05/29/24 01/06/25 History release prasugrel HCl 10 mg tablet 10 mg PO DAILY #30 tabs 07/10/24 01/06/25 Rx (Effient) rosuvastatin 40 mg tablet (Crestor) 40 mg PO DAILY #30 tabs 08/20/24 01/06/25 Rx pantoprazole 40 mg tablet,delayed 40 mg PO DAILY #30 tabs 09/02/24 01/06/25 Rx release (Protonix) valsartan 320 mg tablet 320 mg PO DAILY #30 tabs 10/20/24 01/06/25 Rx metoprolol succinate 50 mg 75 mg (1.5 x 50 mg) PO BID 30 days 11/26/24 01/06/25 Rx tablet,extended release 24 hr #90 tabs bupropion HCl 150 mg tablet,12 hr 150 mg PO BID #87 tabs 12/24/24 01/06/25 Rx sustained-release (Wellbutrin SR) ranolazine 500 mg tablet,extended 500 mg PO BID #180 tabs 12/24/24 01/06/25 Rx release,12 hr verapamil 240 mg 24 hr 240 mg PO DAILY #90 caps 12/24/24 01/06/25 Rx capsule,extended release bumetanide 2 mg tablet 2 mg PO DAILY #30 tabs 12/31/24 01/06/25 Rx spironolactone 100 mg tablet 100 mg PO DAILY #30 tabs 12/31/24 01/06/25 Rx (Aldactone) isosorbide mononitrate 60 mg 60 mg PO BID #60 tabs 01/06/25 Rx tablet,extended release 24 hr meclizine 25 mg tablet 25 mg PO TIDP PRN dizziness 01/06/25 01/06/25 History nicotine 1 patch transdermal Q24H 01/06/25 01/06/25 History 21mg/24hr-14mg/24hr-7mg/24hr daily transderm patches,sequentl New Prescriptions to Start Prescriptions: isosorbide mononitrate Hipolito Avalos Allergies Allergy/AdvReac Type Severity Reaction Status Date / Time Penicillins (PENICILLINS) Allergy Mild Unknown Verified 12/31/24 11:25 allergy reaction Exam Data for Last 24 hours Vital signs and Labs for Last 24 Hours: Temp Pulse Resp BP Pulse Ox O2 Del Method 98.2 F 56 L 20 119/71 98 Room Air 01/06/25 16:00 01/06/25 17:15 01/06/25 17:15 01/06/25 17:15 01/06/25 17:15 01/06/25 17:15 Laboratory Results - last 24 hr 01/06/25 11:48: Activated Clotting Time 365 H* 01/06/25 12:30: WBC 16.9 H, RBC 4.65, Hgb 14.5, Hct 42.8, MCV 92.0, MCH 31.2, MCHC 33.9, RDW 13.2, Plt Count 186, MPV 11.1 H, Neut % (Auto) 83.8 H, Lymph % (Auto) 9.5 L, Harper % (Auto) 5.0, Eos % (Auto) 1.1, Baso % (Auto) 0.2, Neut # (Auto) 14.1 H, Lymph # (Auto) 1.6, Harper # (Auto) 0.8, Eos # (Auto) 0.2, Baso # (Auto) 0.0, Sodium 139, Potassium 4.4, Chloride 111 H, Carbon Dioxide 21 L, Anion Gap 11.4, BUN 24 H, Creatinine 0.90, Estimated Creat Clear 118, Estimated GFR 67, Est GFR ( Amer) 82, Glucose 130 H, Calcium 9.1 I & O for Last 24 hours: Intake & Output 01/03/25 01/04/25 01/05/25 01/06/25 23:59 23:59 23:59 23:59 Weight 96 kg Constitutional Constitutional: no acute distress and obese *Routine HEENT Exam Head: Present normocephalic Eye: Present EOMI and PERRL ENT: Present mucous membranes moist *Routine Neck Exam Neck: Present supple; Absent lymphadenopathy *Routine Respiratory Exam Respiratory: Present CTA bilaterally *Routine Cardiovascular Exam Cardiovascular: Present RRR *Routine Abdominal Exam Abdominal: Present soft and normoactive bowel sounds; Absent tenderness *Routine Rectal Exam Rectal:: deferred *Routine Genitalia Exam Genitalia:: deferred *Routine Extremities Exam Extremities: Absent cyanosis, clubbing or edema *Routine Skin Exam Skin: Present warm; Absent rash *Routine Neurological Exam Neurological: Present alert and oriented X3 Assessment and Plan *Assessment and plan (1) STEMI (ST elevation myocardial infarction): Status: Acute Qualifiers: Involved coronary artery: right coronary artery Qualified Code(s): I21. 11 - ST elevation (STEMI) myocardial infarction involving right coronary artery Category: Medical Code(s): I21.3 - ST elevation (STEMI) myocardial infarction of unspecified site Plan Valerie Reese is a 44-year-old female with a medical history significant for CAD with stents, current tobacco smoker, hypertension, hyperlipidemia, GERD who presented via EMS today for progressive chest pains. 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 Dr. Avalos recommended discontinuing Wellbutrin, continue CCB and nitrates. Patient has had multiple stents since June 2024, with smoking as likely culprit. Patient is now very motivated to discontinue smoking. Dr. Avalos recommended admission and monitoring. #STEMI #Prinzmetal angina versus coronary vasospasm #Elevated LVEDP #History of CAD with stents #Hypertension, hyperlipidemia ? Cardiology consulted, s/p [facility] with GONSALO x 2 to RCA to areas with moderate arthrosclerotic plaque likely causing vasospasms. Prinzmetal angina versus coronary vasospasm at moderate arthrosclerotic plaque. Dr. Avalos recommended discontinuing Wellbutrin, continue CCB and nitrates. ? Patient continues to smoke, but is now very motivated to discontinue. at bedside is supportive. ? Patient has had multiple stents since June 2024, with smoking as most likely ongoing risk factor. ? Continue aspirin 81 mg, prasugrel 10 mg, atorvastatin 40 mg, metoprolol succinate 25 mg, ranolazine 500 mg twice daily, Imdur 60 mg, valsartan 320 mg, spironolactone 50 mg. ? Cardiology started amlodipine 5 mg, stopped verapamil. ? Continue Bumex 1 mg for elevated LVEDP. ? LDL 63, follow-up TSH and A1c. ? Follow-up morning CBC, CMP. ? Follow-up ECHO. ? Continuous cardiac telemetry. #Tobacco use disorder ? Nicotine patch 21 mg daily. Full code DVT prophylaxis: Lovenox 40 mg
[2025-01-06] MEDS: RANOLAZINE 500MG ER TABLET 500 MG PO (20:40)
[2025-01-06] MEDS: PANTOPRAZOLE 40MG TABLET 40 MG PO (20:40)
[2025-01-06] MEDS: ATORVASTATIN 40MG TABLET 80 MG PO (20:40)
[2025-01-06 21:34] LABS: Free T4 (Free Thyroxine) 1.03 ng/dl (0.78-2.19)
[2025-01-06 21:44] LABS: Thyroid Stimulating Hormone 0.58 uIU/mL (0.465-4.68)
[2025-01-07] VITALS: BP 105/61; PULSE 58; PULSE 60; RESP 16; TEMP 36.6; O2SAT 96
[2025-01-07] MEDS: ACETAMINOPHEN 325MG TAB 650 MG PO ×2 (01:20→12:30)
[2025-01-07 01:23] LABS: Adenovirus,PCR Not Detected (NotDetected); Bordetella Pertussis Not Detected (NotDetected); Chlamydophila Pneumoniae, PCR Not Detected (NotDetected); Coronavirus 19, PCR Not Detected (NotDetected); Coronavirus 229E Not Detected (NotDetected); Coronavirus NL63 Not Detected (NotDetected); Coronavirus OC43 Not Detected (NotDetected); Coronovirus HKU1,PCR Not Detected (NotDetected); Human Metapneumovirus Not Detected (NotDetected); Influenza A, PCR Not Detected (NotDetected); Influenza AH1, 2009 Not Detected (NotDetected); Influenza AH1, PCR Not Detected (NotDetected); Influenza AH3,PCR Not Detected (NotDetected); Influenza B, PCR Not Detected (NotDetected); Mycoplasma Pneumoniae, PCR Not Detected (NotDetected); Parainfluenza 1, PCR Not Detected (NotDetected); Parainfluenza 2, PCR Not Detected (NotDetected); Parainfluenza 3, PCR Not Detected (NotDetected); Parainfluenza 4, PCR Not Detected (NotDetected); Respiratory Syncytial Virus Not Detected (NotDetected)
[2025-01-07 02:55] LABS: Rhinovirus/Enterovirus Detected (NotDetected)
[2025-01-07 04:00] VITALS: BP 100/55; PULSE 60; RESP 16; TEMP 36.5; O2SAT 96; BMI 29.6
--- NOTE | 2025-01-07 04:00 | PC.NURSE ---
Patient is alert and oriented x4. She was observed to have eyes closed, respirations even and unlabored on room air, and no apparent distress throughout the majority of the night. Her mother has remained at the bedside. Right femoral/groin cath site was accessed; no bleeding or drainage was noted from the site. Dressing remains clean, dry, and intact. Pulses +2. Skin temperature of the right lower extremity is consistently warm. The patient has not had any complaints of pain within the area. Patient was able to sit up from lying flat at 21:30 this shift; purewick also removed per patient's request. Post-angio assessments and vital sign assessments were completed during this shift. She ambulated independently to the bathroom without difficulties or complaints of dizziness/lightheadedness. No chest pain. She did complain of a headache at one point during this shift; Tylenol was given per NOV. Scheduled medications were also administered as appropriately per NOV. Auscultation of her heart, lungs, and bowels were within normal findings. Sinus bradycardia/normal sinus rhythm on telemetry. Other vital signs stable. Respiratory panel was collected during this shift; results came back positive for Entero/Rhinovirus. Droplet precautions initiated. At this time, the patient is resting in bed without any further complaints. No new needs at this time. Call light within reach.
[2025-01-07 06:24] LABS: Hemoglobin A1C 5.5 % (4.0-6.0)
[2025-01-07 06:27] LABS: Basophils # 0.1 K/mm3 (0-0.2); Basophils % 0.3 % (0.1-2.0); Eosinophils # 0.3 Kmm3 (0.0-0.4); Eosinophils % 2.2 % (0.1-12.0); Hematocrit 41.4 % (37.0-47.0); Hemoglobin 13.9 g/dL (12.2-16.2); Lymphocytes # 3.7 K/mm3 (0.7-4.5); Lymphocytes % 24.3 % (10-50); Mean Corpuscular HGB Conc 33.6 g/dL (31.8-35.4); Mean Corpuscular Hemoglobin 31.3 pg (27.0-31.2); Mean Corpuscular Volume 93.2 fl (81-99); Mean Platelet Volume 11.1 fl (7.4-10.4); Monocytes # 1.2 K/mm3 (0.1-1.0); Monocytes % 8.2 % (1.7-9.3); Neutrophils # 9.8 K/mm3 (1.8-7.8); Neutrophils % 64.7 % (37.0-80.0); Nucleated Red Blood Cells # 0 10^3/uL; Nucleated Red Blood Cells % 0 %; Platelet Count 183 K/mm3 (142-424); Red Blood Count 4.44 M/mm3 (4.20-5.40); Red Cell Distribution Width 13.1 % (11.5-17.5); Red Cell Distribution Width-SD 44.8 fL; White Blood Count 15.2 K/mm3 (4.8-10.8)
[2025-01-07 06:28] LABS: Albumin Level 3.8 g/dl (3.5-5.0); Chloride 112 mmol/L (98-107)
[2025-01-07 06:29] LABS: Potassium 4.1 mmoL/L (3.5-5.1); Sodium 138 mmol/L (136-145)
[2025-01-07 06:31] LABS: Alanine Aminotransferase 16 U/L (12-78); Alkaline Phosphatase 83 U/L (38-126); Anion Gap 11.1 mEq/L (5-15); Aspartate Amino Transferase 38 U/L (14-36); Bilirubin,Total 0.6 mg/dl (0.2-1.3); Blood Urea Nitrogen 15 mg/dl (7-17); Carbon Dioxide 19 mmol/L (22.0-30.0); Creatinine Clearance Estimated 112 mL/min (50-200); Estimated Glomerular Filt Rate 67 ml/min (>60); GFR (African American) 82 ML/MIN (>60)
[2025-01-07 06:32] LABS: Albumin/Globulin Ratio 1.2 (1.1-1.8); Calcium 8.6 mg/dl (8.4-10.2); Globulin 3.2 g/dL (1.3-3.2); Glucose 101 mg/dl (74-100)
[2025-01-07 08:00] VITALS: BP 108/51; PULSE 58; PULSE 80; RESP 18; TEMP 36.4; O2SAT 98
--- NOTE | 2025-01-07 08:48 | EXP.CARD.PN ---
Subjective Subjective Date: 01/07/25 Time: 08:48 Principal diagnosis: STEMI Interval history: 44 yo WF in bed in NAD. Results of cath discussed with patient. Encouraged smoking cessation. Pt is wearing nicotine patch. Exam Data for Last 24 hours Vital signs and Labs for Last 24 Hours: Temp Pulse Resp BP Pulse Ox O2 Del Method 97.7 F 60 16 100/55 L 96 Room Air 01/07/25 04:00 01/07/25 04:00 01/07/25 04:00 01/07/25 04:00 01/07/25 04:00 01/07/25 07:16 Laboratory Results - last 24 hr 01/06/25 11:48: Activated Clotting Time 365 H* 01/06/25 12:30: WBC 16.9 H, RBC 4.65, Hgb 14.5, Hct 42.8, MCV 92.0, MCH 31.2, MCHC 33.9, RDW 13.2, Plt Count 186, MPV 11.1 H, Neut % (Auto) 83.8 H, Lymph % (Auto) 9.5 L, Evangeline % (Auto) 5.0, Eos % (Auto) 1.1, Baso % (Auto) 0.2, Neut # (Auto) 14.1 H, Lymph # (Auto) 1.6, Evangeline # (Auto) 0.8, Eos # (Auto) 0.2, Baso # (Auto) 0.0, Sodium 139, Potassium 4.4, Chloride 111 H, Carbon Dioxide 21 L, Anion Gap 11.4, BUN 24 H, Creatinine 0.90, Estimated Creat Clear 118, Estimated GFR 67, Est GFR ( Amer) 82, Glucose 130 H, Calcium 9.1 01/06/25 18:31: TSH 0.58, Free T4 1.03 01/07/25 01:15: Chlamy pneumoniae PCR Not detected, Adenovirus (PCR) Not detected, B. pertussis DNA (PCR) Not detected, Coronavirus OC43 (PCR) Not detected, Coronavirus HKU1 (PCR) Not detected, Coronavirus 229E (PCR) Not detected, SARS-CoV-2 (PCR) Not detected, Coronavirus NL63 (PCR) Not detected, Human Metapneumovir PCR Not detected, Influenza A (H1) PCR Not detected, Influ A (H1N1/09) PCR Not detected, Influenza A (H3) PCR Not detected, Influenza Type A (PCR) Not detected, Influenza Type B (PCR) Not detected, M. pneumoniae (PCR) Not detected, Parainfluenza 1 (PCR) Not detected, Parainfluenza 2 (PCR) Not detected, Parainfluenza 3 (PCR) Not detected, Parainfluenza 4 (PCR) Not detected, RSV (PCR) Not detected, Entero/Rhino (PCR) Detected A 01/07/25 06:07: WBC 15.2 H, RBC 4.44, Hgb 13.9, Hct 41.4, MCV 93.2, MCH 31.3 H, MCHC 33.6, RDW 13.1, Plt Count 183, MPV 11.1 H, Neut % (Auto) 64.7, Lymph % (Auto) 24.3, Evangeline % (Auto) 8.2, Eos % (Auto) 2.2, Baso % (Auto) 0.3, Neut # (Auto) 9.8 H, Lymph # (Auto) 3.7, Evangeline # (Auto) 1.2 H, Eos # (Auto) 0.3, Baso # (Auto) 0.1, Sodium 138, Potassium 4.1, Chloride 112 H, Carbon Dioxide 19 L, Anion Gap 11.1, BUN 15 D, Creatinine 0.90, Estimated Creat Clear 112, Estimated GFR 67, Est GFR ( Amer) 82, Glucose 101 H D, Hemoglobin A1c 5.5, Calcium 8.6, Magnesium 2.0, Total Bilirubin 0.6, AST 38 H, ALT 16, Alkaline Phosphatase 83, Total Protein 7.0, Albumin 3.8, Globulin 3.2, Albumin/Globulin Ratio 1.2 I & O for Last 24 hours: Intake & Output 01/04/25 01/05/25 01/06/25 01/07/25 11:59 11:59 11:59 11:59 Intake Total 222 / 222 Output Total 0 / 0 Balance 222 / 222 Weight 211 lb 10.3 oz 200 lb Constitutional Constitutional: no acute distress *Routine Respiratory Exam Respiratory: Present CTA bilaterally *Routine Cardiovascular Exam Cardiovascular: Present RRR Progress Note: A&P Assessment and plan (1) STEMI (ST elevation myocardial infarction): Status: Acute (2) Tobacco user: Status: Acute (3) Hypertension: Status: Acute (4) Hyperlipidemia: Status: Acute (5) Borderline diabetes: Status: Acute (6) Elevated left ventricular end-diastolic pressure (LVEDP): Status: Acute (7) Diastolic dysfunction: Status: Acute Assessment and Plan Assessment and Plan for All Diagnoses:: 1. STEMI -GONSALO to RCA -ASA and effient -echo results pending -stopped verapamil -started norvasc and metoprolol -continue isosorbide mononitrate 60 mg daily and ranexa 500 mg twice daily -hold valsartan in favor of anti-spasmodic meds 2. Tobacco use -nicotine patch in place 3. Hyperlipidemia -continue Crestor 40 mg daily 4. HTN/HHD - on metoprolol succinate 25 mg daily and Norvasc 5 mg daily - Continue Bumex but reduced to 1 mg daily and spironolactone reduced to 50 mg daily - hold valsartan for now due to low BP Monitor overnight with plans for discharge tomorrow
[2025-01-07] MEDS: BUMETANIDE 1 MG TABLET PO (08:49)
[2025-01-07] MEDS: ENOXAPARIN 40MG/0.4ML SYRINGE 40 MG SUBCUT (08:49)
[2025-01-07] MEDS: RANOLAZINE 500MG ER TABLET 500 MG PO ×2 (08:49→20:38)
[2025-01-07] MEDS: SPIRONOLACTONE 25MG TABLET 50 MG PO (08:49)
[2025-01-07] MEDS: METOPROLOL SUCCINATE XL 25MG TABLET 25 MG PO (08:56)
[2025-01-07] MEDS: AMLODIPINE 5MG TABLET 5 MG PO (08:56)
[2025-01-07] MEDS: ASPIRIN EC 81MG TABLET 81 MG PO (08:56)
[2025-01-07] MEDS: NICOTINE 21MG/24HR PATCH 21 MG TD (08:57)
[2025-01-07] MEDS: PRASUGREL 10MG TAB 10 MG PO (09:04)
[2025-01-07] MEDS: ISOSORBIDE MONO 60MG TAB.ER.24H 60 MG PO (09:04)
[2025-01-07 12:00] VITALS: BP 99/64; PULSE 54; PULSE 60; RESP 18; TEMP 36.9; O2SAT 98
[2025-01-07 16:00] VITALS: BP 91/54; PULSE 58; PULSE 70; RESP 16; TEMP 36.8; O2SAT 98
--- NOTE | 2025-01-07 16:09 | EXP.ACUTE.PN ---
Subjective *Date: 01/07/25 *Time: 16:09 Interval history: Patient feeling better this morning. Still has some mild chest comfort. Able on room air. No nausea or vomiting. Denies shortness of breath. Medical Exam Vital signs and Labs for Last 24 Hours: Vital Signs Temp Pulse Pulse Resp BP BP Pulse Ox 01/07/25 15:00 01/07/25 13:00 01/07/25 12:00 98.4 F 54 L 18 99/64 L 98 01/07/25 12:00 60 01/07/25 11:00 01/07/25 09:00 01/07/25 08:00 80 01/07/25 08:00 97.5 F L 58 L 18 108/51 L 98 01/07/25 07:16 01/07/25 06:50 01/07/25 05:00 01/07/25 04:00 97.7 F 60 16 100/55 L 96 01/07/25 04:00 60 01/07/25 03:00 01/07/25 01:00 01/07/25 00:00 97.8 F 58 L 16 105/61 L 96 01/07/25 00:00 60 01/06/25 23:00 01/06/25 22:45 61 18 119/69 98 01/06/25 21:45 54 L 19 115/56 L 97 01/06/25 21:00 01/06/25 20:45 52 L 20 118/63 97 01/06/25 20:00 98.1 F 56 L 16 117/66 98 01/06/25 20:00 57 L 17 97 01/06/25 20:00 50 L 01/06/25 19:45 56 L 18 114/63 97 01/06/25 18:50 01/06/25 18:45 57 L 20 118/70 97 01/06/25 18:15 58 L 21 115/60 97 01/06/25 17:45 54 L 20 109/63 L 98 01/06/25 17:15 56 L 20 119/71 98 01/06/25 16:45 58 L 18 126/72 98 01/06/25 16:39 01/06/25 16:30 60 18 124/70 98 01/06/25 16:15 61 20 138/82 98 O2 Del Method 01/07/25 15:00 Room Air 01/07/25 13:00 Room Air 01/07/25 12:00 Room Air 01/07/25 12:00 01/07/25 11:00 Room Air 01/07/25 09:00 Room Air 01/07/25 08:00 01/07/25 08:00 Room Air 01/07/25 07:16 Room Air 01/07/25 06:50 Room Air 01/07/25 05:00 Room Air 01/07/25 04:00 Room Air 01/07/25 04:00 01/07/25 03:00 Room Air 01/07/25 01:00 Room Air 01/07/25 00:00 Room Air 01/07/25 00:00 01/06/25 23:00 Room Air 01/06/25 22:45 Room Air 01/06/25 21:45 Room Air 01/06/25 21:00 Room Air 01/06/25 20:45 Room Air 01/06/25 20:00 Room Air 01/06/25 20:00 Room Air 01/06/25 20:00 01/06/25 19:45 Room Air 01/06/25 18:50 Room Air 01/06/25 18:45 Room Air 01/06/25 18:15 Room Air 01/06/25 17:45 Room Air 01/06/25 17:15 Room Air 01/06/25 16:45 Room Air 01/06/25 16:39 Room Air 01/06/25 16:30 Room Air 01/06/25 16:15 Room Air Intake and Output 01/07/25 01/07/25 01/07/25 07:59 15:59 23:59 Intake Total 222 / 1072 850 / 1072 Output Total 0 / 0 0 / 0 Balance 222 / 1072 850 / 1072 Intake: Intake, Oral Amount 222 / 1072 850 / 1072 Output: Output, Urine Amount 0 / 0 0 / 0 Other: Number of Unmeasured Voids 1 0 Weight 90.718 kg Patient Weight 01/07/25 23:59 Weight 90.718 kg Laboratory Results - last 24 hr 01/06/25 18:31: TSH 0.58, Free T4 1.03 01/07/25 01:15: Chlamy pneumoniae PCR Not detected, Adenovirus (PCR) Not detected, B. pertussis DNA (PCR) Not detected, Coronavirus OC43 (PCR) Not detected, Coronavirus HKU1 (PCR) Not detected, Coronavirus 229E (PCR) Not detected, SARS-CoV-2 (PCR) Not detected, Coronavirus NL63 (PCR) Not detected, Human Metapneumovir PCR Not detected, Influenza A (H1) PCR Not detected, Influ A (H1N1/09) PCR Not detected, Influenza A (H3) PCR Not detected, Influenza Type A (PCR) Not detected, Influenza Type B (PCR) Not detected, M. pneumoniae (PCR) Not detected, Parainfluenza 1 (PCR) Not detected, Parainfluenza 2 (PCR) Not detected, Parainfluenza 3 (PCR) Not detected, Parainfluenza 4 (PCR) Not detected, RSV (PCR) Not detected, Entero/Rhino (PCR) Detected A 01/07/25 06:07: WBC 15.2 H, RBC 4.44, Hgb 13.9, Hct 41.4, MCV 93.2, MCH 31.3 H, MCHC 33.6, RDW 13.1, Plt Count 183, MPV 11.1 H, Neut % (Auto) 64.7, Lymph % (Auto) 24.3, [place] % (Auto) 8.2, Eos % (Auto) 2.2, Baso % (Auto) 0.3, Neut # (Auto) 9.8 H, Lymph # (Auto) 3.7, [place] # (Auto) 1.2 H, Eos # (Auto) 0.3, Baso # (Auto) 0.1, Sodium 138, Potassium 4.1, Chloride 112 H, Carbon Dioxide 19 L, Anion Gap 11.1, BUN 15 D, Creatinine 0.90, Estimated Creat Clear 112, Estimated GFR 67, Est GFR ( Amer) 82, Glucose 101 H D, Hemoglobin A1c 5.5, Calcium 8.6, Magnesium 2.0, Total Bilirubin 0.6, AST 38 H, ALT 16, Alkaline Phosphatase 83, Total Protein 7.0, Albumin 3.8, Globulin 3.2, Albumin/Globulin Ratio 1.2 I & O for Labs for Last 24 Hours: Intake & Output 01/04/25 01/05/25 01/06/25 01/07/25 23:59 23:59 23:59 23:59 Intake Total 1072 / 1072 Output Total 0 / 0 0 / 0 Balance 0 / 222 2 / 1072 Weight 96 kg 90.718 kg Constitutional: Present no acute distress, obese, chronically ill appearing and cooperative Head: Present atraumatic and normocephalic ENT: Present normal exam Respiratory: Present normal respiratory effort; Absent rhonchi, wheezes or crackles Cardiac: Present Reg Rate and Rhythm Comment:: mild sternal tenderness to palpation GI: Present soft and normal bowel sounds; Absent distention or tenderness Extremities: Present normal inspection and full ROM Skin: Present intact; Absent erythema Neuro: Present Grossly Intact, alert, awake, oriented x 3 and moves all extremities Assessment and Plan *Assessment and plan (1) STEMI (ST elevation myocardial infarction): Status: Acute Qualifiers: Involved coronary artery: right coronary artery Qualified Code(s): I21.11 - ST elevation (STEMI) myocardial infarction involving right coronary artery Category: Medical Code(s): I21.3 - ST elevation (STEMI) myocardial infarction of unspecified site (2) Diastolic dysfunction: Status: Acute Category: Medical Code(s): I51.89 - Other ill-defined heart diseases (3) Elevated left ventricular end-diastolic pressure (LVEDP): Status: Acute Category: Medical Code(s): R94.30 - Abnormal result of cardiovascular function study, unspecified (4) Tobacco user: Status: Acute Category: Social Hx Code(s): Z72.0 - Tobacco use (5) Chest pain: Status: Acute Category: Medical Code(s): R07.9 - Chest pain, unspecified (6) Coronary artery disease: Status: Acute Qualifiers: Coronary Disease-Associated Artery/Lesion type: [place] artery [place] vs. transplanted heart: [place] heart Associated angina: with other forms of angina Qualified Code(s): I25.118 - Atherosclerotic heart disease of [place] coronary artery with other forms of angina pectoris Category: Medical Code(s): I25.10 - Atherosclerotic heart disease of [place] coronary artery without angina pectoris (7) Hypertension: Status: Acute Qualifiers: Hypertension type: primary hypertension Qualified Code(s): I10 - Essential (primary) hypertension Category: Medical Code(s): I10 - Essential (primary) hypertension (8) Hyperlipidemia: Status: Acute Qualifiers: Hyperlipidemia type: mixed hyperlipidemia Qualified Code(s): E78.2 - Mixed hyperlipidemia Category: Medical Code(s): E78.5 - Hyperlipidemia, unspecified Plan Valerie Reese is a 44-year-old female with a medical history significant for CAD with stents, current tobacco smoker, hypertension, hyperlipidemia, GERD who presented via EMS today for progressive chest pains. 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 Dr. Avalos recommended discontinuing Wellbutrin, continue CCB and nitrates. Patient has had multiple stents since June 2024, with smoking as likely culprit. Patient is now very motivated to discontinue smoking. Dr. Avalos recommended admission and monitoring. Pain improving. Monitoring for 24 more hours due to medication adjustments and need for close monitoring. Anticipate discharge tomorrow. Cardiology continues to support care. 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 Cardiology consulted, s/p [facility] with GONSALO x 2 to RCA to areas with moderate arthrosclerotic plaque likely causing vasospasms. Prinzmetal angina versus coronary vasospasm at moderate arthrosclerotic plaque. Dr. Avalos recommended discontinuing Wellbutrin. -Discussed case with cardiology this morning, recommend holding valsartan today due to soft blood pressures. Continue metoprolol succinate 25 mg daily, Norvasc 5 mg daily, isosorbide mononitrate 60 mg daily and Ranexa 500 mg twice daily. ? Patient continues to smoke, but is now very motivated to discontinue. at bedside is supportive. ? Patient has had multiple stents since June 2024, with smoking as most likely ongoing risk factor. ? Continue aspirin 81 mg, prasugrel 10 mg, atorvastatin 40 mg ? Continue Bumex 1 mg daily and spironolactone 50 mg daily for elevated LVEDP. - A1c 5.5, TSH 0.58. No thyroid disease or diabetes. Hyperlipidemia: Continue Crestor 40 mg daily #Tobacco use disorder ? Nicotine patch 21 mg daily. Full code DVT prophylaxis: Lovenox 40 mg Cardiac diet
--- NOTE | 2025-01-07 19:27 | CA_ITS ---
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 Limited windows are obtained. The left ventricle is normal in size. There is increased LV wall thickness. There is normal global LV systolic function. LVEF is 60%. Electronically signed by : Chelsea Gimenez MD 01/07/2025 12:40:04
[2025-01-07 20:00] VITALS: BP 90/56; PULSE 60; RESP 18; TEMP 36.8; O2SAT 96
[2025-01-07] MEDS: PANTOPRAZOLE 40MG TABLET 40 MG PO (20:38)
[2025-01-07] MEDS: ATORVASTATIN 40MG TABLET 80 MG PO (20:38)
[2025-01-07] MEDS: SODIUM CHLORIDE 0.9% 10ML FLUSH SYRINGE 10 ML IV (20:44)
[2025-01-08] VITALS: BP 86/47; PULSE 60; PULSE 64; RESP 16; TEMP 36.7; O2SAT 96
[2025-01-08] MEDS: ACETAMINOPHEN 325MG TAB 650 MG PO (01:10)
[2025-01-08 04:00] VITALS: BP 107/57; PULSE 56; PULSE 60; RESP 14; TEMP 36.4; O2SAT 96; BMI 31.6
--- NOTE | 2025-01-08 05:00 | PC.NURSE ---
Pt is alert and orientated x 4. Pt is on room air. Pt. states that she feels better. Pt. denies chest pain or SOB. right femoral groin site with dressing in place. dressing is clean, dry and intact. Pt. has +2 pulses in all extremities. Pt. states that the site is a little sore. Pt. c/o some spasm type mild chest pain. Pt. offered Hydrocodone for pain but refused and requested Tylenol instead. Pt. medicated with Tylenol. Minimal effect of pain relief. Pt. sleeping on and off this shift. Pt. is has no other c/o's. Personal items and call dowd in reach.
[2025-01-08 06:13] LABS: Basophils % 0.4 % (0.1-2.0); Eosinophils # 0.4 Kmm3 (0.0-0.4); Eosinophils % 3.5 % (0.1-12.0); Hematocrit 41.5 % (37.0-47.0); Hemoglobin 13.7 g/dL (12.2-16.2); Lymphocytes # 3.8 K/mm3 (0.7-4.5); Lymphocytes % 33.9 % (10-50); Mean Corpuscular Hemoglobin 30.5 pg (27.0-31.2); Mean Corpuscular Volume 92.4 fl (81-99); Mean Platelet Volume 11.1 fl (7.4-10.4); Monocytes % 8.4 % (1.7-9.3); Neutrophils # 6.1 K/mm3 (1.8-7.8); Neutrophils % 53.5 % (37.0-80.0); Nucleated Red Blood Cells # 0 10^3/uL; Nucleated Red Blood Cells % 0 %; Platelet Count 182 K/mm3 (142-424); Red Blood Count 4.49 M/mm3 (4.20-5.40); Red Cell Distribution Width 13.1 % (11.5-17.5); Red Cell Distribution Width-SD 44.3 fL; White Blood Count 11.3 K/mm3 (4.8-10.8)
[2025-01-08 06:28] LABS: Albumin Level 3.8 g/dl (3.5-5.0); Chloride 109 mmol/L (98-107); Sodium 138 mmol/L (136-145)
[2025-01-08 06:29] LABS: Potassium 3.9 mmoL/L (3.5-5.1)
[2025-01-08 06:31] LABS: Alanine Aminotransferase 18 U/L (12-78); Albumin/Globulin Ratio 1.3 (1.1-1.8); Alkaline Phosphatase 78 U/L (38-126); Anion Gap 8.9 mEq/L (5-15); Aspartate Amino Transferase 26 U/L (14-36); Bilirubin,Total 0.4 mg/dl (0.2-1.3); Blood Urea Nitrogen 13 mg/dl (7-17); Carbon Dioxide 24 mmol/L (22.0-30.0); Creatinine Clearance Estimated 108 mL/min (50-200); Estimated Glomerular Filt Rate 60 ml/min (>60); GFR (African American) 72 ML/MIN (>60); Total Protein,Serum 6.8 g/dl (6.3-8.2)
[2025-01-08 06:32] LABS: Calcium 8.9 mg/dl (8.4-10.2); Glucose 92 mg/dl (74-100)
[2025-01-08 06:49] LABS: Magnesium 1.9 mg/dl (1.6-2.3)
--- NOTE | 2025-01-08 07:46 | EXP.DC.SUM ---
General Admission date:: 01/06/25 Discharge date: 01/08/25 HPI HPI HPI: Valerie Reese is a 44-year-old female with a medical history significant for CAD with stents, current tobacco smoker, hypertension, hyperlipidemia, GERD who presented via EMS today for progressive chest pains. 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 with GONSALO x 2 to RCA to areas with moderate arthrosclerotic plaque likely causing vasospasms versus Prinzmetal angina. Dr. Avalos recommended discontinuing Wellbutrin, continue CCB and nitrates. Patient has had multiple stents since June 2024, with smoking as likely culprit. Patient is now very motivated to discontinue smoking. Dr. Avalos recommended admission and monitoring. Hospital Course Hospital Course Hospital Course: Valerie Reese is a 44-year-old female with a medical history significant for CAD with stents, current tobacco smoker, hypertension, hyperlipidemia, GERD who presented via EMS today for progressive chest pains. 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 Dr. Avalos recommended discontinuing Wellbutrin, continue CCB and nitrates. Patient has had multiple stents since June 2024, with smoking as likely culprit. Patient is now very motivated to discontinue smoking. Dr. Avalos recommended admission and monitoring. Pain showed improvement. Adjustments made to medications. Cardiology assisted with care during admission. Stable discharge home with close follow-up as an outpatient for further management. 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 Cardiology consulted, s/p [facility] with GONSALO x 2 to RCA to areas with moderate arthrosclerotic plaque likely causing vasospasms. Prinzmetal angina versus coronary vasospasm at moderate arthrosclerotic plaque. Dr. Avalos recommended discontinuing Wellbutrin. Had no change in her symptoms during admission. Continued to be intermittent. Adjustments made to blood pressure medication and antianginals. Cardiology assisted with care during admission. Discontinued her valsartan. Continue loaded 5 mL twice daily, Bumex decreased to 0.5 mg daily, continue isosorbide mononitrate 30 mg daily and metoprolol succinate 12 and half milligrams daily. Continue aspirin and prasugrel daily. Continue ranolazine 500 mg twice daily. Continue spironolactone 12 and half milligrams daily. Blood pressure 104/73 at time of discharge. - A1c 5.5, TSH 0.58. No thyroid disease or diabetes. Hyperlipidemia: Continue Crestor 40 mg daily #Tobacco use disorder: Nicotine patch 21 mg daily during admission. Motivated to stop smoking. Strongly encouraged smoking cessation. Continue patches at discharge Total time spent on discharge 32 minutes in counseling, documentation, chart review, and direct care with patient. Exam Data for Last 24 hours Vital signs and Labs for Last 24 Hours: Temp Pulse Resp BP Pulse Ox O2 Del Method 97.6 F 56 L 14 107/57 L 96 Room Air 01/08/25 04:00 01/08/25 04:00 01/08/25 04:00 01/08/25 04:00 01/08/25 04:00 01/08/25 06:53 Laboratory Results - last 24 hr 01/08/25 05:41: WBC 11.3 H D, RBC 4.49, Hgb 13.7, Hct 41.5, MCV 92.4, MCH 30.5, MCHC 33.0, RDW 13.1, Plt Count 182, MPV 11.1 H, Neut % (Auto) 53.5, Lymph % (Auto) 33.9, [place] % (Auto) 8.4, Eos % (Auto) 3.5, Baso % (Auto) 0.4, Neut # (Auto) 6.1, Lymph # (Auto) 3.8, [place] # (Auto) 1.0, Eos # (Auto) 0.4, Baso # (Auto) 0.0, Sodium 138, Potassium 3.9, Chloride 109 H, Carbon Dioxide 24, Anion Gap 8.9, BUN 13, Creatinine 1.00, Estimated Creat Clear 108, Estimated GFR 60, Est GFR ( Amer) 72, Glucose 92, Calcium 8.9, Magnesium 1.9, Total Bilirubin 0.4, AST 26 D, ALT 18, Alkaline Phosphatase 78, Total Protein 6.8, Albumin 3.8, Globulin 3.0, Albumin/Globulin Ratio 1.3 I & O for Last 24 hours: Intake & Output 01/05/25 01/06/25 01/07/25 01/08/25 23:59 23:59 23:59 23:59 Intake Total 1312 / 1812 500 / 500 Output Total 0 / 0 0 / 0 0 / 0 Balance 0 / 222 1312 / 1812 500 / 500 Weight 96 kg 90.718 kg 97.097 kg Constitutional Constitutional: no acute distress, obese and cooperative *Routine HEENT Exam Head: Present normocephalic Eye: Present EOMI and PERRL ENT: Present mucous membranes moist *Routine Neck Exam Neck: Present supple; Absent lymphadenopathy *Routine Respiratory Exam Respiratory: Present CTA bilaterally; Absent rhonchi, wheezes or crackles *Routine Cardiovascular Exam Cardiovascular: Present RRR *Routine Abdominal Exam Abdominal: Present soft and normoactive bowel sounds; Absent tenderness *Routine Rectal Exam Patient deferred: visual exam *Routine Exam Patient deferred: external exam *Routine Extremities Exam Extremities: Absent cyanosis, clubbing or edema *Routine Skin Exam Skin: Present intact and warm; Absent rash *Routine Neurological Exam Neurological: Present alert, oriented X3 and moving all extremities; Absent altered mental status Results Data Completed and Pending Labs on day of discharge: Labs from last 24 hours 01/08/25 05:41 WBC 11.3 H D RBC 4.49 Hgb 13.7 Hct 41.5 MCV 92.4 MCH 30.5 MCHC 33.0 RDW 13.1 Plt Count 182 MPV 11.1 H Neut % (Auto) 53.5 Lymph % (Auto) 33.9 [place] % (Auto) 8.4 Eos % (Auto) 3.5 Baso % (Auto) 0.4 Neut # (Auto) 6.1 Lymph # (Auto) 3.8 [place] # (Auto) 1.0 Eos # (Auto) 0.4 Baso # (Auto) 0.0 Sodium 138 Potassium 3.9 Chloride 109 H Carbon Dioxide 24 Anion Gap 8.9 BUN 13 Creatinine 1.00 Estimated Creat Clear 108 Estimated GFR 60 Est GFR ( Amer) 72 Glucose 92 Calcium 8.9 Magnesium 1.9 Total Bilirubin 0.4 AST 26 D ALT 18 Alkaline Phosphatase 78 Total Protein 6.8 Albumin 3.8 Globulin 3.0 Albumin/Globulin Ratio 1.3 DS: Diagnosis Discharge Diagnosis (1) STEMI (ST elevation myocardial infarction): Status: Acute Code(s): I21.3 - ST elevation (STEMI) myocardial infarction of unspecified site Qualifiers: Involved coronary artery: right coronary artery Qualified Code(s): I21.11 - ST elevation (STEMI) myocardial infarction involving right coronary artery (2) Diastolic dysfunction: Status: Acute Code(s): I51.89 - Other ill-defined heart diseases (3) Elevated left ventricular end-diastolic pressure (LVEDP): Status: Acute Code(s): R94.30 - Abnormal result of cardiovascular function study, unspecified (4) Tobacco user: Status: Acute Code(s): Z72.0 - Tobacco use (5) Chest pain: Status: Acute Code(s): R07.9 - Chest pain, unspecified (6) Coronary artery disease: Status: Acute Code(s): I25.10 - Atherosclerotic heart disease of [place] coronary artery without angina pectoris Qualifiers: Associated angina: with other forms of angina Coronary Disease-Associated Artery/Lesion type: [place] artery [place] vs. transplanted heart: [place] heart Qualified Code(s): I25.118 - Atherosclerotic heart disease of [place] coronary artery with other forms of angina pectoris (7) Hypertension: Status: Acute Code(s): I10 - Essential (primary) hypertension Qualifiers: Hypertension type: primary hypertension Qualified Code(s): I10 - Essential (primary) hypertension (8) Hyperlipidemia: Status: Acute Code(s): E78.5 - Hyperlipidemia, unspecified Qualifiers: Hyperlipidemia type: mixed hyperlipidemia Qualified Code(s): E78.2 - Mixed hyperlipidemia Meds Home Medications and Allergies Home Medications ?Medication ?Instructions ?Recorded ?Confirmed ?Type aspirin 81 mg tablet,delayed 81 mg PO DAILY 05/29/24 01/06/25 History release prasugrel HCl 10 mg tablet 10 mg PO DAILY #30 tabs 07/10/24 01/06/25 Rx (Effient) rosuvastatin 40 mg tablet (Crestor) 40 mg PO DAILY #30 tabs 08/20/24 01/06/25 Rx pantoprazole 40 mg tablet,delayed 40 mg PO DAILY #30 tabs 09/02/24 01/06/25 Rx release (Protonix) bupropion HCl 150 mg tablet,12 hr 150 mg PO BID #87 tabs 12/24/24 01/06/25 Rx sustained-release (Wellbutrin SR) ranolazine 500 mg tablet,extended 500 mg PO BID #180 tabs 12/24/24 01/06/25 Rx release,12 hr meclizine 25 mg tablet 25 mg PO TIDP PRN dizziness 01/06/25 01/06/25 History nicotine 1 patch transdermal Q24H 01/06/25 01/06/25 History 21mg/24hr-14mg/24hr-7mg/24hr daily transderm patches,sequentl amlodipine 5 mg tablet 5 mg PO BID 30 days #60 tabs 01/08/25 Rx bumetanide 1 mg tablet 0.5 mg (1/2 x 1 mg) PO DAILY 30 01/08/25 Rx days #15 tabs isosorbide mononitrate 30 mg 30 mg PO DAILY #30 tabs 01/08/25 Rx tablet,extended release 24 hr metoprolol succinate 25 mg 12.5 mg (1/2 x 25 mg) PO DAILY 30 01/08/25 Rx tablet,extended release 24 hr days #15 tabs nicotine 1 patch transdermal Q24H #56 01/08/25 Rx 21mg/24hr-14mg/24hr-7mg/24hr daily patches transderm patches,sequentl spironolactone 25 mg tablet 12.5 mg (1/2 x 25 mg) PO DAILY 30 01/08/25 Rx days #15 tabs New Prescriptions to Start Prescriptions: tracyodipine Danish Pearson bumetanide Michel,Danish isosorbide mononitrate Danish Pearson metoprolol succinate Michel,Danish spironolactone Danish Pearson Allergies Allergy/AdvReac Type Severity Reaction Status Date / Time Penicillins (PENICILLINS) Allergy Mild Unknown Verified 12/31/24 11:25 allergy reaction Discharge Plan Disposition Patient Disposition: Home, Self-Care Condition: Fair Discharge Order Discharge Orders: Discharge Order (Routine); Ordered 01/08/25 Ordered By: Danish Pearson Follow up Plan Follow up with: Valerie Khanna APRN [Primary Care Provider] - 01/22/25 5:00 pm (Please call on 01/22 earlier in the day to ask if labs are needed and provider will work on an earlier time for this appointment.) Toni Gimenez MD [Staff Physician] - 01/21/25 10:45 am Prescriptions/Medication Reconciliation: New amlodipine 5 mg Tablet 5 mg PO BID 30 Days Qty: 60 0RF bumetanide 1 mg Tablet 0.5 mg PO DAILY 30 Days Qty: 15 0RF isosorbide mononitrate 30 mg Tablet Extended Release 24 Hr 30 mg PO DAILY Qty: 30 0RF spironolactone 25 mg Tablet 12.5 mg PO DAILY 30 Days Qty: 15 0RF metoprolol succinate 25 mg Tablet Extended Release 24 Hr 12.5 mg PO DAILY 30 Days Qty: 15 0RF Continued aspirin 81 mg tablet,delayed release (DR/EC) 81 mg PO DAILY pantoprazole [Protonix] 40 mg tablet,delayed release (DR/EC) 40 mg PO DAILY Qty: 30 5RF ranolazine 500 mg tablet extended release 12 hr 500 mg PO BID Qty: 180 1RF bupropion HCl [Wellbutrin SR] 150 mg tablet sustained-release 12 hr 150 mg PO BID Qty: 87 0RF rosuvastatin [Crestor] 40 mg tablet 40 mg PO DAILY Qty: 30 5RF prasugrel HCl [Effient] 10 mg Tablet 10 mg PO DAILY Qty: 30 6RF meclizine 25 mg tablet 25 mg PO TIDP PRN (Reason: dizziness) nicotine 21-14-7 mg/24 hr patch, TD daily, sequential 1 patch transdermal Q24H Rx Instructions: 21 mg daily x 14 days 14 mg daily x 14 days 7 mg daily x 14 days Discontinued verapamil 240 mg capsule,ext rel. pellets 24 hr 240 mg PO DAILY Qty: 90 1RF bumetanide 2 mg tablet 2 mg PO DAILY Qty: 30 5RF spironolactone [Aldactone] 100 mg tablet 100 mg PO DAILY Qty: 30 5RF metoprolol succinate 50 mg tablet extended release 24 hr 75 mg PO BID 30 Days Qty: 90 5RF valsartan 320 mg tablet 320 mg PO DAILY Qty: 30 11RF No Action nicotine 21-14-7 mg/24 hr patch, TD daily, sequential 1 patch transdermal Q24H Qty: 56 0RF Rx Instructions: Start with the 21 mg Nicotine Patch for 14 Days 14 mg patch for 14 days 7 mg patch for 7 days Problem Reconciliation Problems Reviewed?: Yes Patient Discharge Instructions ACTIVITY: Continue current activity DIET: continue same diet Patient Instructions: DI for Heart Attack, DI for Cardiac Catheterization, DI for Surgical Site Infection, Stop Light Heart Failure Print Language: [place] Providers Primary Care Provider: Valerie Khanna Admit Provider: Louis Navarrete Attending Provider: Louis Navarrete
[2025-01-08 08:00] VITALS: BP 106/69; PULSE 53; PULSE 55; RESP 16; TEMP 36.4; O2SAT 96
[2025-01-08] MEDS: ISOSORBIDE MONO 60MG TAB.ER.24H 60 MG PO (08:25)
[2025-01-08] MEDS: BUMETANIDE 1 MG TABLET PO (08:26)
[2025-01-08] MEDS: ASPIRIN EC 81MG TABLET 81 MG PO (08:26)
[2025-01-08] MEDS: METOPROLOL SUCCINATE XL 25MG TABLET 25 MG PO (08:26)
[2025-01-08] MEDS: AMLODIPINE 5MG TABLET 5 MG PO (08:26)
[2025-01-08] MEDS: SPIRONOLACTONE 25MG TABLET 50 MG PO (08:26)
[2025-01-08] MEDS: RANOLAZINE 500MG ER TABLET 500 MG PO (08:27)
[2025-01-08] MEDS: ENOXAPARIN 40MG/0.4ML SYRINGE 40 MG SUBCUT (08:27)
[2025-01-08] MEDS: PRASUGREL 10MG TAB 10 MG PO (08:27)
[2025-01-08] MEDS: NICOTINE 21MG/24HR PATCH 21 MG TD (08:30)
[2025-01-08 11:35] VITALS: BP 104/73; PULSE 67; RESP 16; TEMP 36.6; O2SAT 97
--- NOTE | 2025-01-08 11:39 | EXP.CARD.PN ---
Subjective Subjective Date: 01/08/25 Time: 11:39 Principal diagnosis: STEMI Interval history: 44 yo WF in bed in NAD. States chest pain persists despite the coronary stenting and meds. Some dizziness with low BP noted. Will adjust meds to allow more norvasc. Exam Data for Last 24 hours Vital signs and Labs for Last 24 Hours: Temp Pulse Resp BP Pulse Ox O2 Del Method 97.9 F 67 16 104/73 L 97 Room Air 01/08/25 11:35 01/08/25 11:35 01/08/25 11:35 01/08/25 11:35 01/08/25 11:35 01/08/25 11:00 Laboratory Results - last 24 hr 01/08/25 05:41: WBC 11.3 H D, RBC 4.49, Hgb 13.7, Hct 41.5, MCV 92.4, MCH 30.5, MCHC 33.0, RDW 13.1, Plt Count 182, MPV 11.1 H, Neut % (Auto) 53.5, Lymph % (Auto) 33.9, [place] % (Auto) 8.4, Eos % (Auto) 3.5, Baso % (Auto) 0.4, Neut # (Auto) 6.1, Lymph # (Auto) 3.8, [place] # (Auto) 1.0, Eos # (Auto) 0.4, Baso # (Auto) 0.0, Sodium 138, Potassium 3.9, Chloride 109 H, Carbon Dioxide 24, Anion Gap 8.9, BUN 13, Creatinine 1.00, Estimated Creat Clear 108, Estimated GFR 60, Est GFR ( Amer) 72, Glucose 92, Calcium 8.9, Magnesium 1.9, Total Bilirubin 0.4, AST 26 D, ALT 18, Alkaline Phosphatase 78, Total Protein 6.8, Albumin 3.8, Globulin 3.0, Albumin/Globulin Ratio 1.3 I & O for Last 24 hours: Intake & Output 01/05/25 01/06/25 01/07/25 01/08/25 11:59 11:59 11:59 11:59 Intake Total 712 / 712 1300 / 1300 Output Total 0 / 0 0 / 0 Balance 712 / 712 1300 / 1300 Weight 211 lb 10.3 oz 200 lb 214 lb 1 oz Constitutional Constitutional: no acute distress *Routine Respiratory Exam Respiratory: Present CTA bilaterally *Routine Cardiovascular Exam Cardiovascular: Present RRR Progress Note: A&P Assessment and plan (1) STEMI (ST elevation myocardial infarction): Status: Acute (2) Diastolic dysfunction: Status: Acute (3) Elevated left ventricular end-diastolic pressure (LVEDP): Status: Acute (4) Tobacco user: Status: Acute (5) Chest pain: Status: Acute (6) Coronary artery disease: Status: Acute (7) Hypertension: Status: Acute (8) Hyperlipidemia: Status: Acute (9) Borderline diabetes: Status: Acute Assessment and Plan Assessment and Plan for All Diagnoses:: 1. STEMI -GONSALO to RCA -ASA and effient -echo shows normal EF with no significant valve disease -increase norvasc -decrease metoprolol, isosorbide, bumex and spironolactone -hold valsartan in favor of anti-spasmodic meds 2. Tobacco use -nicotine patch in place 3. Hyperlipidemia -continue Crestor 40 mg daily 4. HTN/HHD - on BB and CCB - reduce bumex and spironolactone due to symptomatic low BP - hold valsartan for now due to low BP OK for discharge. Follow up in one week. Home meds: Aspirin 81 mg daily Effient 10 mg daily Ranexa 500 mg twice daily Atorvastatin 80 mg daily Amlodipine 5 mg twice daily Isosorbide mononitrate 30 mg daily Metoprolol succinate 12.5 mg daily Aldactone 12.5 mg daily Bumex 0.5 mg daily
--- NOTE | 2025-01-09 10:06 | SW/DCPLANNER ---
Spoke with patient on the phone. Patient stated that she is doing about the same. Patient stated that she is aware of her upcoming appointments. 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 Patient denies any concerns or questions at this time. Jade Denise
== END 2025-01-08 14:43 | disposition home or self-care (01) | DRG 322 ==
LOC: 2ND 13:45
PROVIDERS: Internal Medicine; Internal Medicine Adolescent Medicine; Admitting Provider Student in an Organized Health Care Education/Training Program; PCP Nurse Practitioner; Visit Provider Student in an Organized Health Care Education/Training Program
PROC: 027035Z Dilation of Coronary Artery, One Artery with Two Drug-eluting Intraluminal Devices, Percutaneous Approach (ICD-10-PCS; principal; 2025-01-06 11:05)
DX: I21.11 ST elevation (STEMI) myocardial infarction involving right coronary artery (principal); I25.10 Atherosclerotic heart disease of native coronary artery without angina pectoris; I25.83 Coronary atherosclerosis due to lipid rich plaque; I77.1 Stricture of artery; F17.210 Nicotine dependence, cigarettes, uncomplicated; I10 Essential (primary) hypertension; Z88.0 Allergy status to penicillin; Z95.5 Presence of coronary angioplasty implant and graft; E78.5 Hyperlipidemia, unspecified; K21.9 Gastro-esophageal reflux disease without esophagitis; Z79.899 Other long term (current) drug therapy; Z79.82 Long term (current) use of aspirin
CPT/HCPCS: 36415; 80048; 80053; 83036; 83735; 84439; 84443; 85025; 85347; 87633; 92928; 92978; 93308; 93458; 99152; 99153; C1725; C1769; C1874; C1894; C9600; J1200; J1644; J1650; J2720; J3010; Q9967

== ENCOUNTER 2025-03-02 09:41 | Day surgery (SDC) | payer OTHER, SELFPAY ==
--- OUTSIDE RECORDS SUMMARY | 2025-03-02 09:45 | XMS_ITS | Continuity of Care Document ---
Author Organization [employer] [facility] Address [address] [place] [address] Assessment No assessment recorded. Plan of Treatment Reminders Order Date Submit Date Provider Last Modified By Organization Details Last Modified Time Details Appointments FOLLOW UP 15 2024 08:30A M Simone Khanna APRN Not available Not available Not available Lab None recorded . Referral None recorded . Procedures None recorded . Surgeries None recorded . Imaging None recorded . Medication Orders None recorded . Patient TargetsNo targets recorded. Patient InstructionsNo instructions recorded. Reason for Referral None Reported. Results Created Date Observation Date Name Description Value Unit Range Abnormal Flag Note LastModifiedBy Organization Detail LastModifiedTime 01/08/2001/07/2025 stres s echoc ardio gram No observ ation record ed. [email or web address] [facility] [address], [place], [address], 01/08/2025 14:28:30 Result Notes None recorded. Problems Name Problem SNOMED Code Status Onset Date Resolution Date Notes Provider Name and Address Organization Details Recorded Time Hyperlip idemia 99545162 Active 2023 Marleni michelle [place]. 4 08:49:59 Persiste nt cough 970270573 Active 2023 Marleni michelle [place]. 4 13:24:43 Cough 90200246 Active 2023 Problem Code: R05; Problem Code Type: ICD-10; Marleni michelle [place]. 4 13:24:54 Vitamin B deficien cy 70076286 Active 2019 Problem Code: E53.9; Problem Code Type: ICD-10; Not Available [facility] 2 22:10:55 Vitamin D deficien cy 10468356 Active 2019 Problem Code: E55.9; Problem Code Type: ICD-10; Not Available [facility] 2 22:10:55 Mixed hyperlip idemia 691923790 Active 2019 Problem Code: E78.2; Problem Code Type: ICD-10; Not Available [facility] 2 22:10:55 Nicotine dependen ce 97424469 Active 2019 Problem Code: F17.200; Problem Code Type: ICD-10; Not Available [facility] 2 22:10:55 Acute non-supp urative serous otitis media 558628926 Completed 202009/21/2022 Problem Code: H65.01; Problem Code Type: ICD-10; BRANDON michelle [place]. 3 10:48:35 Acute serous otitis media of bilatera l ears 29890428590 97103 Completed 201601/14/2017 Problem Code: H65.03; Problem Code Type: ICD-10; Not Available [facility] 2 22:10:56 Bilatera l earache 358824178 Completed 201610/11/2016 Not Available [facility] 2 22:10:56 Hyperten sive disorder 90354357 Active 2019 Problem Code: I10; Problem Code Type: ICD-10; Not Available [facility] 2 22:10:56 Atherosc lerosis of aorta 18322651 Active 2018 Problem Code: I70.0; Problem Code Type: ICD-10; Not Available [facility] 2 22:10:56 Acute sinusiti s 05364149 Completed 201610/11/2016 Problem Code: J01.90; Problem Code Type: ICD-10; Not Available [facility] 2 22:10:56 Acute pharyngi tis 873586173 Completed 201710/26/2018 Problem Code: J02.8; Problem Code Type: ICD-10; Not Available [facility] 2 22:10:56 Acute pharyngi tis 134861793 Completed 201902/26/2020 Not Available [facility] 2 22:10:56 Influenz a 5388007 Completed 201809/21/2022 Problem Code: J10.1; Problem Code Type: ICD-10; BRANDON michelle, [employer] 3 10:48:35 Allergic rhinitis 41273851 Completed 201912/06/2022 Problem Code: J30.9; Problem Code Type: ICD-10; CARRIE michelle, [employer] 3 16:53:29 Acute sialoade nitis 369310985 Completed 201605/15/2018 Problem Code: K11.21; Problem Code Type: ICD-10; Not Available [facility] 2 22:10:56 Acute lymphade nitis of face, head and neck 782766253 Completed 201604/15/2017 Problem Code: L04.0; Problem Code Type: ICD-10; Not Available [facility] 2 22:10:56 Pain of joint of ankle 784210189 Completed 201909/21/2022 BRANDON michelle, [employer] 3 10:48:35 Limitati on of movement of temporom andibula r joint 95425629 Completed 201605/15/2018 Problem Code: M26.52; Problem Code Type: ICD-10; Not Available [facility] 2 22:10:57 Low back pain 580005618 Completed 202009/21/2022 Problem Code: M54.5; Problem Code Type: ICD-10; BRANDON michelle, [employer] 3 10:48:35 Low back pain 379040490 Completed 201802/26/2020 Problem Code: M54.5; Problem Code Type: ICD-10; BRANDNO DOWDNER miguel angel, [place]. 10:48:35 Spasm of back muscles 818029435 Completed 202009/21/2022 Problem Code: M62.830; Problem Code Type: ICD-10; BRANDON DOWDNER miguel angel, [employer]. 3 10:48:35 Acute cystitis 91391591 Completed 201607/25/2017 Problem Code: N30.00; Problem Code Type: ICD-10; Not Available [facility] 22:10:57 Diarrhea 25245313 Completed 201812/06/2022 Problem Code: R19.7; Problem Code Type: ICD-10; CARRIE WHITTAKERMIKALAMigue miguel angel, [place]. 3 16:53:29 Dizzines s and giddines s 632744400 Completed 201902/26/2020 Problem Code: R42; Problem Code Type: ICD-10; Not Available [facility] 2 22:10:58 Chronic fatigue syndrome 38548971 Active 2019 Problem Code: R53.82; Problem Code Type: ICD-10; Not Available [facility] 2 22:10:58 Breast composit ion 241785532 Active 2020 Problem Code: R92.2; Problem Code Type: ICD-10; Not Available [facility] 2 22:10:58 General examinat ion of patient Completed 201909/01/2021 BRANDON DOWDNER miguel angel, [employer] 3 10:48:35 General examinat ion of patient Completed 202009/21/2022 BRANDON DOWDNER miguel angel, [employer] 3 10:48:35 Screenin g mammogra phy Completed 201909/01/2021 Problem Code: Z12.31; Problem Code Type: ICD-10; Not Available [facility] 2 22:10:59 Screenin g for malignan t neoplasm of cervix Completed 201909/01/2021 Problem Code: Z12.4; Problem Code Type: ICD-10; Not Available [facility] 2 22:10:59 Acute sinusiti s 45603508 Completed 201705/29/2018 Problem Code: J01.90; Problem Code Type: ICD-10; Not Available [facility] 2 22:10:59 [facility] 3[facility] Active 2021 Problem Code: Z68.28; Problem Code Type: ICD-10; Not Available [facility] 22:11:00 [facility] 25-29 [facility] [place] 995966082 Completed 201709/01/2021 Problem Code: Z68.26; Problem Code Type: ICD-10; Not Available [facility] 2 22:11:00 Acute non-supp urative serous otitis media 828277635 Completed 201601/14/2017 Problem Code: 381.01; Problem Code Type: ICD-9; BRANDON michelle, [employer] 3 10:48:35 Otogenic otalgia 21394577 Completed 201610/11/2016 Problem Code: 388.71; Problem Code Type: ICD-9; Not Available [facility] 2 22:11:01 Cough 94940850 Completed 201610/11/2016 Problem Code: R05; Problem Code Type: ICD-10; Marleni michelle, [employer] 4 13:24:54 Sialoade nitis 84260920 Completed 201605/15/2018 Problem Code: 527.2; Problem Code Type: ICD-9; Not Available [facility] 2 22:11:01 Finding of body mass index 735385395 Completed 201709/01/2021 Problem Code: V85.22; Problem Code Type: ICD-9; Not Available [facility] 22:11:02 Body mass index 25-29 - [place] 595077748 Completed 202009/01/2021 Problem Code: Z68.29; Problem Code Type: ICD-10; Not Available [facility] 22:11:02 Acute lymphade nitis 32939321 Completed 201604/15/2017 Problem Code: 683; Problem Code Type: ICD-9; Not Available [facility] 22:11:02 Problem Notes None recorded. Procedures Surgical History Date Name Laterality Status Provider Name and Address Organization Details Recorded Time 12/18/19 25 cardiac catheterization completed [facility] 12/19/2024 09:53:48 04/17/20 Most Recent Mammogram completed [facility]. 03/26/2023 10:22:31 Imaging Results None recorded. Procedure Notes None recorded. Medical Equipment None Reported. Allergies Allergen ID Allergen Name Allergen Category Reaction Reaction Severity Criticality Documentation Date Start Date Code Code System Note Provider Name and Address Organization Details Recorded Time 43862 Product containin g penicilli n (product) medicatio n Not available Not available Not available 05/23/2022 96068 8001 SNISAIAH michelle [employer] 10:47:43 Medications Name Sig Start Date Stop Date Status Note LastModified by Organization Details LastModified Time cyclobenz aprine 10 mg tablet Take 1 tablet 3 times a day by oral route as needed. 08/18 completed Not Available Not Available Not Available furosemid e 40 mg tablet Take 1 tablet every day by oral route for 30 days. 01/08 completed Not Available Not Available Not Available atorvasta tin 40 mg tablet take 1 tablet (40 mg) by oral route once daily at bedtime 08/18 completed Not Available Not Available Not Available promethaz ine-DM 6.25 mg-15 mg/5 mL oral syrup Take 5 mL every 6 hours by oral route as needed. 03/26 completed Not Available Not Available Not Available Bumex 1 mg tablet Take 1 tablet every day by oral route. 01/08 completed Not Available Not Available Not Available clindamyc in HCl 300 mg capsule take 1 capsule (300 mg) by oral route 2 times per day for 7 days 03/03 completed Not Available Not Available Not Available cetirizin e 10 mg tablet Take 1 tablet(s ) by mouth daily 11/15 completed Not Available Not Available Not Available azithromy janae 250 mg tablet Take 2 tablet(s ) by mouth on day 1 then 1 tablet every day for the next 4 days. 06/05 completed Not Available Not Available Not Available Bumex 2 mg tablet Take 1 tablet every day by oral route. active Not Available Not Available No t Available ibuprofen 800 mg tablet TAKE 1 TABLET (800 MG) BY ORAL ROUTE 3 TIMES PER DAY WITH FOOD NEEDED PAIN active Not Available Not Available No t Available metoprolo l succinate ER 50 mg tablet,ex tended release 24 hr Take 1 tablet(s ) by mouth daily 01/22 completed Not Available Not Available Not Available isosorbid e mononitra te ER 30 mg tablet,ex tended release 24 hr Take 1 tablet twice a day by oral route. active cardio Not Available Not Available No t Available spironola ctone 100 mg tablet Take 1 tablet every day by oral route. 01/22 completed Not Available Not Available Not Available prednison e 5 mg tablet 7pills po today and decrease by one q day 04/15 completed Not Available Not Available Not Available Ultram 50 mg tablet one by mouth every 6 hours as needed 04/15 completed Not Available Not Available Not Available potassium chloride ER 10 mEq tablet,ex tended release Take 1 tablet every day by oral route for 14 days. 09/24 completed Not Available Not Available Not Available amlodipin e 5 mg tablet Take 1 tablet twice a day by oral route. active cardio Not Available Not Available No t Available aspirin 81 mg tablet,de layed release take 1 tablet (81 mg) by oral route once daily active Not Available Not Available No t Available spironola ctone 25 mg tablet Take 0.5 tablets every day by oral route. active cardio Not Available Not Available No t Available verapamil 120 mg tablet Take 2 tablets every day by oral route. 01/08 completed Not Available Not Available Not Available Zofran 4 mg tablet Take 1 tablet(s ) by mouth q 4-6 hours prn 12/02 completed Not Available Not Available Not Available isosorbid e mononitra te ER 60 mg tablet,ex tended release 24 hr 01/22 completed Not Available Not Available Not Available potassium chloride ER 20 mEq tablet,ex tended release(p art/cryst ) 09/24 completed Not Available Not Available Not Available meclizine 25 mg tablet 06/05 completed Not Available Not Available Not Available amlodipin e 10 mg tablet Take 1 tablet every day by oral route. 09/04 completed Not Available Not Available Not Available pantopraz ole 40 mg tablet,de layed release Take 1 tablet every day by oral route. active Not Available Not Available No t Available oseltamiv ir 75 mg capsule take 1 capsule (75 mg) by oral route 2 times per day 12/04 completed Not Available Not Available Not Available valsartan 320 mg tablet Take 1 tablet every day by oral route. 01/22 completed Not Available Not Available Not Available nitroglyc jackson 0.4 mg sublingua l tablet PLACE 1 TABLET (0.4 MG) BY SUBLINGU AL ROUTE AT 1ST SIGN OF ATTACK; MAY REPEAT EVERY 5 MINUTES UP TO 3 TABS; IF NO RELIEF SEEK MEDICAL HELP active cardio Not Available Not Available No t Available diclofena c sodium 75 mg tablet,de layed release TAKE 1 TABLET BY MOUTH TWICE DAILY 08/06 completed cant take with ibuprofe n Not Available Not Available Not Available hydrochlo rothiazid e 25 mg tablet take one tablet once a day for 14 days 08/18 completed Not Available Not Available Not Available metoprolo l succinate ER 25 mg tablet,ex tended release 24 hr Take 0.5 tablets every day by oral route. active cardio Not Available Not Available No t Available Bumex 0.5 mg tablet Take 1 tablet every day by oral route. active Not Available Not Available No t Available methylpre dnisolone 4 mg tablets in a dose pack 03/26 completed Not Available Not Available Not Available Vitamin D2 1,250 mcg (50,000 unit) capsule take 1 capsule (50,000 unit) by oral route 3 times week for 3 months 09/21 completed Not Available Not Available Not Available cefdinir 300 mg capsule 2 capsules po after the evening meal, once a day 04/15 completed Not Available Not Available Not Available losartan 100 mg tablet take 1 tablet (100 mg) by oral route once daily 08/18 completed Not Available Not Available Not Available fluticaso ne propionat e 50 mcg/actua tion nasal spray,jesus pension 1 spray(s) each nostril bid 11/15 completed Not Available Not Available Not Available loratadin e 10 mg tablet Take 1 tablet every day by oral route. 08/18 completed Not Available Not Available Not Available verapamil ER 240 mg 24 hr capsule,e xtended release Take 1 capsule every day by oral route. 01/22 completed Not Available Not Available Not Available Ventolin HFA 90 mcg/actua tion aerosol inhaler Inhale 2 puffs every 4 hours by inhalati on route as needed. 03/26 completed Not Available Not Available Not Available meclizine 25 mg chewable tablet active Not Available Not Available Not Available Bactrim DS 800 mg-160 mg tablet one tablet by mouth twice a day for 3 days 09/09 completed Not Available Not Available Not Available rosuvasta tin 40 mg tablet Take 1 tablet every day by oral route. active Not Available Not Available No t Available Crestor 10 mg tablet Take 1 tablet(s ) by mouth daily 12/10 completed Not Available Not Available Not Available tizanidin e 4 mg capsule 1 Tablet every 6 hoursas needed 03/04 completed Not Available Not Available Not Available Nitro active Not Available Not Availa ble Not Available ranolazin e ER 500 mg tablet,ex tended release,1 2 hr Take 1 tablet twice a day by oral route. active Not Available Not Available No t Available ranolazin e ER 1,000 mg tablet,ex tended release,1 2 hr Take 1 tablet twice a day by oral route for 30 days. 01/08 completed Not Available Not Available Not Available prasugrel HCl 10 mg tablet Take 1 tablet every day by oral route for 30 days. active Not Available Not Available No t Available potassium chloride ER 20 mEq tablet,ex tended release Take 1 tablet every day by oral route for 2 days. 09/24 completed Not Available Not Available Not Available bupropion HCl 150 mg tablet,12 hr sustained -release( smoking deterrent ) Take 1 tablet twice a day by oral route. active Not Available Not Available No t Available metoprolo l succinate ER 50 mg capsule sprinkle, ext. release 24 hr Take 1 capsule twice a day by oral route. 01/22 completed cardio Not Available Not Available Not Available Paxlovid 300 mg (150 mg x 2)-100 mg tablets in a dose pack Take 1 dose pk by oral route as directed . 03/26 completed Not Available Not Available Not Available Vitals Date Recorded Body height Body mass index (BMI) Body weight Heart rate Oxygen saturation Oxygen saturation in Arterial blood by Pulse oximetry Systolic blood pressure Diastolic blood pressure Provider Name and Address Organization Details Last Updated DateTime 172.72 cm 31.2 kg/m2 19170.4 4 g 76 /min 98 % 98 % 128 mm[Hg] 84 mm[Hg] Rosalinda Salomon [place] [employer] 16:54:40 Social History Question Answer Notes LastModified by Organizat ion Details LastModified Time Tobacco Smoking Status Current Every Day Smoker SocialHist oryQuestio n: 'Tobacco/A lcohol/Sup plements'; SocialHist oryRespons e: 'Current tobacco smoker (CAD, CAP, COPD, PV)1 (DM)4'; Not Available [facility] 05/23/2022 22:59:45 Is Your Home Air Conditioned? Yes Information not available 03/26/2023 Are You Blind Or Do You Have Difficulty Seeing? No Information not available 03/26/2023 What Is Your Level Of Caffeine Consumption? Occasional Information not available 03/26/2023 Are You A Caregiver? No Information not available 03/26/2023 Have You Been To An Area Known To Be High Risk For COVID-19? No Information not available 03/26/2023 Are You Deaf Or Do You Have Serious Difficulty Hearing? No Information not available 03/26/2023 Who Is Your Employer? [employer] Information not available 03/26/2023 Have There Been Any Changes To Your Family Or Social Situation? No Information not available 03/26/2023 What Was The Date Of Your Most Recent Tobacco Screening? 01/22/2025 Information not available 01/22/2025 What Is Your Current Pack Years? 20-29packyears Information not available 03/26/2023 What Is Your Relationship Status? Information not available 03/26/2023 Do You Use Your Seat Belt Or Car Seat Routinely? Yes Information not available 03/26/2023 Do You Have Smoke And Carbon Monoxide Detectors In Your Home? Yes Information not available 03/26/2023 How Much Tobacco Do You Smoke? 1 PPD Information not available 03/26/2023 Has Tobacco Cessation Counseling Been Provided? Yes Information not available 03/26/2023 On What Date Was Tobacco Cessation Counseling Provided? 01/22/2025 Information not available 01/22/2025 Have You Recently Traveled Abroad? No Information not available 03/26/2023 Do You Have Difficulty Walking Or Climbing Stairs? No Information not available 03/26/2023 Sex: Female Functional Status Question Answer Note LastModified by Organizat ion Details LastModified Time Do you use any illicit or recreational drugs? No Information not available 03/26/2023 What is your level of alcohol consumption? Occasional Information not available 03/26/2023 Are you currently employed? Yes Information not available 03/26/2023 Do you have transportation difficulties? No Information not available 03/26/2023 Are you able to walk? YESWOREST Information not available 03/26/2023 Do you have difficulty doing errands alone? No Information not available 03/26/2023 Are you able to care for yourself? Yes Information n ot available 03/26/2023 Do you have difficulty dressing or bathing? No Information not available 03/26/2023 Mental Status Question Answer Note LastModified by Organization D etails LastModified Time Do you have difficulty concentrating, remembering or making decisions? No Information no t available 03/26/2023 Family History Relationship Description Onset Age of this Age Resolved Age Notes LastModified by Organization Details LastModified Time Unspecified Relation Family history of congestive heart failure Relati ve: ''; [email or web address] Not available 05/23/2022 22:59:23 Unspecified Relation Family history of Respiratory disease Relati ve: ''; [email or web address] Not available 05/23/2022 22:59:23 Unspecified Relation Family history of diabetes mellitus type 2 Relati ve: ''; [email or web address] Not available 05/23/2022 22:59:24 Notes:*Procedure Description : Documented family medical history in mother*Relative: Mother Medical History Condition Response Hospitalizations Y ADD/ADHD N Emergency room visit since last appointm ent. Y Abuse/Domestic Violence N Hypertension Y Gynecological History Statement/Question Response Date of Last Pap Smear Most Recent Mammogram 04/17/2022 Obstetrics History GPAL:G 0 P 0 0 0 0 Immunizations Vaccine Type Date Status Note Provider Nam e and Address Organization Details Recorded Time Tdap 07/06/2015 completed BRANDON michelle [facility] [employer] 09/21/2022 10:47:36 Past Encounters Encounter ID Performer Location Encounter Start Date Encounter Closed Date Diagnosis/Indication Diagnosis SNOMED-CT Code Diagnosis ICD10 Code Diagnosis Note [id number] Valerie Khanna [address] [address] 01/22/2025 16:36:58 01/22/2025 17:24:[address] segment elevation myocardial infarction 3857587543 35548 I25.2 Body mass index 30+ - obesity 672640780 Z68.31 Health Concerns Section Related Observation LastModified by Organization Detai ls LastModified Time None Recorded Concern Status LastModified by Organization Details LastModified Time None Recorded Payers Encounter Date Sequence Insurance Name Policy Number Policy Crane Covered Member ID Crane Member ID Guarantor Name 01/22/2025 1 [employer] [facility] (MEDICAID HMO) Valerie Reese [id number] Valerie Reese Notes Date Note Type Note Provider Name and Address Organization Details Recorded Time 01/22/2025 text/html pt here today fo r a hospital f/u. pt has recently had STEMI x2. pt meds have changed and states that she feels okay but states that she has a heart condition where her vessels spasm and the stents wont help. she has been prescribed nitro in hopes that will help. pt states that if her cardio cant figure out something in the next couple of months then she is going to transfer to [facility]. Valerie Khanna, PI[employer] TECHNICIAN [address], [place], [address], [facility] [employer] 01/22/2025 17:57:04 OBGyn Episode No OBEpisode recorded.
[2025-03-02 10:29] VITALS: BP 155/85; PULSE 76; RESP 17; TEMP 36.1; O2SAT 97; BMI 31.9
--- NOTE | 2025-03-03 11:20 | HMH.PROCNOTE ---
[facility] Procedure Note Date: 03/02/25 Time: 10:00 Procedure Note:: Procedure: Upright tilt table test Requiring physician: Eduarda Wheeler MD Indication: Presyncope and dizziness Pretest vital signs: 149/81, 86 bpm, sats 98% on room air Procedure summary: Patient was prepared per protocol. She was tilted into the upright position of 70 degrees for a total of 30 minutes with the test being terminated due to headache and dizziness. She had no syncope. She had mild fluctuations in her blood pressure during exam fluctuating between 129 and 140 systolic. Please see attachment. Patient remained in normal sinus rhythm for duration of testing. Oxygen saturation remained in the high 90s. Patient was discharged home in stable condition. Complications: Dizziness and headache starting at 1120
== END 2025-03-02 11:54 | disposition home or self-care (01) ==
LOC: RT 03-03 08:43
PROVIDERS: PCP Nurse Practitioner; Visit Provider Specialist
DX: R42 Dizziness and giddiness (principal); R51.9 Headache, unspecified; I25.10 Atherosclerotic heart disease of native coronary artery without angina pectoris; I10 Essential (primary) hypertension; E78.5 Hyperlipidemia, unspecified; Z79.82 Long term (current) use of aspirin; Z95.5 Presence of coronary angioplasty implant and graft
CPT/HCPCS: 93660

== ENCOUNTER 2025-05-26 14:14 | Outpatient (CLI) | payer OTHER, SELFPAY ==
--- OUTSIDE RECORDS SUMMARY | 2025-05-26 14:15 | XMS_ITS | Clinical Summary ---
Author Organization Healthcare Address [address] [place] [address] Care Team Providers Care Criminal Legal Assistant Name Role Phone Maral Corcoran Primary Care Provider [phone] Encounters Date Type Department Care Team Description 04/07/2025 [facility] [address] [place] [phone] Anh Rob DMD Extraction of tooth needed (Primary Dx) from Last 3 Months Social History Tobacco Use Types Packs/Day Years Used Date Smoking Tobacco: Every Day Comments Unknown Sex and Gender Information Value Date Recorded Sex Assigned at Not on file Legal Sex Female 8:34 PM EDT Gender Identity Not on file Sexual Orientation Not on file Last Filed Vital Signs Vital Sign Reading Time Taken Comments Blood Pressure 104/67 03/14/2019 9:28 AM EDT Pulse 69 03/14/2019 9:28 AM EDT Temperature 36.7 C (98 F) 03/14/2019 9:28 AM EDT Respiratory Rate 20 02/28/2019 8:07 AM EDT Oxygen Saturation - - Inhaled Oxygen Concentration - - Weight 83.5 kg (183 lb 15.9 oz) 03/14/2019 9:28 AM EDT Height 172.7 cm (5' 8 ) 03/14/2019 9:28 AM EDT Body Mass Index 27.98 03/14/2019 9:28 AM EDT Plan of Treatment Not on file Insurance [employer] D[employer] Care Teams Criminal Legal Assistant Relationship Specialty Start Date End Date Maral Corcoran [address] [place] [id number] PCP - General 01/28/21
--- OUTSIDE RECORDS SUMMARY | 2025-05-26 14:15 | XMS_ITS | Encounter Summary ---
Author Organization Healthcare Address [address] 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 [facility] [address] [place] [address] [address] [place] [address] Phone: tel: Referral ID Status Reason Start Date Expiration Date Visits Requested Visits Authorized [id number] Authorized Specialty Services Required 04/07/2025 10/07/2026 1 1 Encounter Details Date Type Department Care Team (Late st Contact Info) Description 04/07/2025 Community Orders Community Practice [address] [place] [address] Anh oRb DMD [address] [place], [place] [id number] Extraction of tooth needed (Primary Dx) Social History Tobacco Use Types Packs/Day Years Used Date Smoking Tobacco: Every Day Comments Unknown Sex and Gender Information Value Date Recorded Sex Assigned at Not on file Legal Sex Female 8:34 PM EDT Gender Identity Not on file Sexual Orientation Not on file documented as of this encounter Plan of Treatment Scheduled Referrals Name Type Priority Associated Diagnoses Order Schedule Ambulatory referral to Oral Maxillofacial Surgery Outpatient Referral Routine Extraction of tooth needed Ordered: 04/07/2025 documented as of this encounter Visit Diagnoses Diagnosis Extraction of tooth needed- Primary documented in this encounter Care Teams Senior Linux Systems Administrator Relationship Specialty Start Date End Date Maral Corcoran [address] [place] [id number] PCP - General 01/28/21 documented as of this encounter
[2025-05-26 14:35] LABS: Hematocrit 43.2 % (37.0-47.0); Hemoglobin 14.5 g/dL (12.2-16.2); Immature Granulocytes % 0.4 %; Mean Corpuscular HGB Conc 33.6 g/dL (31.8-35.4); Mean Corpuscular Hemoglobin 29.4 pg (27.0-31.2); Mean Corpuscular Volume 87.6 fl (81-99); Nucleated Red Blood Cells % 0 %; Platelet Count 261 K/mm3 (142-424); Red Blood Count 4.93 M/mm3 (4.20-5.40); Red Cell Distribution Width-SD 42.5 fL; White Blood Count 10.5 K/mm3 (4.8-10.8)
[2025-05-26 14:39] LABS: Chloride 101 mmol/L (98-107); Sodium 140 mmol/L (136-145)
[2025-05-26 14:40] LABS: Potassium 3.2 mmoL/L (3.5-5.1)
[2025-05-26 14:42] LABS: Blood Urea Nitrogen 10 mg/dl (7-17); Creatinine,Serum 0.70 mg/dl (0.52-1.04); Estimated Glomerular Filt Rate 90 ml/min (>60); GFR (African American) 109 ML/MIN (>60)
[2025-05-26 14:43] LABS: Anion Gap 15.2 mEq/L (5-15); Calcium 9.5 mg/dl (8.4-10.2); Carbon Dioxide 27 mmol/L (22.0-30.0); Glucose 109 mg/dl (74-100)
[2025-05-26 14:56] LABS: Troponin I < 0.01 ng/ml (0.00-0.034)
== END 2025-05-26 23:59 | disposition home or self-care (01) ==
LOC: LAB 14:14
PROVIDERS: PCP Nurse Practitioner; Visit Provider Physician Assistant
DX: I25.119 Atherosclerotic heart disease of native coronary artery with unspecified angina pectoris (principal); I10 Essential (primary) hypertension; E78.5 Hyperlipidemia, unspecified
CPT/HCPCS: 36415; 80048; 84484; 85025

== ENCOUNTER 2025-06-19 09:12 | Day surgery (SDC) | payer OTHER, SELFPAY ==
[2025-06-19] VITALS (20 sets, daily range): BP systolic 98–173; BP diastolic 59–98; PULSE 50–90; RESP 16–20; TEMP 36.1–36.9; O2SAT 90–98; BMI 33.9
--- NOTE | 2025-06-19 07:33 | IR_ITS ---
APPROVED REPORT Patient Location: Outpatient PROCEDURES Left heart catheterization Left ventriculogram Selective coronary angiogram INDICATION Known multivessel coronary artery disease, Worsening angina pectoris Informed consent was obtained prior to the procedure. COMPLICATIONS none Estimated Blood Loss: less than 10ml TECHNIQUE One percent lidocaine was used to anesthetize the right groin. The right femoral artery was accessed via the Seldinger technique. A 4-Kazakh sheath was placed in the right femoral artery. The JL-4 and JR-4 catheter was also used to perform left heart catheterization left ventriculogram and selective coronary angiogram. At the end of the procedure the patient was transferred to the post-op holding area in stable condition for arterial sheath removal. ANGIOGRAPHIC RESULTS The left main artery Normal The left anterior descending artery Has stents in the proximal segment which extends into a large second diagonal artery. The stents are widely patent. Inside the diagonal artery the ostium is 20 to 30% stenosis. Immediately distal to the large diagonal artery the mid LAD has a 30 to 40% nonflow limiting stenosis The circumflex artery Nondominant with proximal smooth 10 to 20% stenosis with additional 20% stenosis and a large first obtuse marginal artery The right coronary artery Large and dominant with stents in the proximal mid and distal segment which are widely patent free of in-stent restenosis with excellent proximal distal transitioning The CALLAHAN ventriculogram reveals Hyperdynamic at 70 to 75% The left ventricular end-diastolic pressure 10 mmHg IMPRESSION Patent coronary arteries as described above Hyperdynamic ventricle Normal LVEDP PLAN 1. Patient is hypertensive during the cardiac catheterization. I recommend maximizing antianginal medications. Will add amlodipine 10 mg daily 2. Continue risk factor modification Electronically signed by : Hipolito Avalos MD 06/19/2025 10:55:21
[2025-06-19 09:30] LABS: Hematocrit 43.9 % (37.0-47.0); Hemoglobin 14.8 g/dL (12.2-16.2); Immature Granulocytes % 0.7 %; Mean Corpuscular HGB Conc 33.7 g/dL (31.8-35.4); Mean Corpuscular Hemoglobin 29.8 pg (27.0-31.2); Mean Corpuscular Volume 88.3 fl (81-99); Nucleated Red Blood Cells % 0 %; Platelet Count 289 K/mm3 (142-424); Red Blood Count 4.97 M/mm3 (4.20-5.40); Red Cell Distribution Width-SD 43.4 fL; White Blood Count 13.4 K/mm3 (4.8-10.8)
[2025-06-19 09:48] LABS: Chloride 100 mmol/L (98-107); Potassium 3.7 mmoL/L (3.5-5.1); Sodium 139 mmol/L (136-145)
[2025-06-19] MEDS: HEPARIN 1,000 UNITS/500ML NS (CATH LAB) 3000 UNIT IV (09:50)
[2025-06-19] MEDS: 0.9 % SODIUM CHLORIDE 500 ML 25 ML IV (09:50)
[2025-06-19] MEDS: LIDOCAINE 1% 10ML MDV 10 ML IJ (09:50)
[2025-06-19 09:51] LABS: Blood Urea Nitrogen 12 mg/dl (7-17); Creatinine Clearance Estimated 187 mL/min (50-200); Creatinine,Serum 0.60 mg/dl (0.52-1.04); Estimated Glomerular Filt Rate 108 ml/min (>60); GFR (African American) 130 ML/MIN (>60)
[2025-06-19 09:52] LABS: Anion Gap 15.7 mEq/L (5-15); Calcium 9.3 mg/dl (8.4-10.2); Carbon Dioxide 27 mmol/L (22.0-30.0); Glucose 113 mg/dl (74-100)
[2025-06-19 10:34] LABS: HCG Qualitative, Serum Negative (Negative)
[2025-06-19] MEDS: FENTANYL 100MCG/2ML VIAL 50 MCG IV (10:47)
[2025-06-19] MEDS: MIDAZOLAM HCL 1MG/ML 5ML VIAL 1 MG IV (10:49)
[2025-06-19] MEDS: IOPAMIDOL-370 (76%);100ML BOTTLE 50 ML IV (11:14)
== END 2025-06-19 14:14 | disposition home or self-care (01) ==
LOC: CATHLAB 09:12
PROVIDERS: PCP Nurse Practitioner; Visit Provider Internal Medicine
PROC: 4A023N7 Measurement of Cardiac Sampling and Pressure, Left Heart, Percutaneous Approach (ICD-10-PCS; CPT 93452; principal; 2025-06-19 11:00)
DX: I25.118 Atherosclerotic heart disease of native coronary artery with other forms of angina pectoris (principal); R94.30 Abnormal result of cardiovascular function study, unspecified; I10 Essential (primary) hypertension; R06.02 Shortness of breath; E78.2 Mixed hyperlipidemia; I25.2 Old myocardial infarction; Z87.891 Personal history of nicotine dependence; Z79.82 Long term (current) use of aspirin; Z79.899 Other long term (current) drug therapy; Z95.5 Presence of coronary angioplasty implant and graft; Z88.0 Allergy status to penicillin; Z82.49 Family history of ischemic heart disease and other diseases of the circulatory system
CPT/HCPCS: 80048; 84703; 85025; 93458; 99152; C1725; C1769; J1200; J1644; J2003; J3010; J7040; Q9967